=== PATIENT | female | born 1980 | race Caucasian/White ===

== ENCOUNTER 2020-06-14 09:21 | Emergency (ER) | payer MEDICAID, SELFPAY ==
[2020-06-14 09:56] VITALS: BP 120/83; PULSE 69; RESP 17; TEMP 36.3; O2SAT 120; BMI 40.2
--- NOTE | 2020-06-14 10:19 | ED_ITS ---
HPI - Ear Problem General Chief complaint: Ear Problems Stated complaint: ear pain Time Seen by Provider: 06/14/20 09:52 Source: patient Mode of arrival: ambulatory History of Present Illness HPI Narrative: 49-year-old female presenting to the ED complaining of right ear pain since last night. Admits pain radiates to head. Denies fever, chills, sore throat, hearing loss, drainage from ear, recent swimming/trauma MD Complaint: ear pain Location: right ear Related Data Previous Rx's Medication Instructions Recorded acetaminophen [Tylenol Extra 500 mg PO Q6H PRN #20 tab 06/14/20 Strength] amoxicillin-pot clavulanate 1 tab PO Q12H 7 Days #14 tab 06/14/20 [Augmentin] ibuprofen 400 mg PO Q6H 7 Days #28 tab 06/14/20 Allergies Allergy/AdvReac Type Severity Reaction Status Date / Time No Known Allergies Allergy Verified 06/14/20 09:58 [No Known Allergies*] Review of Systems Review of Systems: Constitutional: No Weight loss, No Fever, No Chills ENT/Mouth: + Ear Pain, No Nasal Congestion, No Sinus Pain, No Hoarseness, No sore throat, No Rhinorrhea, No Swallowing Difficulty Cardiovascular: No Chest Pain, No SOB Respiratory: No Cough Skin: No Skin Lesions, No rash Neuro: No Weakness, No Numbness, No Paresthesias Yes all other systems are reviewed and are negative FOR[facility]LY [facility], [facility] Past Medical History Attestation statement: The following information was validated with the patient. Social History Social History Advance Directives: No Advance Directives Information Provided: No Physical Exam Vital Signs: Vital Signs: Last Vital Signs Temp 97.4 F 06/14/20 09:56 Pulse 69 06/14/20 09:56 Resp 17 06/14/20 09:56 BP 120/83 06/14/20 09:56 Pulse Ox 120 H 06/14/20 09:56 Body Mass Index 40.2 Const: General: cooperative and healthy appearing Orientation/consciousness: patient oriented x3 Limitations: no limitations HENMT: Other: No mastoid tenderness Head: Yes normal to inspection Ears: hearing grossly normal bilaterally, TM normal on the left, mastoids normal and TM abnormal with fluid behind the TM on the right General nose exam: Normal external nose present Face and sinus: Yes normal facial exam Mouth: Normal oral and palatal mucosa present Throat: Yes posterior oropharynx normal and Yes uvula midline Eyes: General: appearance normal, both eyes and all related structures EOM: EOMs intact bilaterally Neck: Neck: Yes normal visual inspection, Yes no lymphadenopathy and Yes no meningeal signs Resp: Effort & Inspection: normal respiratory effort Skin: Rashes: no rashes Wounds: no wounds Neuro: General: patient oriented x3 and no meningeal signs Gait exam (Neuro): Normal gait present Extrem: General: Yes normal to inspection MDM - Ear MDM Narrative Medical decision making narrative: Fluid noted behind right TM. Discharge Plan Discharge Clinical Impression: Otitis media Patient Disposition: Home, Self-Care Additional Instructions: You have an inner ear infection, Augmentin as an antibiotic, take as prescribed Tylenol & ibuprofen will help with the pain Make sure your staying hydrated at home Follow-up with her doctor If symptoms persist or worsen, he developed drainage from ear, or hearing loss return to the ED immediately Prescriptions: New acetaminophen [Tylenol Extra Strength] 500 mg tablet 500 mg PO Q6H PRN (Reason: pain or fever) Qty: 20 RF: 0 ibuprofen 400 mg tablet 400 mg PO Q6H 7 Days Qty: 28 RF: 0 amoxicillin-pot clavulanate [Augmentin] 875-125 mg tablet 1 tab PO Q12H 7 Days Qty: 14 RF: 0 Referrals: [facility] [Primary Care Provider] - 2 days Print Language: Chadian
[2020-06-14] MEDS: Ibuprofen 600 MG TABLET PO (10:35)
[2020-06-14] MEDS: Amoxicillin/Potassium Clav 875 MG TABLET PO (10:35)
== END 2020-06-14 10:39 | disposition home or self-care (01) ==
PROVIDERS: Emergency Provider Emergency Medicine
DX: H66.91 Otitis media, unspecified, right ear (principal); H92.01 Otalgia, right ear; Z79.899 Other long term (current) drug therapy
CPT/HCPCS: 99283

== ENCOUNTER 2020-06-28 06:28 | Emergency (ER) | payer MEDICAID, SELFPAY ==
[2020-06-28 06:44] VITALS: BP 134/87; PULSE 78; RESP 16; TEMP 36.8; O2SAT 98; BMI 42.0
--- NOTE | 2020-06-28 07:06 | ED_ITS ---
HPI - URI/Sore Throat General Chief Complaint: Upper Respiratory Symptoms Stated Complaint: SOB Time Seen by Provider: 06/28/20 06:53 Source: patient History of Present Illness HPI Narrative: 39-year-old female who presents to the emergency department for evaluation of cough and chest pain. The patient states that she developed a strong cough last night. She states that she is coughing frequently. She describes the cough is nonproductive. She states that when she coughs forcefully she does have some mild , intermittent, midsternal chest tightness. She states that this is intermittent and only associated with coughing. She denied shortness of breath or dyspnea on exertion. The patient does have a history of asthma and states that she often gets asthma flare ups with change in weather. The patient does have an albuterol inhaler that she has when she is coughing and short of breath but she ran out of her inhaler and had used her 's inhaler last night. She denied fever, chills, nausea, vomiting, myalgias, arthralgias, fatigue, loss of sense of taste or smell. 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 Patient states approximately 2 weeks prior she was seen in the emergency department for an ear infection and was treated with Augmentin which improved her symptoms. Related Data Previous Rx's Medication Instructions Recorded acetaminophen [Tylenol Extra 500 mg PO Q6H PRN #20 tab 06/14/20 Strength] amoxicillin-pot clavulanate 1 tab PO Q12H 7 Days #14 tab 06/14/20 [Augmentin] ibuprofen 400 mg PO Q6H 7 Days #28 tab 06/14/20 albuterol sulfate 2 puff INHALATION Q4H PRN #18 g 06/28/20 prednisone 60 mg PO DAILY 5 Days #15 tab 06/28/20 Allergies Allergy/AdvReac Type Severity Reaction Status Date / Time No Known Allergies Allergy Verified 06/14/20 09:58 [No Known Allergies*] Review of Systems Review of Systems: Yes all other systems are reviewed and are negative Constitutional: Constitutional: Reports as per HPI Cardiovascular: Cardiovascular: Reports as per HPI Respiratory: Respiratory: Reports as per HPI Gastrointestinal: Gastrointestinal: Reports as per HPI Genitourinary: Genitourinary: Reports as per HPI Musculoskeletal: Musculoskeletal: Reports as per HPI Integumentary/Breasts: Skin/Breast: Reports as per HPI Neurologic: Reports as per HPI and Reports Abnormal speech present Psychiatric: Psychiatric: Reports as per HPI FORMERLY [facility], [facility] Past Medical History Medical History Asthma Social History Social History (Updated 06/28/20 @ 07:10 by Srini Phillips MD) Alcohol intake: never Smoking Status: Never smoker Use of substances other than those prescribed or required for medical reasons: No Advance Directives: Yes Advance Directives Information Provided: Yes Advance Directives on File: No Current occupational status: employed Current occupation: The patient works in a school cafeteria Physical Exam Vital Signs: Vital Signs: Last Vital Signs Temp 98.3 F 06/28/20 06:44 Pulse 78 06/28/20 06:44 Resp 16 06/28/20 06:44 BP 134/87 06/28/20 06:44 Pulse Ox 97 06/28/20 07:11 Body Mass Index 42.0 Const: General: cooperative, no acute distress, well developed, alert and awake Orientation/consciousness: oriented to person HENMT: Head: Yes normal to inspection, Yes normocephalic and Yes atraumatic Ears: hearing grossly normal bilaterally General nose exam: Normal external nose present Face and sinus: Yes normal facial exam Mouth: Normal oral and palatal mucosa present, lip normal, tongue normal, oropharynx normal and moist mucous membranes Throat: Yes posterior oropharynx normal, Yes tonsils normal and Yes uvula midline Eyes: General: appearance normal, both eyes and all related structures Eyelids: Yes eyelids normal Conjunctivae: conjunctivae normal Sclerae: sclerae normal Corneas: corneas normal Pupils: Equal, round and reactive pupils present Neck: Neck: Yes normal visual inspection, Yes no lymphadenopathy, Yes trachea midline and Yes supple Thyroid: Thyroid normal Lymphatic: no lymphadenopathy noted Chest: Chest palpation & inspection: normal inspection of the chest and normal palpation of entire chest wall Resp: Effort & Inspection: normal respiratory effort and able to speak in complete sentences Auscultation: clear to auscultation bilaterally Cardio: Rate: regular rate Rhythm: regular rhythm Heart sounds: S1 normal heart sound present, S2 normal heart sound present and no murmurs GI: Inspection: Yes normal to inspection Palpation (GI): Soft to palpation, nontender and No hepatosplenomegaly present Auscultation: normal bowel sounds : General: Yes no CVA tenderness Back/Spine/Pelvis: Back: no CVA tenderness Thoracic/Lumbar Spine: thoracic and lumbar spine normal to inspection Skin: General skin exam: no rashes or lesions noted, no erythema and no jaundice Lesions: no lesions Rashes: no rashes Trauma: no lacerations or abrasions Wounds: no wounds Neuro: General: oriented to person, moves all extremities and no focal motor deficits Cranial nerves: Yes Equal, round and reactive pupils present Cognition (Neuro): normal cognition Speech: Abnormal speech present Motor exam (neuro): Motor abnormalities not present Extrem: General: Yes normal to inspection, Yes no pedal edema and Yes no calf tenderness Right upper extremity: normal to inspection Left upper extremity: normal to inspection Right lower extremity: normal to inspection Left lower extremity: normal to inspection Psych: Appearance: grossly normal Mental Status: mental status grossly normal Speech and movement: Normal speech and movement present Affect: normal affect Attitude: cooperative Thought process: Normal thought process present Insight: Good insight present (Psych) Course Course Course Narrative: 39-year-old female with a history of asthma who presents to the emergency department for evaluation of nonproductive x1 day with associated chest tightness with coughing, no shortness of breath or dyspnea on exertion. The patient does have asthma and uses her inhaler only when she is ill, she ran out of her albuterol inhaler and had to use her 's inhaler last night. Physical examination was unremarkable with normal vital signs and a normal O2 saturation of 98%. Patient's presentation is consistent with an asthma flare up possibly due to a viral infection verses weather change. The patient will be started on prednisone 60 mg once a day for 5 days and given a prescription for an albuterol inhaler. Patient also given a note to not return to work for 2 days. She was given printed instructions and these were reviewed with her prior to her discharge. She was advised to return to emergency department if her symptoms get worse or she develops any symptoms that were concerning to her. Please note the patient's 1st language is Indian and I did use the psychiatry teacher to obtain a history from her in the emergency department. MDM - URI/Sore Throat Differential Diagnosis Differential diagnosis: Likely upper respiratory infection, viral infection and bronchitis Medical Records Attestation: I reviewed the patient's medical records. Discharge Plan Discharge Clinical Impression: Asthma exacerbation Qualifiers: Asthma severity: mild Asthma persistence: intermittent Qualified Code(s): J45.21 - Mild intermittent asthma with (acute) exacerbation Upper respiratory infection Qualifiers: URI type: unspecified URI Qualified Code(s): J06.9 - Acute upper respiratory infection, unspecified Patient Disposition: Home, Self-Care Instructions: Asthma (ED) Prescriptions: New albuterol sulfate 90 mcg/actuation HFA aerosol inhaler 2 puff inhalation Q4H PRN (Reason: shortness of breath or wheezing) Qty: 18 RF: 0 prednisone 20 mg tablet 60 mg PO DAILY 5 Days Qty: 15 RF: 0 No Action acetaminophen [Tylenol Extra Strength] 500 mg tablet 500 mg PO Q6H PRN (Reason: pain or fever) Qty: 20 RF: 0 ibuprofen 400 mg tablet 400 mg PO Q6H 7 Days Qty: 28 RF: 0 amoxicillin-pot clavulanate [Augmentin] 875-125 mg tablet 1 tab PO Q12H 7 Days Qty: 14 RF: 0 Referrals: Aurelia Martínez MD [Primary Care Provider] - 2 days Stand Alone Forms: Work/School Release
[2020-06-28 07:11] VITALS: O2SAT 97
[2020-06-28 08:17] VITALS: BP 146/92; PULSE 69; RESP 16; TEMP 36.8
== END 2020-06-28 08:24 | disposition home or self-care (01) ==
PROVIDERS: Emergency Provider Emergency Medicine Emergency Medical Services; PCP Internal Medicine
DX: J45.21 Mild intermittent asthma with (acute) exacerbation (principal); J06.9 Acute upper respiratory infection, unspecified; R05 Cough; Z79.899 Other long term (current) drug therapy
CPT/HCPCS: 99284

== ENCOUNTER 2020-08-01 08:36 | Emergency (ER) | payer MEDICAID, SELFPAY ==
[2020-08-01 08:43] VITALS: BP 119/85; PULSE 82; RESP 18; TEMP 36.5; O2SAT 98; BMI 36.1
--- NOTE | 2020-08-01 09:36 | ED_ITS ---
HPI - Female Genitourinary General Chief complaint: Urogenital-Female Stated complaint: URINE BURNING Time Seen by Provider: 08/01/20 09:15 Source: patient Mode of arrival: ambulatory History of Present Illness HPI Narrative: 39-year-old female with a past medical history of asthma presenting to the ED complaining of dysuria and sensation of incomplete bladder emptying since yesterday. Denies fever, chills, nausea/vomiting, abdominal pa in, flank pain, vaginal bleeding or discharge MD elicited complaint: dysuria Related Data Previous Rx's Medication Instructions Recorded acetaminophen [Tylenol Extra 500 mg PO Q6H PRN #20 tab 06/14/20 Strength] amoxicillin-pot clavulanate 1 tab PO Q12H 7 Days #14 tab 06/14/20 [Augmentin] ibuprofen 400 mg PO Q6H 7 Days #28 tab 06/14/20 albuterol sulfate 2 puff INHALATION Q4H PRN #18 g 06/28/20 prednisone 60 mg PO DAILY 5 Days #15 tab 06/28/20 Allergies Allergy/AdvReac Type Severity Reaction Status Date / Time No Known Allergies Allergy Verified 06/14/20 09:58 [No Known Allergies*] Review of Systems Review of Systems: Constitutional: No Weight loss, No Fever, No Chills Gastrointestinal: No Nausea, No Vomiting, No Diarrhea, No Constipation, No Abdominal pain Genitourinary:+ Dysuria, No Urinary Frequency, No Hematuria, No Urinary Incontinence, No Urgency, No Flank Pain, +incomplete emptying Skin: No Skin Lesions, No rash Yes all other systems are reviewed and are negative PMFSH Past Medical History Attestation statement: The following information was validated with the patient. Medical History Asthma Social History Social History (Updated 06/28/20 @ 07:10 by Srini Phillips MD) Alcohol intake: unknown Smoking Status: Unknown if ever smoked Use of substances other than those prescribed or required for medical reasons: No Advance Directives: No Advance Directives Information Provided: No Current occupational status: employed Current occupation: The patient works in a school cafeteria Physical Exam Vital Signs: Vital Signs: Last Vital Signs Temp 97.7 F 08/01/20 08:43 Pulse 82 08/01/20 08:43 Resp 18 08/01/20 08:43 BP 119/85 08/01/20 08:43 Pulse Ox 98 08/01/20 08:43 Body Mass Index 36.1 Const: General: cooperative and healthy appearing Orientation/consciousness: patient oriented x3 Limitations: no limitations HENMT: Head: Yes normal to inspection Ears: hearing grossly normal bilaterally General nose exam: Normal external nose present Face and sinus: Yes normal facial exam Eyes: General: appearance normal, both eyes and all related structures EOM: EOMs intact bilaterally Neck: Neck: Yes normal visual inspection Resp: Effort & Inspection: normal respiratory effort Cardio: Rate: regular rate GI: Inspection: Yes normal to inspection Palpation (GI): Soft to palpation, nontender, no guarding and not rigid : General: Yes no CVA tenderness Back/Spine/Pelvis: Back: no CVA tenderness Skin: Rashes: no rashes Wounds: no wounds Neuro: General: patient oriented x3 Gait exam (Neuro): Normal gait present Extrem: General: Yes normal to inspection Course Course Course Narrative: * UA negative * Pre and postvoid bladder scan showing bladder appropriately emptying Results discussed with patient in historic interpreter. Discussed follow-up with PCP/Urology as needed. No need for blood work at this time as no CVAT or abdominal tenderness, vital signs stable, nontoxic MDM - Female Genitourinary MDM Narrative Medical decision making narrative: 39-year-old female with a past medical history of asthma presenting to the ED complaining of dysuria and sensation of incomplete bladder emptying since yesterday. On exam VS, NAD/well appearing, abdomen soft/nontender, no CVAT. Likely UTI. Lower concern for renal stone or intra-abdominal pathology. Rule out urinary retention. Lower concern for STI Plan: Pre and post void bladder scan, UA Lab Data Labs: Lab Results 08/01/20 Range/Units 09:45 Urine Color YELLOW Urine Appearance CLEAR Urine pH 6.5 (5.0-8.0) Ur Specific [place] 1.020 (1.005-1.025) Urine Protein NEG (NEG-TRACE) MG/DL Urine Glucose (UA) NEG (NEG) MG/DL Urine Ketones NEG (NEG) MG/DL Urine Blood NEG (NEG) Urine Nitrite NEG (NEG) Ur Leukocyte Esterase NEG (NEG) Discharge Plan Discharge Clinical Impression: Dysuria Patient Disposition: Home, Self-Care Instructions: Dysuria (ED) Additional Instructions: Your urine was unremarkable today in the ED. your bladder scan showed that her bladder is emptying appropriately. Make sure your staying hydrated at home. Follow up with her doctor, you may also follow-up with Urology. If her symptoms persist or worsen, he develops fever, blood in her urine, abdominal pain, or back pain return to the ED Tu orina no fue notable hoy en el servicio de urgencias. braxton exploraci?n de la vejiga mostr? que braxton vejiga se est? vaciando adecuadamente. Aseg?rate de mantenerte hidratado en casa. Mj un seguimiento con braxton m?dico, tambi?n puede hacer un seguimiento con Urolog?a. Si julio c s?ntomas persisten o empeoran, ?l presenta fiebre, pardeep en la orina, dolor abdominal o dolor de espalda y regresa al servicio de urgencias. Prescriptions: No Action acetaminophen [Tylenol Extra Strength] 500 mg tablet 500 mg PO Q6H PRN (Reason: pain or fever) Qty: 20 RF: 0 ibuprofen 400 mg tablet 400 mg PO Q6H 7 Days Qty: 28 RF: 0 amoxicillin-pot clavulanate [Augmentin] 875-125 mg tablet 1 tab PO Q12H 7 Days Qty: 14 RF: 0 albuterol sulfate 90 mcg/actuation HFA aerosol inhaler 2 puff inhalation Q4H PRN (Reason: shortness of breath or wheezing) Qty: 18 RF: 0 prednisone 20 mg tablet 60 mg PO DAILY 5 Days Qty: 15 RF: 0 Referrals: Helen Holden MD [Primary Care Provider] - 2 days Frankie Gonzalez MD [Physician] - 1 week Print Language: Upper Sorbian
[2020-08-01 09:52] LABS: Appearance Urine CLEAR; Color Urine YELLOW; Glucose Urine UA NEG (NEG); Leukocyte Esterase Urine NEG (NEG); Nitrite Urine NEG (NEG); PH 6.5 (5.0-8.0); Urine Blood NEG (NEG); Urine Ketones NEG (NEG); Urine Protein NEG (NEG-TRACE)
== END 2020-08-01 11:15 | disposition home or self-care (01) ==
PROVIDERS: Physician Assistant; Emergency Provider Emergency Medicine Emergency Medical Services; PCP Internal Medicine
DX: R30.0 Dysuria (principal); Z79.899 Other long term (current) drug therapy
CPT/HCPCS: 51798; 81003; 99283; 99284

== ENCOUNTER 2020-08-16 10:24 | Outpatient (REF) | payer MEDICAID, SELFPAY | END 2020-08-16 10:25 | disposition home or self-care (01) | LOC: HO.LAB 10:24 | PROVIDERS: Visit Provider Internal Medicine | DX: Z20.822 Contact with and (suspected) exposure to COVID-19 (principal) | CPT/HCPCS: 36415; C9803; U0003 ==

== ENCOUNTER 2020-09-23 04:40 | Emergency (ER) | payer MEDICAID, SELFPAY ==
--- NOTE | ~2020-09-23 | CT_ITS ---
EXAMINATION: CT ABDOMEN AND PELVIS WITH CONTRAST CLINICAL INFORMATION: Right lower quadrant pain COMPARISON: Ultrasound of September 13, 2018 TECHNIQUE: Multidetector volumetric images were obtained from the superior aspect of the liver through the pubic symphysis following administration 85 mL of Omnipaque 350 intravenous contrast. Sagittal and coronal reformatted images were obtained on the technologist's workstation. Oral contrast: No This CT examination was performed using dose optimization techniques as appropriate, variously including the following: *Automated exposure control *Adjustment of mA and/or kV according to patient size (this includes techniques or standardized protocols for targeted exams where dose is matched to indication/reason for exam; i.e. extremities or head) *Use of iterative reconstruction technique DLP: 1091 mGy-cm FINDINGS: LUNG BASES: The visualized lung bases are unremarkable. LIVER, GALLBLADDER, AND BILIARY TREE: The liver is normal in size, shape, and attenuation. No focal hepatic lesion or biliary ductal dilatation is present. The gallbladder is unremarkable with no evidence of radiopaque gallstones, gallbladder wall thickening, or obvious pericholecystic inflammatory changes. PANCREAS: Unremarkable. SPLEEN: Unremarkable. ADRENAL GLANDS: Unremarkable. KIDNEYS AND URETERS: The kidneys are normal in size, shape, and attenuation. No hydronephrosis, hydroureter, or calculi seen. No perinephric stranding. BLADDER: Unremarkable. GASTROINTESTINAL TRACT: No dilated loops of large or small bowel are evident. No free air or free fluid. No evidence of acute diverticulitis. The appendix is visualized and appears unremarkable. ABDOMINAL WALL: No significant hernia is appreciated. LYMPH NODES: No lymphadenopathy appreciated. VASCULAR: Unremarkable. PELVIC VISCERA: Unremarkable. OSSEOUS STRUCTURES: No acute destructive bony lesion appreciated. There is some degenerative change with marginal sclerosis seen involving the L5-S1 vertebral bodies. CT/CT abdomen pelvis w con IMPRESSION: No significant abnormality of the abdomen or pelvis identified. No evidence of acute appendicitis.
[2020-09-23 05:51] VITALS: BP 121/63; PULSE 69; RESP 18; TEMP 36.4; O2SAT 100
[2020-09-23 06:11] LABS: Glucose Urine UA NEG (NEG); Leukocyte Esterase Urine NEG (NEG); Nitrite Urine NEG (NEG); Specific Gravity - Urine >= 1.030 (1.005-1.025); Urine Blood TRACE (NEG); Urine Ketones NEG (NEG); Urine Protein NEG (NEG-TRACE)
[2020-09-23 06:13] LABS: Appearance Urine CLEAR; Color Urine YELLOW; UPreg QC Valid YES; Urine Pregnancy NEGATIVE (NEGATIVE)
[2020-09-23 06:30] LABS: Bacteria Urine 3+ /LPF; Mucus Urine 1+ /LPF; RBC Urine 0 /HPF (0); Squamous Epithelial Cell Urine 2+ /LPF; WBC Urine 0-2 /HPF (0-4)
--- NOTE | 2020-09-23 07:23 | ED.ABDPAIN ---
HPI - Abdominal Pain General Chief Complaint: Abdominal Pain Stated Complaint: flank Pain Time Seen by Provider: 09/23/20 07:19 Source: patient Mode of arrival: ambulatory Limitations: no limitations History of Present Illness HPI narrative: healthy 39 yo female just developed RLQ pain in the last few hours with nausea, states she had a normal day yesterday MD elicited complaint: abdominal pain Pertinent past history: none Onset (ago): hour(s) (3) Pain Consistency: constant Location: RUQ Severity: moderate Quality: cramping and stabbing Radiation: RLQ Migration to: no migration Exacerbating factors: movement Relieving factors: nothing Associated symptoms: nausea Related Data Previous Rx's Medication Instructions Recorded acetaminophen [Tylenol Extra 500 mg PO Q6H PRN #20 tab 06/14/20 Strength] amoxicillin-pot clavulanate 1 tab PO Q12H 7 Days #14 tab 06/14/20 [Augmentin] ibuprofen 400 mg PO Q6H 7 Days #28 tab 06/14/20 albuterol sulfate 2 puff INHALATION Q4H PRN #18 g 06/28/20 prednisone 60 mg PO DAILY 5 Days #15 tab 06/28/20 dicyclomine 20 mg PO TID PRN #30 tab 09/23/20 famotidine [Pepcid] 20 mg PO DAILY PRN #30 tab 09/23/20 ondansetron 4 mg PO Q8H PRN #20 tab 09/23/20 Allergies Allergy/AdvReac Type Severity Reaction Status Date / Time No Known Allergies Allergy Verified 06/14/20 09:58 [No Known Allergies*] Review of Systems Review of Systems Constitutional : No Weight loss, No Fever, No Chills ENT/Mouth : No sore throat, No Rhinorrhea Eyes: No Swelling, No Redness Cardiovascular : No Chest Pain, No SOB, NoEdema Respiratory : No Cough, No Sputum, No Wheezing Gastrointestinal : Positive Nausea, no Vomiting, no Diarrhea, positive abdominal Pain, No Hematochezia, No Melena Genitourinary : No Dysuria, No Urinary Frequency, No Hematuria, No Urgency Musculoskeletal : No joint pain, No Myalgias, No Joint Swelling Skin : No Skin Lesions, No rash Neuro : No Weakness, No Numbness, No Dizziness, No Headache Psych : No Anxiety/Panic, No Depression Heme/Lymph: No Bruising, No Lymphadenopathy Endocrine : No Polyuria, No Polydipsia All other systems reviewed and are negative. Physical Exam Vital Signs: Vital Signs: Last Vital Signs Temp 98.2 F 09/23/20 10:00 Pulse 58 09/23/20 10:00 Resp 18 09/23/20 10:00 BP 129/87 09/23/20 10:00 Pulse Ox 100 09/23/20 10:00 Body Mass Index 40.3 Appearance: Alert. Oriented X3. No acute distress. Eyes: Pupils equal, round and reactive to light. ENT: Pharynx normal. Neck: Normal inspection. Neck supple. CVS: Normal heart rate and rhythm. Pulses normal. Respiratory: No respiratory distress. Breath sounds normal. Abdomen: Soft and moderate RLQ ttp no rebound or guarding Skin: Skin warm and dry. Normal skin color. Normal skin turgor. Extremities: No lower extremity edema. No calf ttp Neuro: Oriented X 3. No motor deficit. No sensory deficit. Course Course Course Narrative: no acute findings, stable for DC MDM - Abdominal Pain MDM Narrative Medical decision making narrative: 39 yo female otherwise healthy with RLQ pain this AM and associated nausea will obtain labs, CT scan for appendicitis/cyst - IV Toradol for pain dispo per results and findings. Lab Data Result diagrams: 09/23/20 08:06 09/23/20 08:06 Labs: Lab Results 09/23/20 09/23/20 09/23/20 Range/Units 06:05 06:05 08:06 WBC 4.7 L (4.8-10.8) X10*3/uL RBC 4.24 (4.20-5.50) X10*6/uL Hgb 12.8 (12.0-16.0) g/dl Hct 37.8 (37-47) % MCV 89.2 (80-98) fL MCH 30.2 (27.0-33.0) pg MCHC 33.9 (31.0-35.0) g/dl RDW 11.9 (11.0-16.0) % Plt Count 217 (160-400) X10*3/uL MPV 9.1 L (9.4-12.3) fL Immature Gran % (Auto) 0.2 (0.0-0.4) % Neut % (Auto) 68.9 (45-73) % Lymph % (Auto) 21.9 (20-40) % [place] % (Auto) 6.7 (2-11) % Eos % (Auto) 1.9 (0-4) % Baso % (Auto) 0.4 (0-2) % Lymph # (Auto) 1.0 L (1.2-4.9) X10*3/uL [place] # (Auto) 0.3 (0.1-1.2) X10*3/uL Eos # (Auto) 0.1 (0.0-0.4) X10*3/uL Baso # (Auto) 0.0 (0.0-0.2) X10*3/uL Abs Immat Gran (auto) 0.01 (0.00-0.03) X10*3/uL Absolute Neuts (auto) 3.2 (2.0-8.3) X10*3/uL Absolute Nucleated RBC 0.000 (0.0-0.012) X10*3/uL Nucleated RBC % (auto) 0.0 (0.0-0.2) /100WBC Hold Blue Top Sodium (135-145) mmol/L Potassium (3.3-5.1) mmol/L Chloride (96-108) mmol/L Carbon Dioxide (22-29) mmol/L Anion Gap (12-20) BUN (9-16) mg/dL Creatinine (0.5-1.4) mg/dL Estim Creat Clear Calc Estimated GFR Random Glucose (60-115) mg/dL Calcium (8.4-10.2) mg/dL Magnesium (1.6-2.6) mg/dL Total Bilirubin (0.0-1.0) mg/dL Direct Bilirubin (0.0-0.5) mg/dL AST (5-31) U/L ALT (0-31) U/L Alkaline Phosphatase (39-117) U/L Total Protein (6.5-8.0) g/dL Albumin (3.5-5.0) g/dL Lipase (8-78) U/L Urine Color YELLOW Urine Appearance CLEAR Urine pH 6.0 (5.0-8.0) Ur Specific [place] >= 1.030 H (1.005-1.025) Urine Protein NEG (NEG-TRACE) MG/DL Urine Glucose (UA) NEG (NEG) MG/DL Urine Ketones NEG (NEG) MG/DL Urine Blood TRACE (NEG) Urine Nitrite NEG (NEG) Ur Leukocyte Esterase NEG (NEG) Urine RBC 0 (0) /HPF Urine WBC 0-2 (0-4) /HPF Ur Squamous Epith Cells 2+ /LPF Urine Bacteria 3+ /LPF Urine Mucus 1+ /LPF Urine Test NEGATIVE (NEGATIVE) COVID-19 ([facility]) (Negative) COVID-19 Clin Com 09/23/20 09/23/20 09/23/20 Range/Units 08:06 08:06 09:09 WBC (4.8-10.8) X10*3/uL RBC (4.20-5.50) X10*6/uL Hgb (12.0-16.0) g/dl Hct (37-47) % MCV (80-98) fL MCH (27.0-33.0) pg MCHC (31.0-35.0) g/dl RDW (11.0-16.0) % Plt Count (160-400) X10*3/uL MPV (9.4-12.3) fL Immature Gran % (Auto) (0.0-0.4) % Neut % (Auto) (45-73) % Lymph % (Auto) (20-40) % [place] % (Auto) (2-11) % Eos % (Auto) (0-4) % Baso % (Auto) (0-2) % Lymph # (Auto) (1.2-4.9) X10*3/uL [place] # (Auto) (0.1-1.2) X10*3/uL Eos # (Auto) (0.0-0.4) X10*3/uL Baso # (Auto) (0.0-0.2) X10*3/uL Abs Immat Gran (auto) (0.00-0.03) X10*3/uL Absolute Neuts (auto) (2.0-8.3) X10*3/uL Absolute Nucleated RBC (0.0-0.012) X10*3/uL Nucleated RBC % (auto) (0.0-0.2) /100WBC Hold Blue Top SEE NOTE Sodium 137 (135-145) mmol/L Potassium 4.0 (3.3-5.1) mmol/L Chloride 102 (96-108) mmol/L Carbon Dioxide 30 H (22-29) mmol/L Anion Gap 9 L (12-20) BUN 13 (9-16) mg/dL Creatinine 0.75 (0.5-1.4) mg/dL Estim Creat Clear Calc 111.4 Estimated GFR > 60 Random Glucose 107 (60-115) mg/dL Calcium 8.6 (8.4-10.2) mg/dL Magnesium 2.0 (1.6-2.6) mg/dL Total Bilirubin 0.5 (0.0-1.0) mg/dL Direct Bilirubin 0.2 (0.0-0.5) mg/dL AST 15 (5-31) U/L ALT 18 (0-31) U/L Alkaline Phosphatase 48 (39-117) U/L Total Protein 7.2 (6.5-8.0) g/dL Albumin 4.1 (3.5-5.0) g/dL Lipase 26 (8-78) U/L Urine Color Urine Appearance Urine pH (5.0-8.0) Ur Specific [place] (1.005-1.025) Urine Protein (NEG-TRACE) MG/DL Urine Glucose (UA) (NEG) MG/DL Urine Ketones (NEG) MG/DL Urine Blood (NEG) Urine Nitrite (NEG) Ur Leukocyte Esterase (NEG) Urine RBC (0) /HPF Urine WBC (0-4) /HPF Ur Squamous Epith Cells /LPF Urine Bacteria /LPF Urine Mucus /LPF Urine Test (NEGATIVE) COVID-19 ([facility]) Negative (Negative) COVID-19 Clin Com See Note Discharge Plan Discharge Clinical Impression: Abdominal pain Qualifiers: Abdominal location: right lower quadrant Qualified Code(s): R10.31 - Right lower quadrant pain Patient Disposition: Home, Self-Care Instructions: Abdominal Pain (ED) Additional Instructions: return to ED for any worsening symptoms or concerns Prescriptions: New famotidine [Pepcid] 20 mg tablet 20 mg PO DAILY PRN (Reason: abdominal discomfort) Qty: 30 RF: 0 ondansetron 4 mg tablet,disintegrating 4 mg PO Q8H PRN (Reason: nausea and vomiting) Qty: 20 RF: 0 dicyclomine 20 mg tablet 20 mg PO TID PRN (Reason: abdominal discomfort) Qty: 30 RF: 0 No Action acetaminophen [Tylenol Extra Strength] 500 mg tablet 500 mg PO Q6H PRN (Reason: pain or fever) Qty: 20 RF: 0 ibuprofen 400 mg tablet 400 mg PO Q6H 7 Days Qty: 28 RF: 0 amoxicillin-pot clavulanate [Augmentin] 875-125 mg tablet 1 tab PO Q12H 7 Days Qty: 14 RF: 0 albuterol sulfate 90 mcg/actuation HFA aerosol inhaler 2 puff inhalation Q4H PRN (Reason: shortness of breath or wheezing) Qty: 18 RF: 0 prednisone 20 mg tablet 60 mg PO DAILY 5 Days Qty: 15 RF: 0 Referrals: Physician,Unknown [Primary Care Provider] - 2 days (if not better) Stand Alone Forms: Work/School Release [facility] Past Medical History Attestation statement: The following information was validated with the patient. Medical History Asthma Social History Social History Alcohol intake: current Alcohol intake frequency: holidays/special occasions only Smoking Status: Former smoker Use of substances other than those prescribed or required for medical reasons: No Advance Directives: No Advance Directives Information Provided: Yes Current occupational status: employed Current occupation: The patient works in a school cafeteria
[2020-09-23 07:54] VITALS: BP 121/81; PULSE 56; RESP 18; TEMP 36.6; O2SAT 99; BMI 40.3
[2020-09-23 08:00] VITALS: BP 122/82; PULSE 62; RESP 18; TEMP 36.6; O2SAT 99
[2020-09-23 08:13] LABS: MANUAL DIFF FLAG NO
[2020-09-23 08:15] LABS: Basophils Percent Auto 0.4 % (0-2); Eosinophils Absolute Auto 0.1 X10*3/uL (0.0-0.4); Eosinophils Percent Auto 1.9 % (0-4); Hematocrit 37.8 % (37-47); Hemoglobin 12.8 g/dl (12.0-16.0); Imm Gran Abs Auto 0.01 X10*3/uL (0.00-0.03); Imm Gran Pct Auto 0.2 % (0.0-0.4); Lymphocytes Percent Auto 21.9 % (20-40); Mean Corpuscular HGB Conc 33.9 g/dl (31.0-35.0); Mean Corpuscular Hemoglobin 30.2 pg (27.0-33.0); Mean Corpuscular Volume 89.2 fL (80-98); Mean Platelet Volume 9.1 fL (9.4-12.3); Monocytes Absolute Auto 0.3 X10*3/uL (0.1-1.2); Monocytes Percent Auto 6.7 % (2-11); Neutrophils Absolute Auto 3.2 X10*3/uL (2.0-8.3); Neutrophils Percent Auto 68.9 % (45-73); Platelet Count 217 X10*3/uL (160-400); Red Blood Count 4.24 X10*6/uL (4.20-5.50); Red Cell Distribution Width 11.9 % (11.0-16.0); White Blood Count 4.7 X10*3/uL (4.8-10.8)
[2020-09-23] MEDS: 0.9 % Sodium Chloride 1,000 ML 999 ML IVCONT (08:28)
[2020-09-23] MEDS: ondansetron HCL 4 MG/2 ML VIAL IVPUSH (08:28)
[2020-09-23] MEDS: Ketorolac Tromethamine 30 MG/ML VIAL IVPUSH (08:28)
[2020-09-23 08:59] LABS: Alanine Aminotransferase 18 U/L (0-31); Albumin Level 4.1 g/dL (3.5-5.0); Alkaline Phosphatase 48 U/L (39-117); Anion Gap 9 (12-20); Aspartate Amino Transferase 15 U/L (5-31); Bilirubin Direct 0.2 mg/dL (0.0-0.5); Bilirubin Total 0.5 mg/dL (0.0-1.0); Blood Urea Nitrogen 13 mg/dL (9-16); Calcium 8.6 mg/dL (8.4-10.2); Carbon Dioxide 30 mmol/L (22-29); Chloride 102 mmol/L (96-108); Creatinine Clr Calc Pharmacy 111.4; Estimated Glomerular Filt Rate > 60; Glucose Random 107 mg/dL (60-115); Lipase 26 U/L (8-78); Sodium 137 mmol/L (135-145); Total Protein 7.2 g/dL (6.5-8.0)
[2020-09-23] MEDS: iohexoL 350 MG/ML 100 ML INFUS..BTL IV (09:35)
[2020-09-23 09:50] LABS: COVID-19 Test Negative (Negative); IDNOW Serial# 9DD0AD1C
[2020-09-23 10:00] VITALS: BP 129/87; PULSE 58; RESP 18; TEMP 36.8; O2SAT 100
--- NOTE | 2020-09-23 10:35 | PC.NURSE ---
CT RESULTS PENDING PT UDATED ON PLAN EDUCATED THAT SHE NEEDED TO WAIT ON CT RESULT BEFORE TAKING PO.
== END 2020-09-23 11:00 | disposition home or self-care (01) ==
PROVIDERS: Emergency Provider Emergency Medicine
DX: R10.31 Right lower quadrant pain (principal); Z20.822 Contact with and (suspected) exposure to COVID-19
CPT/HCPCS: 36415; 74177; 80048; 80076; 81001; 81025; 83690; 83735; 85025; 87635; 96361; 96374; 96375; 99284; J1885; J2405; Q9967

== ENCOUNTER 2020-12-31 15:37 | Emergency (ER) | payer MEDICAID, SELFPAY ==
[2020-12-31 16:01] VITALS: BP 130/87; PULSE 61; RESP 18; TEMP 37.1; O2SAT 98; BMI 39.4
== END 2020-12-31 20:45 | disposition left against medical advice (07) ==
PROVIDERS: Emergency Provider Emergency Medicine
DX: R51.9 Headache, unspecified (principal)
CPT/HCPCS: 99281; 99282

== ENCOUNTER 2021-12-27 13:48 | Outpatient (REF) | payer MEDICAID, SELFPAY ==
--- NOTE | ~2021-12-27 | XR_ITS ---
EXAMINATION: XR HIP, RIGHT CLINICAL INFORMATION: Right hip pain. COMPARISON: Most recent pelvic radiograph dated 06/11/2017. TECHNIQUE: Two views of the right hip. FINDINGS: Mild right hip joint space narrowing with lateral acetabular marginal osteophytes, unchanged. No acute fracture or dislocation. No osseous erosion. No abnormal soft tissue calcification. XR/XR hip RT min 2V IMPRESSION: Mild right hip osteoarthritis, unchanged.
== END 2021-12-27 13:49 | disposition home or self-care (01) ==
LOC: HO.XRAY 13:48
PROVIDERS: Absent Provider Internal Medicine; PCP Internal Medicine; Visit Provider Emergency Medicine
DX: M25.551 Pain in right hip (principal)
CPT/HCPCS: 73502

== ENCOUNTER 2022-01-08 07:44 | Emergency (ER) | payer MEDICAID, SELFPAY ==
--- NOTE | ~2022-01-08 | XR_ITS ---
EXAMINATION: XR CHEST CLINICAL INFORMATION: Cough, shortness of breath. COMPARISON: None. TECHNIQUE: AP portable upright view of the chest FINDINGS: Lungs are clear. No consolidation, pneumothorax, or pleural effusion. Cardiac and mediastinal contours are normal. Pulmonary vasculature is unremarkable. Osseous structures are unremarkable. XR/XR chest 1V IMPRESSION: No acute cardiopulmonary findings
[2022-01-08 07:47] VITALS: BP 142/84; PULSE 70; RESP 18; TEMP 36.2; O2SAT 97; BMI 38.9
--- NOTE | 2022-01-08 07:48 | ECG_ITS ---
Test Reason : FERNAD Blood Pressure : / mmHG Vent. Rate : 108 BPM Atrial Rate : 108 BPM P-R Int : 136 ms QRS Dur : 086 ms QT Int : 336 ms P-R-T Axes : 035 004 014 degrees QTc Int : 450 ms Sinus tachycardia Nonspecific ST and T wave abnormality Abnormal ECG No previous ECGs available Referred By: Bina Coreas Electronically Signed By:CLINTON LEE
--- NOTE | 2022-01-08 08:46 | ED.ASTHMA ---
HPI - Asthma General Chief Complaint: Asthma Stated Complaint: Asthma Time Seen by Provider: 01/08/22 08:34 Source: patient Mode of arrival: ambulatory History of Present Illness HPI Narrative: 41-year-old female with history asthma but denies cigarette smoking presents with increasing shortness of breath since Sunday with cough, increase wheeze but denies any fever, chills, sore throat, chest pain/palpitations. Related Data Previous Rx's Medication Instructions Recorded acetaminophen 500 mg tablet 500 mg PO Q6H PRN #20 tab 06/14/20 (Tylenol Extra Strength) amoxicillin 875 mg-potassium 1 tab PO Q12H 7 Days #14 tab 06/14/20 clavulanate 125 mg tablet (Augmentin) ibuprofen 400 mg tablet 400 mg PO Q6H 7 Days #28 tab 06/14/20 albuterol sulfate 90 mcg/actuation 2 puff INHALATION Q4H PRN #18 g 06/28/20 aerosol inhaler prednisone 20 mg tablet 60 mg PO DAILY 5 Days #15 tab 06/28/20 dicyclomine 20 mg tablet 20 mg PO TID PRN #30 tab 09/23/20 famotidine 20 mg tablet (Pepcid) 20 mg PO DAILY PRN #30 tab 09/23/20 ondansetron 4 mg disintegrating 4 mg PO Q8H PRN #20 tab 09/23/20 tablet prednisone 50 mg tablet 50 mg PO DAILY 4 Days #4 tab 01/08/22 Allergies Allergy/AdvReac Type Severity Reaction Status Date / Time No Known Allergies Allergy Verified 12/31/20 16:01 [No Known Allergies*] Review of Systems Review of Systems: Pertinent positives and negatives as stated in HPI 10 point review of systems otherwise negative. PENDING SALE TO [facility] Past Medical History Source: nursing notes reviewed Medical History Asthma Social History Social History Alcohol intake: current Alcohol intake frequency: holidays/special occasions only Advance Directives: No Advance Directives Information Provided: No Current occupational status: employed Current occupation: The patient works in a school cafeteria Physical Exam Vital Signs: Vital Signs: Last Vital Signs Temp 97.2 F 01/08/22 07:47 Pulse 123 H 01/08/22 12:00 Resp 26 H 01/08/22 12:00 BP 122/69 01/08/22 12:00 Pulse Ox 96 01/08/22 12:00 BMI result Body Mass Index 38.9 VITAL SIGNS: Reviewed. GENERAL: Well developed, well nourished, in no acute distress. HEAD: Normocephalic/atraumatic EYES: PERRLA, EOMI EARS: Ext canals without abnormality OROPHARYNX: no oral lesions noted, posterior pharynx clear LUNGS: Good inspiratory effort, decreased breath sounds bilaterally with expiratory wheeze noted but no rhonchi/rales. SpO2<97> CARDIOVASCULAR: Regular rate and rhythm without noted murmurs ABDOMEN: Soft, non-tender, non-distended with bowel sounds. MUSCULOSKELETAL: No tenderness, deformities, or effusions noted on gross inspection. EXTREMITIES: No cyanosis, clubbing or edema. SKIN: Inspection of the skin reveals no rashes NEUROLOGIC: Alert and oriented x 4. Strength and sensation to light touch were grossly intact x 4. Course Course Course Narrative: 41-year-old female with history and clinical presentation consistent with acute asthma exacerbation. Review of all investigations negative for acute findings and on re-evaluation patient reports that she is feeling much better. MDM - Asthma Lab Data Result diagrams: 01/08/22 09:15 01/08/22 09:15 Labs: Lab Results 01/08/22 01/08/22 Range/Units 09:15 09:15 WBC 3.9 L (4.8-10.8) X10*3/uL RBC 4.57 (4.20-5.50) X10*6/uL Hgb 13.5 (12.0-16.0) g/dl Hct 40.4 (37.0-47.0) % MCV 88.4 (80.0-98.0) fL MCH 29.5 (27.0-33.0) pg MCHC 33.4 (31.0-35.0) g/dl RDW 12.4 (11.0-16.0) % Plt Count 177 (160-400) X10*3/uL MPV 9.1 L (9.4-12.3) fL Immature Gran % (Auto) 0.3 (0.0-0.4) % Neut % (Auto) 48.3 (45-73) % Lymph % (Auto) 31.6 (20-40) % [place] % (Auto) 14.9 H (2-11) % Eos % (Auto) 4.4 H (0-4) % Baso % (Auto) 0.5 (0-2) % Lymph # (Auto) 1.2 (1.2-4.9) X10*3/uL [place] # (Auto) 0.6 (0.1-1.2) X10*3/uL Eos # (Auto) 0.2 (0.0-0.4) X10*3/uL Baso # (Auto) 0.0 (0.0-0.2) X10*3/uL Abs Immat Gran (auto) 0.01 (0.00-0.03) X10*3/uL Absolute Neuts (auto) 1.9 L (2.0-8.3) x10*3/uL Absolute Nucleated RBC 0.000 (0.0-0.012) X10*3/uL Nucleated RBC % (auto) 0.0 (0.0-0.2) /100WBC Sodium 141 (135-145) mmol/L Potassium 3.6 (3.3-5.1) mmol/L Chloride 104 (96-108) mmol/L Carbon Dioxide 26 (22-29) mmol/L Anion Gap 15 (12-20) BUN 14 (9-16) mg/dL Creatinine 0.84 (0.5-1.4) mg/dL Estim Creat Clear Calc 99.3 Estimated GFR > 60 Random Glucose 110 (60-115) mg/dL Calcium 9.1 (8.4-10.2) mg/dL Total Bilirubin 0.4 (0.0-1.0) mg/dL AST 15 (5-31) U/L ALT 16 (0-31) U/L Alkaline Phosphatase 46 (39-117) U/L Total Protein 7.6 (6.5-8.0) g/dL Albumin 4.3 (3.5-5.0) g/dL ECG Data Attestation: I personally reviewed and interpreted this ECG as follows: Prior ECG tracings: not available for review Interpretation: Sinus tachycardia, HR-1 awake, no STEMI, ME/QRS/QTC are within normal limits. Discharge Plan Discharge Clinical Impression: Asthma with acute exacerbation Patient Disposition: Home, Self-Care Instructions: Asthma (ED) Additional Instructions: 1. Reanudar todos los medicamentos caseros seg?n lo prescrito. 2. Complete el curso de esteroides que le crouch proporcionado. 3. Mj un seguimiento con braxton proveedor de atenci?n primaria en los pr?ximos 1 a 2 d?as para fan reevaluaci?n. Regrese a la rohan de emergencias si los s?ntomas empeoran. Prescriptions: New prednisone 50 mg tablet 50 mg PO DAILY 4 Days Qty: 4 0RF No Action acetaminophen [Tylenol Extra Strength] 500 mg tablet 500 mg PO Q6H PRN (Reason: pain or fever) Qty: 20 0RF ibuprofen 400 mg tablet 400 mg PO Q6H 7 Days Qty: 28 0RF amoxicillin-pot clavulanate [Augmentin] 875-125 mg tablet 1 tab PO Q12H 7 Days Qty: 14 0RF albuterol sulfate 90 mcg/actuation HFA aerosol inhaler 2 puff inhalation Q4H PRN (Reason: shortness of breath or wheezing) Qty: 18 0RF prednisone 20 mg tablet 60 mg PO DAILY 5 Days Qty: 15 0RF famotidine [Pepcid] 20 mg tablet 20 mg PO DAILY PRN (Reason: abdominal discomfort) Qty: 30 0RF ondansetron 4 mg tablet,disintegrating 4 mg PO Q8H PRN (Reason: nausea and vomiting) Qty: 20 0RF dicyclomine 20 mg tablet 20 mg PO TID PRN (Reason: abdominal discomfort) Qty: 30 0RF Referrals: Helen Holden MD [Primary Care Provider] - Print Language: Indian
[2022-01-08] MEDS: Albuterol Sulfate (0.083%) 2.5 MG/3 ML VIAL.NEB 10 MG INHALE ×2 (08:47→10:41)
[2022-01-08 08:48] VITALS: PULSE 70; RESP 20; O2SAT 97
[2022-01-08] MEDS: methylPREDNISolone Sod Succ 125 MG/2 ML VIAL IVPUSH (09:15)
[2022-01-08 09:21] LABS: MANUAL DIFF FLAG NO
[2022-01-08 09:22] LABS: Basophils Percent Auto 0.5 % (0-2); Eosinophils Absolute Auto 0.2 X10*3/uL (0.0-0.4); Eosinophils Percent Auto 4.4 % (0-4); Hematocrit 40.4 % (37.0-47.0); Hemoglobin 13.5 g/dl (12.0-16.0); Imm Gran Abs Auto 0.01 X10*3/uL (0.00-0.03); Imm Gran Pct Auto 0.3 % (0.0-0.4); Lymphocytes Absolute Auto 1.2 X10*3/uL (1.2-4.9); Lymphocytes Percent Auto 31.6 % (20-40); Mean Corpuscular HGB Conc 33.4 g/dl (31.0-35.0); Mean Corpuscular Hemoglobin 29.5 pg (27.0-33.0); Mean Corpuscular Volume 88.4 fL (80.0-98.0); Mean Platelet Volume 9.1 fL (9.4-12.3); Monocytes Absolute Auto 0.6 X10*3/uL (0.1-1.2); Monocytes Percent Auto 14.9 % (2-11); Neutrophils Absolute Auto 1.9 x10*3/uL (2.0-8.3); Neutrophils Percent Auto 48.3 % (45-73); Platelet Count 177 X10*3/uL (160-400); Red Blood Count 4.57 X10*6/uL (4.20-5.50); Red Cell Distribution Width 12.4 % (11.0-16.0); White Blood Count 3.9 X10*3/uL (4.8-10.8)
[2022-01-08 09:40] LABS: Alanine Aminotransferase 16 U/L (0-31); Albumin Level 4.3 g/dL (3.5-5.0); Alkaline Phosphatase 46 U/L (39-117); Anion Gap 15 (12-20); Aspartate Amino Transferase 15 U/L (5-31); Bilirubin Total 0.4 mg/dL (0.0-1.0); Blood Urea Nitrogen 14 mg/dL (9-16); Calcium 9.1 mg/dL (8.4-10.2); Carbon Dioxide 26 mmol/L (22-29); Chloride 104 mmol/L (96-108); Creatinine Clr Calc Pharmacy 99.3; Estimated Glomerular Filt Rate > 60; Glucose Random 110 mg/dL (60-115); Potassium 3.6 mmol/L (3.3-5.1); Sodium 141 mmol/L (135-145); Total Protein 7.6 g/dL (6.5-8.0)
[2022-01-08 10:41] VITALS: PULSE 90; RESP 17; O2SAT 97
[2022-01-08 12:00] VITALS: BP 122/69; PULSE 123; RESP 26; O2SAT 96
--- NOTE | 2022-01-08 12:23 | PC.NURSE ---
Pt resting on stretcher, 2ns neb treatment completed. Awaiting MD reeval at this time, exp wheezes remain, ST on the monitor. Call merritt within reach, will continue to monitor.
[2022-01-08] MEDS: Albuterol Sulfate 90 MCG 8 GM INHALER 2 PUFF INHALE (13:04)
== END 2022-01-08 13:12 | disposition home or self-care (01) ==
PROVIDERS: Emergency Provider Student in an Organized Health Care Education/Training Program; PCP Internal Medicine
DX: J45.901 Unspecified asthma with (acute) exacerbation (principal)
CPT/HCPCS: 36415; 71045; 80053; 85025; 93005; 94644; 94645; 96374; 99284; J2930

== ENCOUNTER → 2022-01-25 08:43 | Outpatient (BNVA) | payer MEDICAID, SELFPAY | PROVIDERS: PCP Internal Medicine; Visit Provider Physician Assistant | DX: M70.61 Trochanteric bursitis, right hip (principal) | CPT/HCPCS: 99202 ==

== ENCOUNTER 2022-05-16 13:45 | Outpatient (REF) | payer MEDICAID, SELFPAY ==
--- NOTE | ~2022-05-16 | CT_ITS ---
EXAMINATION: CT ABDOMEN AND PELVIS WITH CONTRAST CLINICAL INFORMATION: Left lower quadrant pain COMPARISON: Previous CT of the abdomen and pelvis September 2020 TECHNIQUE: Multidetector volumetric images were obtained from the superior aspect of the liver through the pubic symphysis following administration 85 mL of Omnipaque 350 intravenous contrast. Sagittal and coronal reformatted images were obtained on the technologist's workstation. Oral contrast: Yes This CT examination was performed using dose optimization techniques as appropriate, variously including the following: *Automated exposure control *Adjustment of mA and/or kV according to patient size (this includes techniques or standardized protocols for targeted exams where dose is matched to indication/reason for exam; i.e. extremities or head) *Use of iterative reconstruction technique DLP: 642 mGy-cm FINDINGS: LUNG BASES: The visualized lung bases are unremarkable. LIVER, GALLBLADDER, AND BILIARY TREE: The liver is normal in size and shape. The liver is low in attenuation suggestive of fatty infiltration. No focal hepatic lesion or biliary ductal dilatation is present. The gallbladder is unremarkable with no evidence of radiopaque gallstones, gallbladder wall thickening, or obvious pericholecystic inflammatory changes. PANCREAS: Unremarkable. SPLEEN: Unremarkable. ADRENAL GLANDS: Unremarkable. KIDNEYS AND URETERS: The kidneys are normal in size, shape, and attenuation. No hydronephrosis, hydroureter, or calculi seen. No perinephric stranding. BLADDER: Unremarkable. GASTROINTESTINAL TRACT: There is diverticulosis of the colon. No evidence of diverticulitis. The small and large bowel are otherwise unremarkable. The appendix is unremarkable. ABDOMINAL WALL: No significant hernia is appreciated. LYMPH NODES: Normal. VASCULAR: Unremarkable. PELVIC VISCERA: Unremarkable. OSSEOUS STRUCTURES: Degenerative changes of the spine. CT/CT abdomen pelvis w IV con IMPRESSION: No acute findings. Fatty infiltration of the liver. Diverticulosis of the colon. No evidence of diverticulitis. Fleischner guidelines were followed.
[2022-05-16] MEDS: Barium Sulfate Oral (Vanilla) 450 ML ORAL.SUSP 900 ML PO (16:21)
[2022-05-16] MEDS: iohexoL 350 MG/ML 100 ML INFUS..BTL IV (16:25)
== END 2022-05-16 13:46 | disposition home or self-care (01) ==
LOC: HO.CT 13:45
PROVIDERS: Visit Provider Internal Medicine
DX: R10.32 Left lower quadrant pain (principal)
CPT/HCPCS: 74177; Q9967

== ENCOUNTER 2022-09-05 15:24 | Emergency (ER) | payer MEDICAID, SELFPAY ==
--- NOTE | ~2022-09-05 | US_ITS ---
EXAMINATION: US PELVIS CLINICAL INFORMATION: Vaginal bleeding. Pelvic pain. COMPARISON: Multiple prior studies including CT scan abdomen pelvis 05/16/2022, 09/23/2020. Pelvic ultrasound 10/14/2019 TECHNIQUE: Ultrasound of the pelvis is performed using both transabdominal and transvaginal transducers along with Doppler. Transvaginal imaging is performed due to inadequate visualization transabdominally. FINDINGS: Uterus: The uterus is retroverted and measures 11.3 x 4.4 x 6.3 cm. There is a right-sided fundal fibroid measuring 2.4 x 2.9 x 2 cm. The double wall endometrial thickness is 0.5 mm. Nabothian cysts at cervix measuring 1.3 cm. The uterus is smooth in contour and has normal myometrial echogenicity. Adnexa: Both ovaries are visualized. There is normal color flow to the adnexa. Both arterial and venous flow is demonstrated in the ovaries. There is no evidence of ovarian torsion. There is no pelvic ascites or fluid collection. Right ovary measures 3.7 x 2.4 x 2 cm. Volume 9.3 mL. There are 2 small mildly echogenic foci without posterior acoustic shadowing the ovary. These measure approximately 0.8 and 0.7 cm. These are unchanged since prior pelvic ultrasound exams.. Left ovary measures 2.3 x 1.6 x 1.6 cm. Volume 3.1 mL US/US pelvic ovarian doppler IMPRESSION: 1. No acute abnormality. 2. There is a right-sided fundal fibroid measuring 2.4 x 2.9 x 2 cm. 3. There are 2 small mildly echogenic foci in the right ovary measuring approximately 0.8 and 0.7 cm. These are stable since prior ultrasound exams.
--- NOTE | ~2022-09-05 | CT_ITS ---
EXAMINATION: CT ABDOMEN AND PELVIS WITHOUT CONTRAST CLINICAL INFORMATION: Right lower quadrant COMPARISON: Pelvic ultrasound earlier today, CT abdomen pelvis 05/16/2022 TECHNIQUE: Multidetector volumetric imaging was performed from the superior aspect of the liver through the pubic symphysis. Sagittal and coronal reformatted images were obtained on the technologist's workstation. This CT examination was performed using dose optimization techniques as appropriate, variously including the following: *Automated exposure control *Adjustment of mA and/or kV according to patient size (this includes techniques or standardized protocols for targeted exams where dose is matched to indication/reason for exam; i.e. extremities or head) *Use of iterative reconstruction technique DLP: 975 mGy-cm FINDINGS: LUNG BASES: The visualized lung bases are unremarkable. LIVER, GALLBLADDER, AND BILIARY TREE: The liver is enlarged at 20.6 cm in cephalocaudad dimension and demonstrates decreased attenuation consistent with hepatic steatosis. Some focal fatty sparing is present. No focal hepatic lesion or biliary ductal dilatation is present. The gallbladder is unremarkable with no evidence of radiopaque gallstones, gallbladder wall thickening, or obvious pericholecystic inflammatory changes. PANCREAS: Unremarkable. SPLEEN: Unremarkable. ADRENAL GLANDS: Unremarkable. KIDNEYS AND URETERS: The kidneys are normal in size, shape, and attenuation. No hydronephrosis, hydroureter, or calculi seen. No perinephric stranding. BLADDER: Empty but unremarkable. GASTROINTESTINAL TRACT: The small and large bowel are unremarkable. The appendix is unremarkable. ABDOMINAL WALL: No significant hernia is appreciated. LYMPH NODES: No retroperitoneal lymphadenopathy. VASCULAR: Unremarkable. PELVIC VISCERA: Lobular contour of the uterus consistent with uterine fibroid seen on prior imaging studies. An abnormal adnexal mass is not seen. No free intraperitoneal fluid is present. OSSEOUS STRUCTURES: Minimal spondylitic degenerative changes present spine most marked at L5-S1. CT/CT abdomen pelvis wo IV con IMPRESSION: 1. A cause for the patient's right lower quadrant pain has not been found. The appendix is normal. 2. Incidental note made of enlarged fatty liver and uterine fibroids. Fleischner guidelines were followed.
--- NOTE | ~2022-09-05 | US_ITS ---
EXAMINATION: US PELVIS CLINICAL INFORMATION: Vaginal bleeding. Pelvic pain. COMPARISON: Multiple prior studies including CT scan abdomen pelvis 05/16/2022, 09/23/2020. Pelvic ultrasound 10/14/2019 TECHNIQUE: Ultrasound of the pelvis is performed using both transabdominal and transvaginal transducers along with Doppler. Transvaginal imaging is performed due to inadequate visualization transabdominally. FINDINGS: Uterus: The uterus is retroverted and measures 11.3 x 4.4 x 6.3 cm. There is a right-sided fundal fibroid measuring 2.4 x 2.9 x 2 cm. The double wall endometrial thickness is 0.5 mm. Nabothian cysts at cervix measuring 1.3 cm. The uterus is smooth in contour and has normal myometrial echogenicity. Adnexa: Both ovaries are visualized. There is normal color flow to the adnexa. Both arterial and venous flow is demonstrated in the ovaries. There is no evidence of ovarian torsion. There is no pelvic ascites or fluid collection. Right ovary measures 3.7 x 2.4 x 2 cm. Volume 9.3 mL. There are 2 small mildly echogenic foci without posterior acoustic shadowing the ovary. These measure approximately 0.8 and 0.7 cm. These are unchanged since prior pelvic ultrasound exams.. Left ovary measures 2.3 x 1.6 x 1.6 cm. Volume 3.1 mL US/US pelvic and transvaginal IMPRESSION: 1. No acute abnormality. 2. There is a right-sided fundal fibroid measuring 2.4 x 2.9 x 2 cm. 3. There are 2 small mildly echogenic foci in the right ovary measuring approximately 0.8 and 0.7 cm. These are stable since prior ultrasound exams.
[2022-09-05 16:02] VITALS: BP 137/86; PULSE 88; RESP 16; TEMP 36.1; O2SAT 99; BMI 42.0
--- NOTE | 2022-09-05 16:07 | ED.GENADULT ---
HPI - General Adult General Chief complaint: Abdominal Pain Stated complaint: Right ovary pain/ vaginal bleeding Time Seen by Provider: 09/05/22 19:52 Related Data Home Medications Medication Instructions Recorded Confirmed ibuprofen 800 mg tablet 800 mg PO TID PRN pain 01/25/22 multivitamin 1 tab PO DAILY 01/25/22 Previous Rx's Medication Instructions Recorded acetaminophen 500 mg tablet 500 mg PO Q6H PRN pain or fever 06/14/20 (Tylenol Extra Strength) #20 tabs amoxicillin 875 mg-potassium 1 tab PO Q12H 7 days #14 tabs 06/14/20 clavulanate 125 mg tablet (Augmentin) ibuprofen 400 mg tablet 400 mg PO Q6H 7 days #28 tabs 06/14/20 albuterol sulfate 90 mcg/actuation 2 puff inhalation Q4H PRN 06/28/20 aerosol inhaler shortness of breath or wheezing #18 grams prednisone 20 mg tablet 60 mg PO DAILY 5 days #15 tabs 06/28/20 dicyclomine 20 mg tablet 20 mg PO TID PRN abdominal 09/23/20 discomfort #30 tabs famotidine 20 mg tablet (Pepcid) 20 mg PO DAILY PRN abdominal 09/23/20 discomfort #30 tabs ondansetron 4 mg disintegrating 4 mg PO Q8H PRN nausea and 09/23/20 tablet vomiting #20 tabs prednisone 50 mg tablet 50 mg PO DAILY 4 days #4 tabs 01/08/22 ibuprofen 400 mg tablet 400 mg PO Q6H PRN pain #20 tabs 09/05/22 Allergies Allergy/AdvReac Type Severity Reaction Status Date / Time No Known Allergies Allergy Verified 01/25/22 08:53 [No Known Allergies*] FOR[facility]LY [facility] Past Medical History Medical History Asthma Social History Social History Alcohol intake: current Alcohol intake frequency: does not drink Patient Tobacco Use Status: Never used Tobacco Current occupational status: employed Current occupation: The patient works in a school cafeteria, rt hand Physical Exam ED Vital Signs: Vital Signs - 24 hr 09/05/22 16:02 Temperature 97 F Pulse Rate 88 Respiratory Rate 16 Blood Pressure 137/86 Pulse Oximetry 99 Oxygen Delivery Method Room Air BMI result Body Mass Index 42.0 Course Course Course Narrative: RME: 41 yold female presents to the ED for vaginal bleeding and Right suprapubic pain. no rebound tenderness on palpatino. positive for right suprapubic pain. labs ordered. HCG pending Medications Administered Discontinued Medications Generic Name Dose Route Start Last Admin Trade Name Freq PRN Reason Stop Dose Admin Sodium Chloride 1,000 mls @ 999 mls/hr 09/05/22 21:45 09/05/22 23:42 Ns IV 09/05/22 22:45 Infused .Q1H1M TEMITOPE Infusion Ketorolac Tromethamine 30 mg 09/05/22 21:44 09/05/22 22:21 Ketorolac Tromethamine 30 Mg/Ml Vial IVPUSH 09/05/22 21:45 30 mg ONCE ONE Administration Medical Decision Making Lab Data 09/05/22 16:17 09/05/22 16:17 Labs: Lab Results 09/05/22 09/05/22 09/05/22 Range/Units 16:17 16:17 16:17 WBC 5.4 (4.8-10.8) X10*3/uL RBC 4.56 (4.20-5.50) X10*6/uL Hgb 13.3 (12.0-16.0) g/dl Hct 39.5 (37.0-47.0) % MCV 86.6 (80.0-98.0) fL MCH 29.2 (27.0-33.0) pg MCHC 33.7 (31.0-35.0) g/dl RDW 12.3 (11.0-16.0) % Plt Count 220 (160-400) X10*3/uL MPV 8.9 L (9.4-12.3) fL Immature Gran % (Auto) 0.2 (0.0-0.4) % Neut % (Auto) 65.0 (45-73) % Lymph % (Auto) 23.2 (20-40) % [place] % (Auto) 8.8 (2-11) % Eos % (Auto) 2.4 (0-4) % Baso % (Auto) 0.4 (0-2) % Lymph # (Auto) 1.3 (1.2-4.9) X10*3/uL [place] # (Auto) 0.5 (0.1-1.2) X10*3/uL Eos # (Auto) 0.1 (0.0-0.4) X10*3/uL Baso # (Auto) 0.0 (0.0-0.2) X10*3/uL Abs Immat Gran (auto) 0.01 (0.00-0.03) X10*3/uL Absolute Neuts (auto) 3.5 (2.0-8.3) x10*3/uL Absolute Nucleated RBC 0.000 (0.0-0.012) X10*3/uL Nucleated RBC % (auto) 0.0 (0.0-0.2) /100WBC Sodium 141 (135-145) mmol/L Potassium 3.9 (3.3-5.1) mmol/L Chloride 105 (96-108) mmol/L Carbon Dioxide 28 (22-29) mmol/L Anion Gap 12 (12-20) BUN 13 (9-16) mg/dL Creatinine 0.94 (0.5-1.4) mg/dL Estim Creat Clear Calc 89.3 Estimated GFR > 60 Random Glucose 98 (60-115) mg/dL Calcium 9.7 D (8.4-10.2) mg/dL Total Bilirubin 0.3 (0.0-1.0) mg/dL AST 19 (5-31) U/L ALT 18 (0-31) U/L Alkaline Phosphatase 47 (39-117) U/L Total Protein 7.5 (6.5-8.0) g/dL Albumin 4.3 (3.5-5.0) g/dL Beta HCG, Quant < 2 mIU/mL Urine Color PINK Urine Appearance Clear Urine pH 7.5 (5.0-9.0) Ur Specific [place] 1.020 (1.005-1.025) Urine Protein 30 (1+) H (Neg-Trace) mg/dL Urine Glucose (UA) Negative (Negative) mg/dL Urine Ketones Negative (Negative) mg/dL Urine Blood Large (3+) H (Negative) Urine Nitrite Negative (Negative) Ur Leukocyte Esterase Trace H (Negative) Urine RBC >20 H (0-2) /HPF Urine WBC 0-5 (0-5) /HPF Ur Squamous Epith Cells 3-5 (0-2) /HPF Urine Bacteria None Seen (None Seen) Hyaline Casts 0-2 (0-2) /LPF Urine Test (NEGATIVE) 09/05/22 Range/Units 16:17 WBC (4.8-10.8) X10*3/uL RBC (4.20-5.50) X10*6/uL Hgb (12.0-16.0) g/dl Hct (37.0-47.0) % MCV (80.0-98.0) fL MCH (27.0-33.0) pg MCHC (31.0-35.0) g/dl RDW (11.0-16.0) % Plt Count (160-400) X10*3/uL MPV (9.4-12.3) fL Immature Gran % (Auto) (0.0-0.4) % Neut % (Auto) (45-73) % Lymph % (Auto) (20-40) % [place] % (Auto) (2-11) % Eos % (Auto) (0-4) % Baso % (Auto) (0-2) % Lymph # (Auto) (1.2-4.9) X10*3/uL [place] # (Auto) (0.1-1.2) X10*3/uL Eos # (Auto) (0.0-0.4) X10*3/uL Baso # (Auto) (0.0-0.2) X10*3/uL Abs Immat Gran (auto) (0.00-0.03) X10*3/uL Absolute Neuts (auto) (2.0-8.3) x10*3/uL Absolute Nucleated RBC (0.0-0.012) X10*3/uL Nucleated RBC % (auto) (0.0-0.2) /100WBC Sodium (135-145) mmol/L Potassium (3.3-5.1) mmol/L Chloride (96-108) mmol/L Carbon Dioxide (22-29) mmol/L Anion Gap (12-20) BUN (9-16) mg/dL Creatinine (0.5-1.4) mg/dL Estim Creat Clear Calc Estimated GFR Random Glucose (60-115) mg/dL Calcium (8.4-10.2) mg/dL Total Bilirubin (0.0-1.0) mg/dL AST (5-31) U/L ALT (0-31) U/L Alkaline Phosphatase (39-117) U/L Total Protein (6.5-8.0) g/dL Albumin (3.5-5.0) g/dL Beta HCG, Quant mIU/mL Urine Color Urine Appearance Urine pH (5.0-9.0) Ur Specific [place] (1.005-1.025) Urine Protein (Neg-Trace) mg/dL Urine Glucose (UA) (Negative) mg/dL Urine Ketones (Negative) mg/dL Urine Blood (Negative) Urine Nitrite (Negative) Ur Leukocyte Esterase (Negative) Urine RBC (0-2) /HPF Urine WBC (0-5) /HPF Ur Squamous Epith Cells (0-2) /HPF Urine Bacteria (None Seen) Hyaline Casts (0-2) /LPF Urine Test NEGATIVE (NEGATIVE) Discharge Plan Discharge Clinical Impression: Heavy menstrual period Patient Disposition: Home, Self-Care Instructions: Ovarian Cyst (ED), Menorrhagia (ED) Prescriptions: New ibuprofen 400 mg tablet 400 mg PO Q6H PRN (Reason: pain) Qty: 20 0RF No Action acetaminophen [Tylenol Extra Strength] 500 mg tablet 500 mg PO Q6H PRN (Reason: pain or fever) Qty: 20 0RF ibuprofen 400 mg tablet 400 mg PO Q6H 7 Days Qty: 28 0RF amoxicillin-pot clavulanate [Augmentin] 875-125 mg tablet 1 tab PO Q12H 7 Days Qty: 14 0RF albuterol sulfate 90 mcg/actuation HFA aerosol inhaler 2 puff inhalation Q4H PRN (Reason: shortness of breath or wheezing) Qty: 18 0RF prednisone 20 mg tablet 60 mg PO DAILY 5 Days Qty: 15 0RF famotidine [Pepcid] 20 mg tablet 20 mg PO DAILY PRN (Reason: abdominal discomfort) Qty: 30 0RF ondansetron 4 mg tablet,disintegrating 4 mg PO Q8H PRN (Reason: nausea and vomiting) Qty: 20 0RF dicyclomine 20 mg tablet 20 mg PO TID PRN (Reason: abdominal discomfort) Qty: 30 0RF prednisone 50 mg tablet 50 mg PO DAILY 4 Days Qty: 4 0RF ibuprofen 800 mg tablet 800 mg PO TID PRN (Reason: pain) multivitamin Tablet 1 tab PO DAILY Referrals: Bryan Bello MD [Physician] - 09/07/22 Stand Alone Forms: Work/School Release Interventions: ED Discharge Assessment Last Done: 09/05/22 23:42 Discharge Date/Time: 09/05/22 23:43
[2022-09-05 16:23] LABS: MANUAL DIFF FLAG NO
[2022-09-05 16:24] LABS: Basophils Percent Auto 0.4 % (0-2); Eosinophils Absolute Auto 0.1 X10*3/uL (0.0-0.4); Eosinophils Percent Auto 2.4 % (0-4); Hematocrit 39.5 % (37.0-47.0); Hemoglobin 13.3 g/dl (12.0-16.0); Imm Gran Abs Auto 0.01 X10*3/uL (0.00-0.03); Imm Gran Pct Auto 0.2 % (0.0-0.4); Lymphocytes Absolute Auto 1.3 X10*3/uL (1.2-4.9); Lymphocytes Percent Auto 23.2 % (20-40); Mean Corpuscular HGB Conc 33.7 g/dl (31.0-35.0); Mean Corpuscular Hemoglobin 29.2 pg (27.0-33.0); Mean Corpuscular Volume 86.6 fL (80.0-98.0); Mean Platelet Volume 8.9 fL (9.4-12.3); Monocytes Absolute Auto 0.5 X10*3/uL (0.1-1.2); Monocytes Percent Auto 8.8 % (2-11); Neutrophils Absolute Auto 3.5 x10*3/uL (2.0-8.3); Platelet Count 220 X10*3/uL (160-400); Red Blood Count 4.56 X10*6/uL (4.20-5.50); Red Cell Distribution Width 12.3 % (11.0-16.0); White Blood Count 5.4 X10*3/uL (4.8-10.8)
[2022-09-05 16:27] LABS: UPreg QC Valid YES; Urine Pregnancy NEGATIVE (NEGATIVE)
[2022-09-05 16:36] LABS: Appearance Urine Clear; Color Urine PINK; Glucose Urine UA Negative (Negative); Leukocyte Esterase Urine Trace (Negative); Nitrite Urine Negative (Negative); PH 7.5 (5.0-9.0); UMIC TRIGGER UACC YES; Urine Blood Large (3+) (Negative); Urine Ketones Negative (Negative); Urine Protein 30 (1+) mg/dL (Neg-Trace)
[2022-09-05 16:50] LABS: Alanine Aminotransferase 18 U/L (0-31); Albumin Level 4.3 g/dL (3.5-5.0); Alkaline Phosphatase 47 U/L (39-117); Anion Gap 12 (12-20); Aspartate Amino Transferase 19 U/L (5-31); Bilirubin Total 0.3 mg/dL (0.0-1.0); Blood Urea Nitrogen 13 mg/dL (9-16); Calcium 9.7 mg/dL (8.4-10.2); Carbon Dioxide 28 mmol/L (22-29); Chloride 105 mmol/L (96-108); Creatinine Clr Calc Pharmacy 89.3; Estimated Glomerular Filt Rate > 60; Glucose Random 98 mg/dL (60-115); HCG Quantitative < 2 mIU/mL; Potassium 3.9 mmol/L (3.3-5.1); Sodium 141 mmol/L (135-145); Total Protein 7.5 g/dL (6.5-8.0)
[2022-09-05 17:04] LABS: Bacteria Urine None Seen (None Seen); Hyaline Casts Urine 0-2 /LPF (0-2); RBC Urine >20 /HPF (0-2); WBC Urine 0-5 /HPF (0-5)
[2022-09-05 20:00] VITALS: BP 134/89; PULSE 75; RESP 14; TEMP 36.6; O2SAT 99
--- NOTE | 2022-09-05 20:03 | PC.NURSE ---
pt resting comfortably on stretcher at this time. VSS. pt expresses no needs at this time. pt awaiting to be seen by ed provider
--- NOTE | 2022-09-05 21:47 | ED_ITS ---
HPI - Abdominal Pain General Chief Complaint: Abdominal Pain Stated Complaint: Right ovary pain/ vaginal bleeding Time Seen by Provider: 09/05/22 19:52 History of Present Illness HPI narrative: Patient is a 41-year-old female with a history of ovarian cyst. Presented today with having menstrual period and having right-sided abdominal pain. Patient claims her menstruation started on Sunday. It was quite heavy at that time. Subsequently patient noted pain in the right lower quadrant. Never had any abdominal surgery in the past. Mild nausea lot of pain. No coughing or congestion or upper respiratory symptoms. No diaphoresis. Patient is from home. Related Data Home Medications Medication Instructions Recorded Confirmed ibuprofen 800 mg tablet 800 mg PO TID PRN pain 01/25/22 multivitamin 1 tab PO DAILY 01/25/22 Previous Rx's Medication Instructions Recorded acetaminophen 500 mg tablet 500 mg PO Q6H PRN pain or fever 06/14/20 (Tylenol Extra Strength) #20 tabs amoxicillin 875 mg-potassium 1 tab PO Q12H 7 days #14 tabs 06/14/20 clavulanate 125 mg tablet (Augmentin) ibuprofen 400 mg tablet 400 mg PO Q6H 7 days #28 tabs 06/14/20 albuterol sulfate 90 mcg/actuation 2 puff inhalation Q4H PRN 06/28/20 aerosol inhaler shortness of breath or wheezing #18 grams prednisone 20 mg tablet 60 mg PO DAILY 5 days #15 tabs 06/28/20 dicyclomine 20 mg tablet 20 mg PO TID PRN abdominal 09/23/20 discomfort #30 tabs famotidine 20 mg tablet (Pepcid) 20 mg PO DAILY PRN abdominal 09/23/20 discomfort #30 tabs ondansetron 4 mg disintegrating 4 mg PO Q8H PRN nausea and 09/23/20 tablet vomiting #20 tabs prednisone 50 mg tablet 50 mg PO DAILY 4 days #4 tabs 01/08/22 ibuprofen 400 mg tablet 400 mg PO Q6H PRN pain #20 tabs 09/05/22 Allergies Allergy/AdvReac Type Severity Reaction Status Date / Time No Known Allergies Allergy Verified 01/25/22 08:53 [No Known Allergies*] Review of Systems Review of Systems Positive right lower quadrant pain Yes all other systems are reviewed and are negative PMFSH Past Medical History Attestation statement: The following information was validated with the patient. Medical History Asthma Social History Social History Alcohol intake: current Alcohol intake frequency: holidays/special occasions only Patient Tobacco Use Status: Never used Tobacco Advance Directives: No Advance Directives Information Provided: No Current occupational status: employed Current occupation: The patient works in a school cafeteria, rt hand Physical Exam ED Vital Signs: Vital Signs - 24 hr 09/05/22 16:02 09/05/22 20:00 Temperature 97 F 97.8 F Pulse Rate 88 75 Respiratory Rate 16 14 Blood Pressure 137/86 134/89 Pulse Oximetry 99 99 Oxygen Delivery Method Room Air Room Air BMI result Body Mass Index 42.0 Appearance: Alert. Oriented X3. No acute distress. Eyes: Pupils equal, round and reactive to light. ENT: Pharynx normal. Neck: Normal inspection. Neck supple. No lymph nodes noted. No crepitus CVS: Normal heart rate and rhythm. Pulses normal. Normal S1 and S2 Respiratory: No respiratory distress. Breath sounds normal. No Wheezing. No rales Abdomen: Soft and nontender. No rigidity. No distention. good BS x4 Skin: Skin warm and dry. Normal skin color. Normal skin turgor. Extremities: No lower extremity edema. Neurovascular intact to all extremities. No Lacerations. No Rash Neuro: Oriented X 3. No motor deficit. No sensory deficit. Moving all extermities. No slurred speech Medical Decision Making Medical Decision Making MDM Narrative: Patient complaining of vaginal bleeding along with right lower quadrant pain. H er urine showed no signs of infection. Patient's test was negative. No evidence for ectopic . Ultrasound was done. There is no evidence for torsion. CT scan of the abdomen pelvis was done. There is no evidence for kidney stone no evidence for appendicitis. Pelvic exam done. With nurse Jaclyn present. No extraordinary bleeding noted. Patient's hemoglobin is 13. Will discharge patient home follow up on an outpatient basis. Differential Diagnosis Differential Diagnoses: The differential diagnosis associated with the presentation includes Ovarian torsion, appendicitis, ectopic , heavy menstrual periods bleeding, kidney stone, urinary tract infection, pyelonephritis Admission/Observation Consideration of admission/observation: Escalation of care including admission/observation considered Given patient's normal hemoglobin well-appearing no need for admission Lab Data MDM Lab Attestation statement: I reviewed the patient's lab results. 09/05/22 16:17 09/05/22 16:17 Labs: Lab Results 09/05/22 09/05/22 09/05/22 Range/Units 16:17 16:17 16:17 WBC 5.4 (4.8-10.8) X10*3/uL RBC 4.56 (4.20-5.50) X10*6/uL Hgb 13.3 (12.0-16.0) g/dl Hct 39.5 (37.0-47.0) % MCV 86.6 (80.0-98.0) fL MCH 29.2 (27.0-33.0) pg MCHC 33.7 (31.0-35.0) g/dl RDW 12.3 (11.0-16.0) % Plt Count 220 (160-400) X10*3/uL MPV 8.9 L (9.4-12.3) fL Immature Gran % (Auto) 0.2 (0.0-0.4) % Neut % (Auto) 65.0 (45-73) % Lymph % (Auto) 23.2 (20-40) % [place] % (Auto) 8.8 (2-11) % Eos % (Auto) 2.4 (0-4) % Baso % (Auto) 0.4 (0-2) % Lymph # (Auto) 1.3 (1.2-4.9) X10*3/uL [place] # (Auto) 0.5 (0.1-1.2) X10*3/uL Eos # (Auto) 0.1 (0.0-0.4) X10*3/uL Baso # (Auto) 0.0 (0.0-0.2) X10*3/uL Abs Immat Gran (auto) 0.01 (0.00-0.03) X10*3/uL Absolute Neuts (auto) 3.5 (2.0-8.3) x10*3/uL Absolute Nucleated RBC 0.000 (0.0-0.012) X10*3/uL Nucleated RBC % (auto) 0.0 (0.0-0.2) /100WBC Sodium 141 (135-145) mmol/L Potassium 3.9 (3.3-5.1) mmol/L Chloride 105 (96-108) mmol/L Carbon Dioxide 28 (22-29) mmol/L Anion Gap 12 (12-20) BUN 13 (9-16) mg/dL Creatinine 0.94 (0.5-1.4) mg/dL Estim Creat Clear Calc 89.3 Estimated GFR > 60 Random Glucose 98 (60-115) mg/dL Calcium 9.7 D (8.4-10.2) mg/dL Total Bilirubin 0.3 (0.0-1.0) mg/dL AST 19 (5-31) U/L ALT 18 (0-31) U/L Alkaline Phosphatase 47 (39-117) U/L Total Protein 7.5 (6.5-8.0) g/dL Albumin 4.3 (3.5-5.0) g/dL Beta HCG, Quant < 2 mIU/mL Urine Color PINK Urine Appearance Clear Urine pH 7.5 (5.0-9.0) Ur Specific [place] 1.020 (1.005-1.025) Urine Protein 30 (1+) H (Neg-Trace) mg/dL Urine Glucose (UA) Negative (Negative) mg/dL Urine Ketones Negative (Negative) mg/dL Urine Blood Large (3+) H (Negative) Urine Nitrite Negative (Negative) Ur Leukocyte Esterase Trace H (Negative) Urine RBC >20 H (0-2) /HPF Urine WBC 0-5 (0-5) /HPF Ur Squamous Epith Cells 3-5 (0-2) /HPF Urine Bacteria None Seen (None Seen) Hyaline Casts 0-2 (0-2) /LPF Urine Test (NEGATIVE) 09/05/22 Range/Units 16:17 WBC (4.8-10.8) X10*3/uL RBC (4.20-5.50) X10*6/uL Hgb (12.0-16.0) g/dl Hct (37.0-47.0) % MCV (80.0-98.0) fL MCH (27.0-33.0) pg MCHC (31.0-35.0) g/dl RDW (11.0-16.0) % Plt Count (160-400) X10*3/uL MPV (9.4-12.3) fL Immature Gran % (Auto) (0.0-0.4) % Neut % (Auto) (45-73) % Lymph % (Auto) (20-40) % [place] % (Auto) (2-11) % Eos % (Auto) (0-4) % Baso % (Auto) (0-2) % Lymph # (Auto) (1.2-4.9) X10*3/uL [place] # (Auto) (0.1-1.2) X10*3/uL Eos # (Auto) (0.0-0.4) X10*3/uL Baso # (Auto) (0.0-0.2) X10*3/uL Abs Immat Gran (auto) (0.00-0.03) X10*3/uL Absolute Neuts (auto) (2.0-8.3) x10*3/uL Absolute Nucleated RBC (0.0-0.012) X10*3/uL Nucleated RBC % (auto) (0.0-0.2) /100WBC Sodium (135-145) mmol/L Potassium (3.3-5.1) mmol/L Chloride (96-108) mmol/L Carbon Dioxide (22-29) mmol/L Anion Gap (12-20) BUN (9-16) mg/dL Creatinine (0.5-1.4) mg/dL Estim Creat Clear Calc Estimated GFR Random Glucose (60-115) mg/dL Calcium (8.4-10.2) mg/dL Total Bilirubin (0.0-1.0) mg/dL AST (5-31) U/L ALT (0-31) U/L Alkaline Phosphatase (39-117) U/L Total Protein (6.5-8.0) g/dL Albumin (3.5-5.0) g/dL Beta HCG, Quant mIU/mL Urine Color Urine Appearance Urine pH (5.0-9.0) Ur Specific [place] (1.005-1.025) Urine Protein (Neg-Trace) mg/dL Urine Glucose (UA) (Negative) mg/dL Urine Ketones (Negative) mg/dL Urine Blood (Negative) Urine Nitrite (Negative) Ur Leukocyte Esterase (Negative) Urine RBC (0-2) /HPF Urine WBC (0-5) /HPF Ur Squamous Epith Cells (0-2) /HPF Urine Bacteria (None Seen) Hyaline Casts (0-2) /LPF Urine Test NEGATIVE (NEGATIVE) External Record Review External record reviewed: Inpatient record Medications Administered Discontinued Medications Generic Name Dose Route Start Last Admin Trade Name Freq PRN Reason Stop Dose Admin Sodium Chloride 1,000 mls @ 999 mls/hr 09/05/22 21:45 09/05/22 22:21 Ns IV 09/05/22 22:45 999 mls/hr .Q1H1M TEMITOPE Administration Ketorolac Tromethamine 30 mg 09/05/22 21:44 09/05/22 22:21 Ketorolac Tromethamine 30 Mg/Ml Vial IVPUSH 09/05/22 21:45 30 mg ONCE ONE Administration Discharge Plan Discharge Clinical Impression: Heavy menstrual period Patient Disposition: Home, Self-Care Instructions: Ovarian Cyst (ED), Menorrhagia (ED) Prescriptions: New ibuprofen 400 mg tablet 400 mg PO Q6H PRN (Reason: pain) Qty: 20 0RF No Action acetaminophen [Tylenol Extra Strength] 500 mg tablet 500 mg PO Q6H PRN (Reason: pain or fever) Qty: 20 0RF ibuprofen 400 mg tablet 400 mg PO Q6H 7 Days Qty: 28 0RF amoxicillin-pot clavulanate [Augmentin] 875-125 mg tablet 1 tab PO Q12H 7 Days Qty: 14 0RF albuterol sulfate 90 mcg/actuation HFA aerosol inhaler 2 puff inhalation Q4H PRN (Reason: shortness of breath or wheezing) Qty: 18 0RF prednisone 20 mg tablet 60 mg PO DAILY 5 Days Qty: 15 0RF famotidine [Pepcid] 20 mg tablet 20 mg PO DAILY PRN (Reason: abdominal discomfort) Qty: 30 0RF ondansetron 4 mg tablet,disintegrating 4 mg PO Q8H PRN (Reason: nausea and vomiting) Qty: 20 0RF dicyclomine 20 mg tablet 20 mg PO TID PRN (Reason: abdominal discomfort) Qty: 30 0RF prednisone 50 mg tablet 50 mg PO DAILY 4 Days Qty: 4 0RF ibuprofen 800 mg tablet 800 mg PO TID PRN (Reason: pain) multivitamin Tablet 1 tab PO DAILY Referrals: Bryan Bello MD [Physician] - 09/07/22
[2022-09-05] MEDS: 0.9 % Sodium Chloride 1,000 ML 999 ML IV (22:21)
[2022-09-05] MEDS: Ketorolac Tromethamine 30 MG/ML VIAL IVPUSH (22:21)
[2022-09-05 23:38] VITALS: BP 136/83; PULSE 68; RESP 18; O2SAT 98
--- NOTE | 2022-09-05 23:40 | PC.NURSE ---
late entry- this rn placed iv flushed well. pt medicated according to oct.
--- NOTE | 2022-09-05 23:40 | PC.NURSE ---
late entry- this rn present at bedside during pelic exam with dr lilly. pt compliant at this time. tolerated well
--- NOTE | 2022-09-05 23:41 | PC.NURSE ---
iv removed at this time. pt reports0/10 pain skin pwd. pt ambulatory at discharge. pt provided with work note and discharge packet. pt verbalized understanding of discharge plan
== END 2022-09-05 23:43 | disposition home or self-care (01) ==
PROVIDERS: Physician Assistant; Emergency Provider Emergency Medicine Emergency Medical Services
DX: N92.0 Excessive and frequent menstruation with regular cycle (principal); R10.31 Right lower quadrant pain; Z79.899 Other long term (current) drug therapy
CPT/HCPCS: 36415; 74176; 76830; 76856; 80053; 81001; 81025; 84702; 85025; 93975; 96361; 96374; 99284; J1885

== ENCOUNTER 2022-10-16 13:40 | Outpatient (REF) | payer MEDICAID, SELFPAY ==
[2022-10-20 02:04] LABS: HPV mRNA E6/E7 rflx Not Detected (Not Detected)
== END 2022-10-16 13:41 | disposition home or self-care (01) ==
LOC: HO.LNP 13:40
PROVIDERS: PCP Internal Medicine; Visit Provider Obstetrics & Gynecology
DX: N93.9 Abnormal uterine and vaginal bleeding, unspecified (principal); Z12.4 Encounter for screening for malignant neoplasm of cervix
CPT/HCPCS: 0353U; 84443; 84702; 85027; 87624; 88142; 99202

== ENCOUNTER 2022-10-16 14:34 | Outpatient (REF) | payer MEDICAID, SELFPAY ==
[2022-10-16 14:51] LABS: Hematocrit 37.4 % (37.0-47.0); Hemoglobin 12.6 g/dl (12.0-16.0); Mean Corpuscular HGB Conc 33.7 g/dl (31.0-35.0); Mean Corpuscular Hemoglobin 29.6 pg (27.0-33.0); Mean Corpuscular Volume 87.8 fL (80.0-98.0); Mean Platelet Volume 8.9 fL (9.4-12.3); Platelet Count 224 X10*3/uL (160-400); Red Blood Count 4.26 X10*6/uL (4.20-5.50); Red Cell Distribution Width 12.4 % (11.0-16.0); White Blood Count 5.1 X10*3/uL (4.8-10.8)
[2022-10-16 15:55] LABS: HCG Quantitative < 2 mIU/mL; TSH reflex Free T4 1.38 uIU/mL (0.32-4.0)
[2022-10-16 18:00] LABS: CT PCR NOT DETECTED (Not Detect.); NG PCR NOT DETECTED (Not Detect.)
== END 2022-10-16 14:35 | disposition home or self-care (01) ==
LOC: HO.LAB 14:34
PROVIDERS: PCP Internal Medicine; Visit Provider Obstetrics & Gynecology
DX: N93.9 Abnormal uterine and vaginal bleeding, unspecified (principal); Z20.2 Contact with and (suspected) exposure to infections with a predominantly sexual mode of transmission
CPT/HCPCS: 0353U; 84443; 84702; 85027

== ENCOUNTER 2022-10-30 14:53 | Outpatient (REF) | payer MEDICAID, SELFPAY ==
--- NOTE | ~2022-10-30 | US_ITS ---
EXAMINATION: US PELVIS CLINICAL INFORMATION: Abnormal uterine bleeding. COMPARISON: CT abdomen and pelvis 09/05/2022, ultrasound pelvis 09/05/2022. TECHNIQUE: Ultrasound of the pelvis is performed using both transabdominal and transvaginal transducers along with Doppler. Transvaginal imaging is performed due to inadequate visualization transabdominally. FINDINGS: Uterus: The uterus is anteverted and measures 10.8 x 5.2 x 5.7 cm. The previously seen fundal fibroid is not imaged on the current study. This is probably secondary to the fact that the bladder was not full on the transabdominal images. Nabothian cysts are present in the cervix. The double wall endometrial thickness is 0.5 mm. Adnexa: Both ovaries are visualized. There is normal color flow to the adnexa. There is no ovarian torsion. There is no pelvic ascites or fluid collection. Right ovary measures 3.3 x 2.1 x 2.2 cm for a volume of 8 mL and has a 7 x 4 x 4 mm echogenic focus similar to prior. Left ovary measures 2.5 x 1.5 x 1.6 cm for a volume of 3.1 mL and appears unremarkable. US/US pelvic and transvaginal IMPRESSION: No significant abnormality is seen. The previously seen uterine fibroid is not identified on the current exam due to technical reasons.
== END 2022-10-30 14:54 | disposition home or self-care (01) ==
LOC: HO.US 14:53
PROVIDERS: PCP Internal Medicine; Visit Provider Obstetrics & Gynecology
DX: N93.9 Abnormal uterine and vaginal bleeding, unspecified (principal)
CPT/HCPCS: 76830; 76856

== ENCOUNTER 2022-11-29 15:17 | Outpatient (REF) | payer MEDICAID, SELFPAY ==
--- NOTE | ~2022-11-29 | MM_ITS ---
EXAMINATION: MM SCREENING DIGITAL BREAST TOMOSYNTHESIS, BILATERAL CLINICAL INFORMATION: Screening. Asymptomatic. The lifetime risk of breast cancer based on the Tyrer-Cuzick Model is 8%. COMPARISON: Mammography: None TECHNIQUE: Digital breast tomosynthesis is performed in both the craniocaudal and mediolateral oblique views along with computer-aided detection (CAD). Synthesized 2D images are generated from the tomosynthesis. FINDINGS: There are scattered areas of fibroglandular density (ACR BI-RADS breast composition Category b). There are no significant masses, abnormal calcifications, or other abnormalities. MM/MM tomosynthesis screening BI IMPRESSION: No mammographic evidence of malignancy. ASSESSMENT: BI-RADS 1: Negative RECOMMENDATION: Routine annual mammography screening. This patient's information was entered into a reminder system with a target due date for their next mammogram.
== END 2022-11-29 15:18 | disposition home or self-care (01) ==
LOC: HO.MAMMO 15:17
PROVIDERS: Visit Provider Obstetrics & Gynecology
DX: Z12.31 Encounter for screening mammogram for malignant neoplasm of breast (principal)
CPT/HCPCS: 77063; 77067

== ENCOUNTER 2022-12-05 14:02 | Outpatient (REF) | payer MEDICAID, SELFPAY | END 2022-12-05 14:03 | disposition home or self-care (01) | LOC: HO.XRAY 14:02 | PROVIDERS: Absent Provider Registered Nurse; PCP Registered Nurse; Visit Provider Obstetrics & Gynecology | DX: N93.9 Abnormal uterine and vaginal bleeding, unspecified (principal); B37.31 Acute candidiasis of vulva and vagina; M54.50 Low back pain, unspecified; Z32.02 Encounter for pregnancy test, result negative | CPT/HCPCS: 58100; 81025; 99212 ==

== ENCOUNTER 2022-12-05 14:53 | Outpatient (REF) | payer MEDICAID, SELFPAY ==
[2022-12-05 17:34] LABS: CT PCR NOT DETECTED (Not Detect.); NG PCR NOT DETECTED (Not Detect.)
[2022-12-06 08:54] LABS: BV Int Neg Control Negative (Negative); BV Int Pos Control Positive (Positive)
== END 2022-12-05 14:54 | disposition home or self-care (01) ==
LOC: HO.LNP 14:53
PROVIDERS: Visit Provider Obstetrics & Gynecology
DX: N93.9 Abnormal uterine and vaginal bleeding, unspecified (principal); B37.31 Acute candidiasis of vulva and vagina
CPT/HCPCS: 0353U; 87480; 87510; 87660; 88305

== ENCOUNTER 2022-12-14 14:32 | Outpatient (REF) | payer MEDICAID, SELFPAY ==
--- NOTE | ~2022-12-14 | XR_ITS ---
EXAMINATION: XR LUMBOSACRAL SPINE CLINICAL INFORMATION: Low back pain. COMPARISON: CT abdomen/pelvis 09/05/2022. TECHNIQUE: Three views of the lumbosacral spine. FINDINGS: No evidence of acute compression deformity or traumatic subluxation. Mild intervertebral disc height loss and facet arthropathy at L5-S1. SI joints are symmetric. No significant paraspinal soft tissue abnormality. XR/XR lumbar spine 2-3V IMPRESSION: 1. No acute compression deformity or traumatic subluxation. 2. Mild lumbar spondylosis at L5-S1.
== END 2022-12-14 14:33 | disposition home or self-care (01) ==
LOC: HO.HHCX 14:32
PROVIDERS: Visit Provider Registered Nurse
DX: M54.50 Low back pain, unspecified (principal)
CPT/HCPCS: 72100

== ENCOUNTER 2022-12-18 13:58 | Outpatient (REF) | payer MEDICAID, SELFPAY ==
[2022-12-20 04:50] LABS: Syphilis Screen Nonreactive (Nonreactive)
[2022-12-20 07:23] LABS: HBsAGNum1 0.33 S/CO (0.00-0.99); HIV AB/AG Nonreactive (Nonreactive); HIV Num 1 0.05 S/CO (0.00-0.99); Hepatitis B Surface Antigen Negative (Negative); ~HepC Num1 0.18 S/CO (0.00-0.79); ~Hepatitis C Antibody Nonreactive (Nonreactive)
== END 2022-12-18 13:59 | disposition home or self-care (01) ==
LOC: HO.LAB 13:58
PROVIDERS: Visit Provider Obstetrics & Gynecology
DX: N76.0 Acute vaginitis (principal); B96.89 Other specified bacterial agents as the cause of diseases classified elsewhere
CPT/HCPCS: 36415; 86780; 86803; 87340; 87389

== ENCOUNTER → 2022-12-26 13:02 | Outpatient (BNVA) | payer MEDICAID, SELFPAY | PROVIDERS: PCP Registered Nurse; Visit Provider Obstetrics & Gynecology | DX: N93.9 Abnormal uterine and vaginal bleeding, unspecified (principal) | CPT/HCPCS: 99212 ==

== ENCOUNTER 2023-05-09 10:06 | Outpatient (REF) | payer MEDICAID, SELFPAY ==
--- NOTE | ~2023-05-09 | XR_ITS ---
Indication: Pain EXAMINATION: Lumbar spine and left hip. 3 views of the lumbar sacral spine are compared to sagittal imaging from CT of 09/05/2022. No acute finding. The vertebral heights are fairly well maintained. Some degeneration is noted L5-S1 similar to previous. No listhesis or compression injury is seen. Mild scoliosis convex right apex at L4. Some degeneration in the posterior elements in the lower lumbar region. 2 views of the left hip demonstrate the femoral head contour to be smooth. There is degenerative change along the greater trochanter. The joint spaces fairly well-preserved. Some likely degeneration in the inferior left SI joint. XR/XR lumbar spine 2-3V IMPRESSION: No acute finding. Lumbar sacral spine left hip. Some degenerative changes are noted here
--- NOTE | ~2023-05-09 | XR_ITS ---
Indication: Pain EXAMINATION: Lumbar spine and left hip. 3 views of the lumbar sacral spine are compared to sagittal imaging from CT of 09/05/2022. No acute finding. The vertebral heights are fairly well maintained. Some degeneration is noted L5-S1 similar to previous. No listhesis or compression injury is seen. Mild scoliosis convex right apex at L4. Some degeneration in the posterior elements in the lower lumbar region. 2 views of the left hip demonstrate the femoral head contour to be smooth. There is degenerative change along the greater trochanter. The joint spaces fairly well-preserved. Some likely degeneration in the inferior left SI joint. XR/XR hip LT min 2V IMPRESSION: No acute finding. Lumbar sacral spine left hip. Some degenerative changes are noted here
== END 2023-05-09 10:07 | disposition home or self-care (01) ==
LOC: HO.HHCX 10:06
PROVIDERS: Visit Provider Registered Nurse
DX: M54.50 Low back pain, unspecified (principal); Z13.89 Encounter for screening for other disorder
CPT/HCPCS: 72100; 73502

== ENCOUNTER 2023-06-04 15:27 | Outpatient (AMB) | payer MEDICAID, SELFPAY ==
--- NOTE | 2023-06-04 15:30 | A.OFFVIS_ITS ---
Intake Vital Signs 06/04/23 15:32 Height 5 ft 2 in Weight 227 lb BMI 41.5 BP 130/90 H Pulse 83 Pulse Source Pulse Oximeter Pulse Oximetry (%) 100 Oxygen Delivery Method Room Air Intake Visit Reasons: ENP-SAGE Intake Note: Pt presents today ? SAGE . Allergies No Known Allergies [No Known Allergies*] Allergy (Verified 06/04/23 15:34) HPI HPI Comments History of Present Illness Details 42 y/o female patient presents for new i n-person visit to manage sleep apnea. She was diagnosed with SAGE three years ago, and tried CPAP. She was suffering anxiety, and could not use CPAP enough and she returned it. Pt gained about 12 lb since the last sleep study. She experiences more symptoms, gasping arousals, non refreshing sleep and daytime sleepiness. She wants to try CPAP again. Sleep questionnaire: Have you ever been diagnosed with a sleep disorder? Yes, SAGE. Have you ever had a sleep study in the past? Yes, three years ago. Have you ever been treated for a sleep disorder? Yes, CPAP but only used short term. Do you take medications for a sleep disorder? No. Do you snore? Yes. Do you wake up gasping at night? Yes. Do you have episodes of apneas? Yes. If yes, are they witnessed? Yes. Do you have episodes of nocturnal chest pain or dyspnea? Yes. Do you have difficulty initiating sleep? No. Do you have difficulty maintaining sleep? No. Do you wake up tired? Yes. Do you have headaches upon awakening? Yes. Do you wake up with dry mouth or throat? Yes. Do you have GERD? No. Do you have nocturia? No. Do you have nocturnal leg cramps? No. Do you have symptoms of restless legs? Yes, sometimes. Do you act out your dreams? No. Sleep hygiene questionnaire: What is your usual sleep routine? Usual bedtime is at 9-10 pm; Usual wake up time is at 5 am. Do you take naps? No. Is your sleep environment cool, dark, and quiet? Yes. Do you exercise? No. Do you take caffeine or other stimulants? Coffee in the morning. Do you use electronics in bed? Yes. What is your work schedule? 6 am to 2 pm. Hypersomnolence questionnaire: Do you have daytime tiredness or fatigue? Yes. Do you easily fall asleep when inactive? Yes, sometimes. Have you ever had episodes of sudden weakness? No. Have you ever had episodes of sudden weakness associated with strong emotions? No. PFSH Medical History Carpal tunnel syndrome on both sides Asthma Surgical History H/O: H/O tubal ligation Social History Alcohol intake: current Alcohol intake frequency: does not drink Patient Tobacco Use Status: Never used Tobacco Current occupational status: employed Current occupation: The patient works in a [employer] rt hand Female Reproductive History Menstrual Age of Menarche: 12 Review of Systems Const All systems reviewed & are unremarkable except as noted in HPI and below ENT Reports Normal hearing present Neuro Reports Normal hearing present Physical Exam Vital Signs: Last Vital Signs Pulse 83 06/04/23 15:32 BP 130/90 H 06/04/23 15:32 Pulse Ox 100 06/04/23 15:32 Oxygen Delivery Method Room Air 06/04/23 15:32 BMI result Body Mass Index 41.5 Const General: cooperative and tired appearing Nutritional Appearance: obese Orientation/consciousness: patient oriented x3 Limitations: language barrier (Ugandan speaking only) Neck Neck: Yes full ROM and Yes supple Resp Effort & Inspection: normal respiratory effort and able to speak in complete sentences Neuro General: patient oriented x3, gait normal, moves all extremities and no focal motor deficits Cranial nerves: Yes Bilaterally intact EOM present, Yes Normal facial strength present, Yes Midline tongue present, Yes Symmetric palate elevation present, Yes Normal hearing present, Yes Ability to bilaterally rotate head present and Yes Ability to bilaterally elevate shoulders present Cognition (Neuro): normal cognition Gait exam (Neuro): Normal gait present Motor exam (neuro): 5/5 motor strength present throughout, Pronator motor function not present and no tremor noted Psych Appearance: grossly normal Mental Status: mental status grossly normal Speech and movement: Normal speech and movement present Affect: normal affect Attitude: cooperative Assessment & Plan Assessment & Plan (1) Restless leg syndrome: Code(s): G25.81 - Restless legs syndrome (2) Obesity, Class III, BMI 40-49.9 (morbid obesity): Code(s): E66.01 - Morbid (severe) obesity due to excess calories (3) Excessive daytime sleepiness: Code(s): G47.19 - Other hypersomnia (4) Sleep apnea: Comment: Has hx of sleep apnea, not tolerated to CPAP. Code(s): G47.30 - Sleep apnea, unspecified Plan Pt is advised to undergo in lab sleep study to assess for sleep apnea. Will f/u with pt after study to discuss results and appropriate treatment opt ions. Sleep hygiene education provided. Pt to call with any worsening concerns or questions. Orders: Orders RT PSG in-lab sleep study Today E66.01 - Morbid (severe) obesity due to excess calories, G25.81 - Restless legs syndrome, G47.19 - Other hypersomnia, G47.30 - Sleep apnea, unspecified Coding Level of Care Code New Pt Level 3 (71315) Diagnoses Restless leg syndrome G25.81 Obesity, Class III, BMI 40-49.9 (morbid obesity) E66.01 Excessive daytime sleepiness G47.19 Sleep apnea G47.30
[2023-06-04 15:32] VITALS: BP 130/90; PULSE 83; O2SAT 100; BMI 41.5
== END 2023-06-04 15:53 | disposition home or self-care (01) ==
PROVIDERS: PCP Registered Nurse; Visit Provider Nurse Practitioner Family
DX: G25.81 Restless legs syndrome (principal); E66.01 Morbid (severe) obesity due to excess calories; G47.19 Other hypersomnia; G47.30 Sleep apnea, unspecified
CPT/HCPCS: 99203

== ENCOUNTER → 2023-06-04 15:27 | Outpatient (BNVA) | payer MEDICAID, SELFPAY | PROVIDERS: PCP Registered Nurse; Visit Provider Nurse Practitioner Family | DX: G47.30 Sleep apnea, unspecified (principal); G25.81 Restless legs syndrome; E66.01 Morbid (severe) obesity due to excess calories; Z68.41 Body mass index [BMI] 40.0-44.9, adult | CPT/HCPCS: 99212 ==

== ENCOUNTER 2023-06-06 18:54 | Outpatient (REF) | payer MEDICAID, SELFPAY ==
[2023-06-07 11:42] LABS: CT PCR NOT DETECTED (Not Detect.); NG PCR NOT DETECTED (Not Detect.)
[2023-06-07 13:55] LABS: BV Int Neg Control Negative (Negative); BV Int Pos Control Positive (Positive)
== END 2023-06-06 18:55 | disposition home or self-care (01) ==
LOC: HO.HHCLNP 18:54
PROVIDERS: Visit Provider Emergency Medicine
DX: R30.0 Dysuria (principal)
CPT/HCPCS: 0353U; 87480; 87510; 87660

== ENCOUNTER 2023-06-21 06:37 | Outpatient (REF) | payer MEDICAID, SELFPAY ==
[2023-06-21 07:03] LABS: MANUAL DIFF FLAG NO
[2023-06-21 07:41] LABS: Basophils Percent Auto 0.5 % (0-2); Eosinophils Absolute Auto 0.1 X10*3/uL (0.0-0.4); Eosinophils Percent Auto 2.7 % (0-4); Hematocrit 37.1 % (37.0-47.0); Hemoglobin 12.4 g/dl (12.0-16.0); Lymphocytes Absolute Auto 0.9 X10*3/uL (1.2-4.9); Lymphocytes Percent Auto 20.3 % (20-40); Mean Corpuscular HGB Conc 33.4 g/dl (31.0-35.0); Mean Corpuscular Hemoglobin 29.7 pg (27.0-33.0); Mean Platelet Volume 9.3 fL (9.4-12.3); Monocytes Absolute Auto 0.4 X10*3/uL (0.1-1.2); Monocytes Percent Auto 9.1 % (2-11); Neutrophils Percent Auto 67.4 % (45-73); Platelet Count 218 X10*3/uL (160-400); Red Blood Count 4.17 X10*6/uL (4.20-5.50); Red Cell Distribution Width 12.5 % (11.0-16.0); White Blood Count 4.4 X10*3/uL (4.8-10.8)
[2023-06-21 08:04] LABS: Cholesterol 162 mg/dL (<200); HDL Cholesterol 47 mg/dL (>40); Iron 97 mcg/dL (30-160); LDL Cholesterol Calculated 86 mg/dL (<100); Percent Iron Saturation 29 % (15-50); Total Iron Binding Capacity 330 mcg/dL (228-428); Triglycerides 149 mg/dL (<150); Unsaturated Iron Binding 233 ug/dL
[2023-06-21 08:24] LABS: HBc Num1 0.09 S/CO (0.00-0.79); HBsAGNum1 0.27 S/CO (0.00-0.99); Hepatitis B Core Antibody Nonreactive (Nonreactive); Hepatitis B Surface Antigen Negative (Negative); ~Hepatitis B Surface Antibody NONREACTIVE (Nonreactive)
[2023-06-21 08:30] LABS: Vitamin D 25-OH Total 26.4 ng/mL (>30)
[2023-06-21 08:39] LABS: Estimated Average Glucose 114 mg/dL; Hemoglobin A1c % 5.6 % (<6.0)
[2023-06-21 08:56] LABS: Ferritin 37 ng/mL (10-250)
== END 2023-06-21 06:38 | disposition home or self-care (01) ==
LOC: HO.LAB 06:37
PROVIDERS: PCP Student in an Organized Health Care Education/Training Program; Visit Provider Student in an Organized Health Care Education/Training Program
DX: Z00.00 Encounter for general adult medical examination without abnormal findings (principal)
CPT/HCPCS: 36415; 80061; 82306; 82728; 83036; 83540; 85025; 86704; 86706; 87340

== ENCOUNTER → 2023-07-13 20:30 | Outpatient (REF) | payer MEDICAID, SELFPAY | LOC: HO.SL 20:30 | PROVIDERS: PCP Student in an Organized Health Care Education/Training Program; Visit Provider Nurse Practitioner Family | DX: G47.33 Obstructive sleep apnea (adult) (pediatric) (principal); G47.19 Other hypersomnia; E66.01 Morbid (severe) obesity due to excess calories; G25.81 Restless legs syndrome | CPT/HCPCS: 95810 ==

== ENCOUNTER → 2023-07-14 02:19 | Outpatient (BNV) | payer MEDICAID, SELFPAY | PROVIDERS: PCP Student in an Organized Health Care Education/Training Program; Visit Provider Psychiatry & Neurology Neurology | DX: G47.33 Obstructive sleep apnea (adult) (pediatric) (principal) | CPT/HCPCS: 95810 ==

== ENCOUNTER 2023-07-26 17:00 | Outpatient (RCR) | payer MEDICAID, SELFPAY | END 2023-09-11 14:44 | disposition home or self-care (01) | LOC: HO.PT 17:00 | PROVIDERS: PCP Registered Nurse; Visit Provider Emergency Medicine | DX: S39.012D Strain of muscle, fascia and tendon of lower back, subsequent encounter (principal) | CPT/HCPCS: 97012; 97110; 97140; 97161 ==

== ENCOUNTER 2023-09-19 10:08 | Outpatient (REF) | payer MEDICAID, SELFPAY | END 2023-09-19 10:09 | disposition home or self-care (01) | LOC: HO.HOSX 10:08 | PROVIDERS: Visit Provider Physician Assistant | DX: Z13.89 Encounter for screening for other disorder (principal) ==

== ENCOUNTER 2023-10-05 14:19 | Outpatient (AMB) | payer MEDICAID, SELFPAY ==
--- NOTE | 2023-10-05 14:31 | MHC.OFFVIS ---
Intake Vital Signs 10/05/23 14:35 Height 5 ft 2 in Weight 231 lb 8 oz BMI 42.3 BP 132/80 Blood Pressure Location Lt brachial Position Sitting Pulse 68 Pulse Source Pulse Oximeter Pulse Oximetry (%) 98 Oxygen Delivery Method Room Air Intake Visit Reasons: 4month follow up SAGE-CONF Intake Note: Patient presents for 4 month f/u for SAGE. Allergies No Known Allergies [No Known Allergies*] Allergy (Verified 10/05/23 14:34) HPI HPI Comments History of Present Illness Details 42 y/o female patient presents for follow up of sleep study. The PSG sleep study result was significant for a moderate degree of sleep apnea. The AHI was 19/hr and oxygen radha was 85%. The REM sleep was not recorded which may underestimate the severity of sleep apnea. The APAP [id number] ordered. However, her insurance changed and she was told that [facility] will resubmit the CPAP order with new insurance information. It was beginning of August, but she still did not have the CPAP. She continues to have gasping arousals, non refreshing sleep and daytime sleepiness. [facility] Medical History Carpal tunnel syndrome on both sides Asthma Surgical History H/O: H/O tubal ligation Social History Alcohol intake: current Alcohol intake frequency: does not drink Patient Tobacco Use Status: Never used Tobacco Current occupational status: employed Current occupation: The patient works in a school cafeteria, rt hand Female Reproductive History Menstrual Age of Menarche: 12 Review of Systems Const All systems reviewed & are unremarkable except as noted in HPI and below ENT Reports Normal hearing present Neuro Reports Normal hearing present Physical Exam Vital Signs: Last Vital Signs Pulse 68 10/05/23 14:35 BP 132/80 10/05/23 14:35 Pulse Ox 98 10/05/23 14:35 Oxygen Delivery Method Room Air 10/05/23 14:35 BMI result Body Mass Index 42.3 Const General: cooperative and tired appearing Nutritional Appearance: obese Orientation/consciousness: patient oriented x3 Limitations: language barrier (Belarusian speaking only) Neck Neck: Yes full ROM and Yes supple Resp Effort & Inspection: normal respiratory effort and able to speak in complete sentences Neuro General: patient oriented x3, gait normal, moves all extremities and no focal motor deficits Cranial nerves: Yes Bilaterally intact EOM present, Yes Normal facial strength present, Yes Midline tongue present, Yes Symmetric palate elevation present, Yes Normal hearing present, Yes Ability to bilaterally rotate head present and Yes Ability to bilaterally elevate shoulders present Cognition (Neuro): normal cognition Gait exam (Neuro): Normal gait present Motor exam (neuro): 5/5 motor strength present throughout, Pronator motor function not present and no tremor noted Psych Appearance: grossly normal Mental Status: mental status grossly normal Speech and movement: Normal speech and movement present Affect: normal affect Attitude: cooperative Assessment & Plan Assessment & Plan (1) Sleep apnea: Comment: Moderate degree of sleep apnea. The AHI was 19/hr and oxygen radha was 85%. Code(s): G47.30 - Sleep apnea, unspecified Plan Resent new CPAP prescription with new insurance information. Stressed compliance, use CPAP nightly and more than 4 hrs. Continues to practice good sleep hygiene and wt reduction advised. Coding Level of Care Code Est Pt Level 3 (42568) Diagnoses Sleep apnea G47.30
[2023-10-05 14:35] VITALS: BP 132/80; PULSE 68; O2SAT 98; BMI 42.3
== END 2023-10-05 14:57 | disposition home or self-care (01) ==
PROVIDERS: PCP Registered Nurse; Visit Provider Nurse Practitioner Family
DX: G47.30 Sleep apnea, unspecified (principal)
CPT/HCPCS: 99213

== ENCOUNTER → 2023-10-05 14:19 | Outpatient (BNVA) | payer OTHER, SELFPAY | PROVIDERS: PCP Registered Nurse; Visit Provider Nurse Practitioner Family | DX: G47.30 Sleep apnea, unspecified (principal) | CPT/HCPCS: 99212 ==

== ENCOUNTER 2023-10-10 14:12 | Outpatient (REF) | payer OTHER, SELFPAY ==
--- NOTE | ~2023-10-10 | US_ITS ---
EXAMINATION: US SOFT TISSUE HEAD/NECK CLINICAL INFORMATION: Patient with difficulty swallowing in oropharynx, rule out any neck masses. COMPARISON: Thyroid ultrasound 06/16/2019. TECHNIQUE: Linear transducer sánchez-scale and color Doppler examination of the neck. FINDINGS: The technologist reports thyroid appears within normal limits without nodules, however no measurements of the thyroid are submitted. Cervical lymph nodes are identified as follows: Right: Level not labeled: Node #1: 1.5 x 0.6 x 0.4 cm. Normal fatty hilum. Level not labeled: Node #2: 1.1 x 0.6 x 0.9 cm. Normal fatty hilum. Left: None demonstrated. No airam calcification, cystic change, focus of increased echogenicity or focal vascularity in the airam cortex is identified. US/US soft tiss head and/or neck IMPRESSION: No suspicious mass identified. Normal-appearing right cervical lymph nodes.
== END 2023-10-10 14:13 | disposition home or self-care (01) ==
LOC: HO.US 14:12
PROVIDERS: PCP Student in an Organized Health Care Education/Training Program; Visit Provider Student in an Organized Health Care Education/Training Program
DX: R13.12 Dysphagia, oropharyngeal phase (principal)
CPT/HCPCS: 76536

== ENCOUNTER 2023-11-27 16:57 | Outpatient (REF) | payer OTHER, SELFPAY | END 2023-11-27 16:58 | disposition home or self-care (01) | LOC: HO.MRI 16:57 | PROVIDERS: PCP Registered Nurse; Visit Provider Emergency Medicine | DX: Z13.89 Encounter for screening for other disorder (principal) ==

== ENCOUNTER 2024-04-08 12:26 | Outpatient (REF) | payer OTHER, SELFPAY ==
[2024-04-09 13:40] LABS: Bacterial Vaginosis PCR NEGATIVE (Negative); Candida Group PCR DETECTED (Not Detect); Candida glab krusei PCR DETECTED (Not Detect); Trichomonas vaginalis PCR NOT DETECTED (Not Detect)
[2024-04-09 14:10] LABS: CT PCR NOT DETECTED (Not Detect.); NG PCR NOT DETECTED (Not Detect.)
== END 2024-04-08 12:27 | disposition home or self-care (01) ==
LOC: HO.HHCLNP 12:26
PROVIDERS: Visit Provider Emergency Medicine
DX: R30.0 Dysuria (principal)
CPT/HCPCS: 0352U; 87086; 87491; 87591

== ENCOUNTER 2024-04-17 09:56 | Outpatient (REF) | payer OTHER, SELFPAY ==
[2024-04-17 11:40] LABS: Estimated Average Glucose 117 mg/dL; Hemoglobin A1c % 5.7 % (<6.0)
[2024-04-17 11:41] LABS: Glucose Fasting 106 mg/dL (60-99)
== END 2024-04-17 09:57 | disposition home or self-care (01) ==
LOC: HO.HHCL 09:56
PROVIDERS: Visit Provider Emergency Medicine
DX: N89.8 Other specified noninflammatory disorders of vagina (principal); Z13.1 Encounter for screening for diabetes mellitus
CPT/HCPCS: 36415; 82947; 83036

== ENCOUNTER 2024-08-09 09:59 | Outpatient (REF) | payer MEDICAID, SELFPAY ==
--- NOTE | ~2024-08-09 | MM_ITS ---
EXAMINATION: MM SCREENING DIGITAL BREAST TOMOSYNTHESIS, BILATERAL CLINICAL INFORMATION: Screening. Asymptomatic. COMPARISON: Mammography: Comparison is made with available priors TECHNIQUE: Digital breast mammography with tomosynthesis is performed in both the craniocaudal and mediolateral oblique views along with computer-aided detection (CAD). FINDINGS: There are scattered areas of fibroglandular density (ACR BI-RADS breast composition Category b). There are no significant masses, abnormal calcifications, or other abnormalities. MM/MM tomosynthesis screening BI IMPRESSION: No mammographic evidence of malignancy. ASSESSMENT: BI-RADS BI-RADS 1 - Negative RECOMMENDATION: Routine annual mammography screening. 1 year F/U This examination should not preclude the clinical evaluation of a suspicious palpable abnormality. This patient's information was entered into a reminder system with a target due date for their next mammogram. Electronically signed by: Dominique Gallardo DO 08/17/2024 05:48 PM ANTONIA
== END 2024-08-09 10:00 | disposition home or self-care (01) ==
LOC: HO.MAMMO 09:59
PROVIDERS: PCP Student in an Organized Health Care Education/Training Program; Visit Provider Student in an Organized Health Care Education/Training Program
DX: Z12.31 Encounter for screening mammogram for malignant neoplasm of breast (principal)
CPT/HCPCS: 77063; 77067

== ENCOUNTER → 2024-08-09 10:15 | Outpatient (BNV) | payer MEDICAID, SELFPAY | PROVIDERS: PCP Student in an Organized Health Care Education/Training Program; Visit Provider Internal Medicine | DX: Z12.31 Encounter for screening mammogram for malignant neoplasm of breast (principal) | CPT/HCPCS: 77063; 77067 ==

== ENCOUNTER 2024-08-11 10:24 | Outpatient (REF) | payer MEDICAID, SELFPAY ==
[2024-08-11 11:08] LABS: MANUAL DIFF FLAG NO
[2024-08-11 11:41] LABS: Basophils Percent Auto 0.5 % (0-2); Eosinophils Absolute Auto 0.1 X10*3/uL (0.0-0.4); Hematocrit 37.7 % (37.0-47.0); Hemoglobin 12.9 g/dl (12.0-16.0); Imm Gran Abs Auto 0.01 X10*3/uL (0.00-0.03); Imm Gran Pct Auto 0.3 % (0.0-0.4); Lymphocytes Absolute Auto 0.9 X10*3/uL (1.2-4.9); Mean Corpuscular HGB Conc 34.2 g/dl (31.0-35.0); Mean Corpuscular Hemoglobin 29.9 pg (27.0-33.0); Mean Corpuscular Volume 87.5 fL (80.0-98.0); Mean Platelet Volume 9.1 fL (9.4-12.3); Monocytes Absolute Auto 0.4 X10*3/uL (0.1-1.2); Monocytes Percent Auto 10.6 % (2-11); Neutrophils Absolute Auto 2.5 x10*3/uL (2.0-8.3); Neutrophils Percent Auto 62.6 % (45-73); Platelet Count 233 X10*3/uL (160-400); Red Blood Count 4.31 X10*6/uL (4.20-5.50)
[2024-08-11 14:20] LABS: Iron 78 mcg/dL (30-160); Percent Iron Saturation 25 % (15-50); Total Iron Binding Capacity 309 mcg/dL (228-428); Unsaturated Iron Binding 231 ug/dL
[2024-08-11 14:29] LABS: Ferritin 50 ng/mL (10-250)
== END 2024-08-11 10:25 | disposition home or self-care (01) ==
LOC: HO.HHCL 10:24
PROVIDERS: Visit Provider Student in an Organized Health Care Education/Training Program
DX: D50.9 Iron deficiency anemia, unspecified (principal); D64.9 Anemia, unspecified
CPT/HCPCS: 36415; 82728; 83540; 85025; 85027

== ENCOUNTER 2024-08-16 10:09 | Emergency (ER) | payer MEDICAID, SELFPAY ==
--- NOTE | ~2024-08-16 | CT_ITS ---
CLINICAL HISTORY: R flank pain CT abdomen and pelvis without contrast Comparison: CT/REG/AZ/SR - CT ABDOMEN PELVIS WO IV CON - 09/05/22 22:01 EST Findings: No consolidation or effusion. The liver is hypodense and mildly heterogeneous. Remaining abdominal organs are unremarkable. There are no calcified gallstones. Mild colonic diverticulosis without diverticulitis. No bowel edema or dilatation. Pelvic contents unremarkable. Normal appendix. The bones are intact. IMPRESSION: 1. No urolithiasis or hydronephrosis. 2. Fatty infiltration of the liver. This document has been electronically signed by: Vangie Cordova MD on 08/16/2024 14:47:59
[2024-08-16 10:16] VITALS: BP 156/87; PULSE 73; RESP 19; TEMP 36.6; O2SAT 98; BMI 42.1
--- NOTE | 2024-08-16 10:57 | PC.NURSE ---
patient was able to void, provided urine sample. patient is taking AZO pills. patient bladder scanned after void showed 16ml
[2024-08-16 11:25] VITALS: BP 119/87; PULSE 73; RESP 17; TEMP 36.8; O2SAT 96
--- NOTE | 2024-08-16 11:59 | ED_ITS ---
HPI - Female Genitourinary General Chief complaint: Urogenital-Female Stated complaint: urine retention? Time Seen by Provider: 08/16/24 11:06 Source: patient, RN notes reviewed and science interpreter Mode of arrival: ambulatory Limitations: language barrier History of Present Illness ED Provider: Toña Hargrove PA-C HPI Narrative: This is a 43-year-old English-speaking female, with a past medical history of asthma, carpal tunnel, who presents emergency department complaints of dysuria since yesterday. She also reports urinary frequency and urgency. States that she is only urinating in small amounts. MD elicited complaint: UTI Onset (ago): day(s) Urinary symptoms: Dysuria, Urgency, Frequency, Hematuria, Difficulty Urinating and Flank Pain Associated symptoms: denies other symptoms Related Data Previous Rx's ?Medication ?Instructions ?Recorded terconazole 0.8 % vaginal cream 1 appful vaginal BEDTIME 3 days 12/05/22 #20 grams cefuroxime axetil 500 mg tablet 500 mg PO BID 7 days #14 tabs 08/16/24 Allergies Allergy/AdvReac Type Severity Reaction Status Date / Time No Known Allergies Allergy Verified 08/16/24 10:19 [No Known Allergies*] Review of Systems 2 Review of Systems: Yes all other systems are reviewed and are negative Constitutional: Constitutional: Reports as per HPI [facility] Past Medical History Medical History Carpal tunnel syndrome on both sides Asthma Surgical History H/O: H/O tubal ligation Social History Social History Alcohol intake: current Alcohol intake frequency: does not drink Patient Tobacco Use Status: Never used Tobacco Current occupational status: employed Current occupation: The patient works in a school cafeteria, rt hand Physical Exam 2 Vital Signs: Vital Signs: Last Vital Signs Temp 98.2 F 08/16/24 15:41 Pulse 73 08/16/24 15:41 Resp 17 08/16/24 15:41 BP 119/87 08/16/24 15:41 Pulse Ox 96 08/16/24 15:41 O2 Del Method Room Air 08/16/24 15:41 BMI result Body Mass Index 42.1 Const: General: cooperative, comfortable and no acute distress O rientation/consciousness: patient oriented x3 Limitations: no limitations HEENT: Head: Yes normal to inspection, Yes normocephalic and Yes atraumatic Ears: hearing grossly normal bilaterally General nose exam: Normal external nose present Face and sinus: Yes normal facial exam Mouth: Normal oral and palatal mucosa present, oropharynx normal and moist mucous membranes Throat: Yes posterior oropharynx normal Eyes: General: appearance normal, both eyes and all related structures E yelids: Yes eyelids normal Conjunctivae: conjunctivae normal Sclerae: s clerae normal Pupils: Equal, round and reactive pupils present EOM: EOMs intact bilaterally Neck: Neck: Yes normal visual inspection, Yes full ROM and Yes no lymphadenopathy Lymphatic: no lymphadenopathy noted Chest: Chest palpation & inspection: normal inspection of the chest Resp: Effort & Inspection: normal respiratory effort and able to speak in complete sentences Auscultation: clear to auscultation bilaterally, no crackles, no rales, no rhonchi and no wheezes Cardio: Rate: regular rate Rhythm: regular rhythm Heart sounds: S1 normal heart sound present and S2 normal heart sound present GI: Other: abdomen is soft, nontender, nondistended. Inspection: Yes normal to inspection Back/Spine/Pelvis: Other: very mild cva ttp Skin: General skin exam: no rashes or lesions noted Trauma: no lacerations or abrasions Wounds: no wounds Neuro: General: patient oriented x3 and moves all extremities Cranial nerves: Yes Equal, round and reactive pupils present Extrem: General: Yes normal to inspection Right upper extremity: normal to inspection Left upper extremity: normal to inspection Right lower extremity: normal to inspection Left lower extremity: normal to inspection Course Reevaluation(s) Reevaluation #1: CT scan returns, no evidence of obstructive pathology. Will treat as a urinary tract infection with cefuroxime. Also discussed glucosuria in urine, she is prediabetic. She has no abnormal vaginal discharge or bleeding. Discussed workup with patient. Given strict return precautions. She understands agrees with plan. Patient stable for discharge. Time: 15:05 Medical Decision Making Medical Decision Making MDM Narrative: This is a 43-year-old female who presents emergency department with complaints of dysuria, urinary frequency, urgency since yesterday. She has been taking azo [id number] which has provided her with some relief. On arrival, patient well-appearing, under no acute distress. She is afebrile. Abdomen is soft and nontender, she does report very mild right-sided CVA tenderness. Urine was obtained, positive for hematuria, nitrites, leuk esterases, rbc's, and wbc's. 2+ urine bacteria seen. She also has urine yeast present. Given findings, abdominal CT was ordered to rule out obstructive pathology. Plan: UA, labs, CT abdomen and pelvis Differential Diagnosis Differential Diagnoses: The differential diagnosis associated with the presentation includes Acute cystitis, pyelonephritis, nephrolithiasis, STI-unlikely Lab Data MDM Lab Attestation statement: I reviewed the patient's lab results. No leukocytosis, stable H&H, chemistry with no significant electrolyte derangement. No evidence of GUILLERMO. Urine with proteinuria, 08/16/24 12:21 08/16/24 12:21 Labs: Lab Results 08/16/24 08/16/24 Range/Units 11:50 12:21 WBC 5.5 (4.8-10.8) X10*3/uL RBC 4.57 (4.20-5.50) X10*6/uL Hgb 13.5 (12.0-16.0) g/dl Hct 39.8 (37.0-47.0) % MCV 87.1 (80.0-98.0) fL MCH 29.5 (27.0-33.0) pg MCHC 33.9 (31.0-35.0) g/dl RDW 12.3 (11.0-16.0) % Plt Count 223 (160-400) X10*3/uL MPV 8.7 L (9.4-12.3) fL Immature Gran % (Auto) 0.4 (0.0-0.4) % Neut % (Auto) 68.6 (45-73) % Lymph % (Auto) 20.7 (20-40) % [place] % (Auto) 7.5 (2-11) % Eos % (Auto) 2.4 (0-4) % Baso % (Auto) 0.4 (0-2) % Lymph # (Auto) 1.1 L (1.2-4.9) X10*3/uL [place] # (Auto) 0.4 (0.1-1.2) X10*3/uL Eos # (Auto) 0.1 (0.0-0.4) X10*3/uL Baso # (Auto) 0.0 (0.0-0.2) X10*3/uL Abs Immat Gran (auto) 0.02 (0.00-0.03) X10*3/uL Absolute Neuts (auto) 3.8 (2.0-8.3) x10*3/uL Absolute Nucleated RBC 0.000 (0.0-0.012) X10*3/uL Nucleated RBC % (auto) 0.0 (0.0-0.2) /100WBC Sodium 139 (135-145) mmol/L Potassium 4.4 (3.3-5.1) mmol/L Chloride 108 (96-108) mmol/L Carbon Dioxide 27 (22-29) mmol/L Anion Gap 8 L (12-20) BUN 15 (9-16) mg/dL Creatinine 0.84 (0.5-1.4) mg/dL Estim Creat Clear Calc 97.8 Estimated GFR > 60 Random Glucose 96 (60-115) mg/dL Calcium 9.4 (8.4-10.2) mg/dL Total Bilirubin 0.3 (0.0-1.0) mg/dL Direct Bilirubin 0.1 (0.0-0.5) mg/dL AST 18 (5-31) U/L ALT 17 (0-31) U/L Alkaline Phosphatase 45 (39-117) U/L Total Protein 7.7 (6.5-8.0) g/dL Albumin 4.1 (3.5-5.0) g/dL Urine Color [place] Urine Appearance Hazy Urine pH 5.0 (5.0-9.0) Ur Specific [place] 1.025 (1.005-1.025) Urine Protein 100 (2+) H (Neg-Trace) mg/dL Urine Glucose (UA) 250 H (Negative) mg/dL Urine Ketones Trace (Negative) mg/dL Urine Blood Moderate (2+) H (Negative) Urine Nitrite Positive H (Negative) Ur Leukocyte Esterase Moderate (2+) H (Negative) Urine RBC >20 H (0-2) /HPF Urine WBC >50 H (0-5) /HPF Ur Squamous Epith Cells 6-10 (0-2) /HPF Urine Bacteria 2+ (None Seen) Hyaline Casts 0-2 (0-2) /LPF Urine Yeast Present Urine Test NEGATIVE (NEGATIVE) Radiology Impression Discussion of test interpretation with radiology: I have reviewed the radiologist's reading. External Record Review External record reviewed: Inpatient record, Office record, Outpatient record, Prior outpatient labs, Prior outpatient radiology, Primary care record and Outside ED record Discharge Plan Discharge Clinical Impression: UTI (urinary tract infection) Patient Disposition: Home, Self-Care Instructions: Urinary Tract Infection in Women (ED) Additional Instructions: You were seen in the emergency department due to a urinary tract infection. Please take prescribed antibiotic as directed. Finish the entire course even if your symptoms improve. Drink plenty of fluids get plenty of rest. Your CT does not show any kidney stones. If any new or worsening symptoms occur including but not limited to worsening symptoms, inability to urinate, fevers not responding to Tylenol and or Motrin, please seek emergent care. Prescriptions: New cefuroxime axetil 500 mg tablet 500 mg PO BID 7 Days Qty: 14 0RF No Action terconazole 0.8 % cream 1 appful vaginal BEDTIME 3 Days Qty: 20 0RF Interventions: ED Discharge Assessment Last Done: 08/16/24 15:41 Discharge Date/Time: 08/16/24 15:42 Print Language: English
[2024-08-16 12:00] LABS: Appearance Urine Hazy; Glucose Urine UA 250 mg/dL (Negative); Leukocyte Esterase Urine Moderate (2+) (Negative); Nitrite Urine Positive (Negative); Specific Gravity - Urine 1.025 (1.005-1.025); UMIC TRIGGER UACC YES; Urine Blood Moderate (2+) (Negative); Urine Ketones Trace mg/dL (Negative); Urine Protein 100 (2+) mg/dL (Neg-Trace)
[2024-08-16 12:05] LABS: Color Urine Orange
[2024-08-16 12:10] LABS: UPreg QC Valid YES; Urine Pregnancy NEGATIVE (NEGATIVE)
[2024-08-16 12:26] LABS: MANUAL DIFF FLAG NO
[2024-08-16 12:29] LABS: Basophils Percent Auto 0.4 % (0-2); Eosinophils Absolute Auto 0.1 X10*3/uL (0.0-0.4); Eosinophils Percent Auto 2.4 % (0-4); Hematocrit 39.8 % (37.0-47.0); Hemoglobin 13.5 g/dl (12.0-16.0); Imm Gran Abs Auto 0.02 X10*3/uL (0.00-0.03); Imm Gran Pct Auto 0.4 % (0.0-0.4); Lymphocytes Absolute Auto 1.1 X10*3/uL (1.2-4.9); Lymphocytes Percent Auto 20.7 % (20-40); Mean Corpuscular HGB Conc 33.9 g/dl (31.0-35.0); Mean Corpuscular Hemoglobin 29.5 pg (27.0-33.0); Mean Corpuscular Volume 87.1 fL (80.0-98.0); Mean Platelet Volume 8.7 fL (9.4-12.3); Monocytes Absolute Auto 0.4 X10*3/uL (0.1-1.2); Monocytes Percent Auto 7.5 % (2-11); Neutrophils Absolute Auto 3.8 x10*3/uL (2.0-8.3); Neutrophils Percent Auto 68.6 % (45-73); Platelet Count 223 X10*3/uL (160-400); Red Blood Count 4.57 X10*6/uL (4.20-5.50); Red Cell Distribution Width 12.3 % (11.0-16.0); White Blood Count 5.5 X10*3/uL (4.8-10.8)
[2024-08-16 12:30] LABS: Bacteria Urine 2+ (None Seen); Hyaline Casts Urine 0-2 /LPF (0-2); RBC Urine >20 /HPF (0-2); UACC Culture Trigger YES; WBC Urine >50 /HPF (0-5)
[2024-08-16 12:53] LABS: Alanine Aminotransferase 17 U/L (0-31); Albumin Level 4.1 g/dL (3.5-5.0); Alkaline Phosphatase 45 U/L (39-117); Anion Gap 8 (12-20); Aspartate Amino Transferase 18 U/L (5-31); Bilirubin Direct 0.1 mg/dL (0.0-0.5); Bilirubin Total 0.3 mg/dL (0.0-1.0); Blood Urea Nitrogen 15 mg/dL (9-16); Calcium 9.4 mg/dL (8.4-10.2); Carbon Dioxide 27 mmol/L (22-29); Chloride 108 mmol/L (96-108); Creatinine Clr Calc Pharmacy 97.8; Estimated Glomerular Filt Rate > 60; Glucose Random 96 mg/dL (60-115); Potassium 4.4 mmol/L (3.3-5.1); Sodium 139 mmol/L (135-145); Total Protein 7.7 g/dL (6.5-8.0)
[2024-08-16 15:41] VITALS: BP 119/87; PULSE 73; RESP 17; TEMP 36.8; O2SAT 96
== END 2024-08-16 15:42 | disposition home or self-care (01) ==
PROVIDERS: Physician Assistant Medical; Emergency Provider Emergency Medicine; PCP Student in an Organized Health Care Education/Training Program
DX: N39.0 Urinary tract infection, site not specified (principal); R10.9 Unspecified abdominal pain
CPT/HCPCS: 36415; 51798; 74176; 80048; 80076; 81001; 81003; 81025; 85025; 87086; 99284

== ENCOUNTER → 2024-08-16 12:09 | Outpatient (BNV) | payer MEDICAID, SELFPAY | PROVIDERS: Emergency Provider Emergency Medicine; PCP Student in an Organized Health Care Education/Training Program; Visit Provider Radiology Diagnostic Radiology | DX: R10.11 Right upper quadrant pain (principal) | CPT/HCPCS: 74176 ==

== ENCOUNTER 2024-09-01 09:52 | Outpatient (AMB) | payer MEDICAID, SELFPAY ==
--- NOTE | 2024-09-01 10:02 | A.SPINEOV_ITS ---
Vital Signs 09/01/24 10:06 Height 5 ft 2 in Weight 222 lb 8 oz BMI 40.7 Intake Visit Reasons: LBP Intake Note: Ms. Zuniga is here today c/o low back pain. Correctional Officer Lieutenant Required: Yes Correctional Officer Lieutenant Name: Tablet Allergies No Known Allergies [No Known Allergies*] Allergy (Verified 09/01/24 10:07) Physical Exam Vital Signs: BMI result Body Mass Index 40.7 Assessment & Plan Assessment & Plan (1) Lumbago: Code(s): M54.50 - Low back pain, unspecified Category: Medical Plan Dear Dr. De Souza, Thank you for referring Elisa to our office today. She is a pleasant 53 year old female who comes in today for evaluation of 1 year of low back pain. She denies any known initial inciting incident. She reports associated bilateral leg numbness which only occurs when she is lying down and rolling over to her side. When she does this movement she feels numbness from her low back down to her bilateral feet. Throughout the day she has no numbness, just low back pain. She denies any shooting pains into her lower extremities, and states that her axial low back pain is her main concern. When asked to point to where pain as she starts her hands in the small of her back in moves them out laterally towards the sides. She denies any burning or tingling associated with her pain. She has attempted physical therapy in an effort to mitigate this pain, she also has been taking ibuprofen and occasional Flexeril. She denies any trouble with balance, dexterity, walking, or strength. She denies any issues with bowel/bladder incontinence. She has not yet been evaluated by pain management/physiatry, has not attempted cortisone injections, has not in acupuncture, and has not attempted respiratory care instructor. PMH: Bilateral carpal tunnel syndrome, restless legs syndrome, trochanteric bursitis of right hip, obesity. Social hx: The patient does not smoke, reports no substance use. Medications: See [email or web address] list. Allergies: NKDA. Physical exam: The patient has 5/5 strength in her upper and lower extremities. She ambulates well and rises from a seated position without difficulty. She is able to climb onto the exam table without significant issue. Her gait is nonantalgic and non spastic. She has no significant sensational deficits on exam. Her reflexes are 2+ intact. (-) Cox's, (-) clonus, (-) bilateral straight leg raise, (-) Babinski's bilaterally. Imaging review: MRI of the thoracic spine completed at [facility] in 2023 show evidence of syrinx at T8 measuring approximately 10 mm in length. There is also syrinx shown at T1-2 which is smaller in overall length and diameter. On localizer view there is no evidence of significant chiari malformation based on limited views. No evidence of significant spinal cord impingement or T2 signal change. MRI of the Lumbar spine completed in 2023 shows disc herniation at L5-S1 causing some central canal effacement and moderate-severe compression of the left sided S1 nerve. Impression: Elisa is a pleasant 43-year-old female who comes in today with a chief complaint of low back pain and intermittent numbness only with lying down and turning in a specific direction. She denies any myelopathic symptoms; she has no issues with dexterity, no issues with persistent sensational changes, no issues with bowel/bladder, no issues with balance or walking. Because her primary complaint is axial low back pain, and her MRI of the lumbar spine really only shows the paracentral disc herniation described above, I would like to send her for a set of flexion/extension x-rays to ensure there is no instability. I will review these, her lumbar MRI, and her thoracic MRI showing the syrinx development with the attending neurosurgeon Dr. Vásquez later this week. I will call the patient to update her on our surgical recommendations. Tentatively I do not believe she needs surgery for this issue right away, I think she is asymptomatic from the syrinx seen in her imaging, and may benefit simply from cortisone injections with a L5-S1 level to help mitigate some of her pain. I will update this note if Dr. Vásquez has any further recommendations after we review this case. Thank you for allowing us to care for your patient. The total time spent with this visit with this patient was 45 minutes reviewing history, physical exam, MRI lumbar and thoracic imaging review, and implementation of treatment plan or further diagnostic testing Dirk Vásquez MD,PhD [facility] Orders: Orders XR lumbar spine 4V min Today M54.50 - Low back pain, unspecified Coding Level of Care Code New Pt Level 5 (34456) Diagnoses Lumbago M54.50
[2024-09-01 10:06] VITALS: BMI 40.7
--- OUTSIDE RECORDS SUMMARY | 2024-09-01 14:22 | XMS_ITS | Encounter Summary ---
Author Organization [employer] Address [address] [facility] 7 [place] [address] Care Team Providers Care Electric Screw Driver Operator Name Role Phone Sheree Nixon MD Primary Care Pro vider Reason for Visit * Reason Onset Date Comments Request For Order(s) 12/20/2023 Encounter Details Date Type Department Care Team ([facility] st Contact Info) Description 12/20/2023 Telephone [facility] MEDICINE [address] [place] [address] Sheree Nixon MD [address] [place] [address] Request For Order(s) Social History Tobacco Use Types Packs/Day Years Used Date Smoking Tobacco: Never Passive Smoke Exposure: Never Smokeless Tobacco: Never Alcohol Use Standard Drinks/Week Comments Never 0 (1 standard drink = 0.6 oz pur e alcohol) Depression Answer Date Recorded Patient Health Questionnaire-9 Score 2 10/25/2022 Housing Stability Answer Date Recorded What is your housing situation today? I have isabella grossman 05/21/[address] you li ve. Do you have problems with any of the following? None of the above 05/21/2023 Food Insecurity Answer Date Recorded Within the past 12 months, y ou worried that your food would run out before you got money to buy more: Never True 05/21/2023 Within the past 12 months,th e food you bought just didn't last and you didn't have enough money to get more: Never True Transportation Answer Date Recorded In the past 12 months, has l ack of transportation kept you from medical appts, meetings, work or from getting things needed for daily living? No 05/21/2023 Utilities Answer Date Recorded In the past 12 months, has t he electric, gas, oil or water company threatened to shut off services in your home? No 05/21/2023 Depression Answer Date Recorded Patient Health Questionnaire-2 Score 0 10/25/2022 Comments Unknown Sex and Gender Information Value Date Recorded Sex Assigned at Female 06/05/2022 10:31 AM EDT Legal Sex Female 10:31 AM EDT Gender Identity Female 06/05/2022 10:31 AM EDT Sexual Orientation Straight 05/28/2023 6: 29 PM EDT documented as of this encounter Miscellaneous Notes * Telephone Encounter - Terri Vegas - 12/20/2023 11:32 AM EDT Tc from shahana with [facility] states will need a new MRI order. States due to DX, order has to be MRI Thoracic Spine without contrast to be faxed to [phone]. Needs new order as soon as possible, pt is scheduled for 12/21 at 11 AM. Any questions, contact shahana at [phone] documented in this encounter Plan of Treatment Not on file documented as of this encounter Visit Diagnoses Not on filedocumented in this encounter Additional Health Concerns Assessment Noted Time PHQ-9 Depression Total Score: 2 10/26/19 23 1:54 PM EDT documented as of this encounter Care Teams Electric Screw Driver Operator Relationship Specialty Start Date End Date Sheree Nixon MD [address] [place] [phone] PCP - General Internal Medicine 04/26/23 documented as of this encounter
--- OUTSIDE RECORDS SUMMARY | 2024-09-01 14:22 | XMS_ITS | Encounter Summary ---
Author Organization [employer] Address [address] [facility] [address] [address] 7[address] [place] [address] Care Team Providers Care Rn Concurrent Review Name Role Phone Sheree Nixon MD Primary Care Pro vider Encounter Details Date Type Department Care Team (Late st Contact Info) Description 08/16/2024 Orders Only GENERIC EXTERNAL DATA DEPARTMENT Provider, Generic External Data Social History Tobacco Use Types Packs/Day Years Used Date Smoking Tobacco: Never Passive Smoke Exposure: Never Smokeless Tobacco: Never Alcohol Use Standard Drinks/Week Comments Never 0 (1 standard drink = 0.6 oz pur e alcohol) Depression Answer Date Recorded Patient Health Questionnaire-9 Score 0 07/02/2024 Patient Health Questionnaire-9 Score 0 07/02/2024 Last PHQ-9: Questionnaire Data Not on file 1 09/01/2023 Housing Stability Answer Date Recorded What is [...] Date Recorded Patient Health Questionnaire-2 Score 0 07/02/2024 Comments Unknown Sex and Gender Information Value Date Recorded Sex Assigned at Female 06/05/2022 10:31 AM EDT Legal Sex Female 10:31 AM EDT Gender Identity Female 06/05/2022 10:31 AM EDT Sexual Orientation Straight 05/28/2023 6: 29 PM EDT documented as of this encounter Plan of Treatment Not on file documented as of this encounter Procedures Procedure Name Priority Date/Time Associated Diagnosis Comments CT ABDOMEN PELVIS WO CONTRAST Routine 08/16/2024 2:47 PM EST CBC WITH AUTO DIFFERENTIAL Routine 08/16/2024 12:21 PM EST HEPATIC FUNCTION PANEL Routine 08/16/2024 12:21 PM EST BASIC METABOLIC PANEL Routine 08/16/2024 12:21 PM EST URINALYSIS, COMPLETE, WITH REFLEX TO CULTURE Routine 08/16/2024 11:50 AM EST HCG, QL, URINE Routine 08/16/2024 11:50 AM EST CULTURE, URINE, ROUTINE Routine 08/16/2024 12:00 AM EST documented in this encounter Results * CT Abdomen Pelvis w/o Contrast (08/16/2024 2:47 PM EST) Anatomical Region Laterality Modality Body, Pelvis, Abdomen Computed T omography 08/16/2024 2:47 PM EST Narrative 08/16/2024 2:49 PM EST ? [facility] ?[address] ?[place] [address] ? CT Scan Report ? Signed ? Patient: Efrain,Lesley ?MR#: [id number] ?? 96 ? : 1980 ?Acct:[id number] ? Age/Sex: 43 / F ?ADM Date: 01/11/25 ? Loc: HO.ED ? Attending Dr: ? Ordering Physician: Toña Hargrove ?? Date of Service: 08/16/24 ?? Procedure(s): CT abdomen pelvis wo IV con ?? Accession Number(s): [id number] ? cc: Toña Hargrove; Sheree Nixon MD ? Report Number: ?? [id number]: Total DLP = ??797.00 mGy-cm ? CLINICAL HISTORY: R flank pain ? CT abdomen and pelvis without contrast ? Comparison: CT/REG/NM/SR - CT ABDOMEN PELVIS WO IV CON - 09/05/22 22:01 EST ? Findings: ?? No consolidation or effusion. ? The liver is hypodense and mildly heterogeneous. Remaining abdominal ?? organs are unremarkable. There are no calcified gallstones. ?? Mild colonic diverticulosis without diverticulitis. No bowel edema or ?? dilatation. ? Pelvic contents unremarkable. Normal appendix. ?? The bones are intact. ? IMPRESSION: ?? 1. No urolithiasis or hydronephrosis. ?? 2. Fatty infiltration of the liver. ? This document has been electronically signed by: Vangie Cordova MD on ?? 08/16/2024 14:47:59 ? Dictated By: ?Vangie Cordova MD ? Signed By: ?<Electronically signed by Vangie Cordova MD in OV> ? 08/16/24 1448 ? DD/ 46 ? TD/TT: 08/16/241446 ? Supervisor Sample Preparation: ? Procedure Note David, Image - 08/16/[address] [place] [address] [address] Scan Report Signed Patient: Elisa Zuniga MMR#: [id number] 96 : 1980Acct:[id number] Age/Sex: 43 / FADM Date: 08/16/24 Loc: HO.ED Attending Dr: Ordering Physician: Toña Hargrove Date of Service: 08/16/24 Procedure(s): CT abdomen pelvis wo IV con Accession Number(s): [id number] cc: Toña Hargrove; Sheree Nixon MD Report Number: [id number]: Total DLP = 797.00 mGy-cm CLINICAL HISTORY: R flank pain CT abdomen and pelvis without contrast Comparison: CT/REG/NM/SR - CT ABDOMEN PELVIS WO IV CON - 09/05/22 22:01 EST Findings: No consolidation or effusion. The liver is hypodense and mildly heterogeneous. Remaining abdominal organs are unremarkable. There are no calcified gallstones. Mild colonic diverticulosis without diverticulitis. No bowel edema or dilatation. Pelvic contents unremarkable. Normal appendix. The bones are intact. IMPRESSION: 1. No urolithiasis or hydronephrosis. 2. Fatty infiltration of the liver. This document has been electronically signed by: Vangie Cordova MD on 08/16/2024 14:47:59 Dictated By: Vangie Cordova MD Signed By: <Electronically signed by Vangie Cordova MD in OV> 08/16/24 1448 DD/ 1447 TD/TT: 08/16/24 144 Supervisor Sample Preparation: [facility] External Provider IMG CT PROCEDURES Edited Result - Final * (ABNORMAL) Basic Metabolic Panel (08/16/2024 12:21 PM EST) Sodium 139 135 - 145 mmol/L [facility] Potassium 4.4 3.3 - 5.1 mmol/L [facility] Chloride 108 96 - 108 mmol/L [facility] Carbon Dioxide 27 22 - 29 mmol/L [facility] Anion Gap 8(L) 12 - 20 [facility] Urea Nitrogen (BUN) 15 9 - 16 mg/dL [facility] Creatinine, Serum 0.84 0.5 - 1.4 mg/dL [facility] Creatinine Clr Calc Pharmacy 97.8 [facility] Comment:Provided height and weight: 157.48 cm,104.326 kg.eGFR (calculated from the MDRD study equation) and eCrCl(calculated from the Cockcroft-Gault equation) are based ondifferent parameters and may not yield comparable results.If eCrCl result is absurd, please check patient'sheight/weight. Estimated Glomerular Filt Rate >60 [facility] Comment:Chronic Kidney Disea se: Estimated GFR < 60 mL/min/1.13n1Zddiqy Kidney Disease: Estimated GFR < 15 mL/min/1.73m2 Glucose 96 60 - 115 mg/dL [facility] Calcium 9.4 8.4 - 10.2 mg/dL [facility] 08/16/2024 12:2 1 PM EST 08/16/2024 12:24 PM EST us Generic External Data Provider LAB BLOOD ORDERAB LES Final Result Performing Organization Address [facility] Co de Phone Number [facility] [address] [place] [phone] * Hepatic Function Panel (08/16/2024 12:21 PM EST) Bilirubin, Total 0.3 0.0 - 1.0 mg/dL [facility] Bilirubin, Direct 0.1 0.0 - 0.5 mg/dL [facility] Aspartate Amino Transferase 18 5 - 31 U/L [facility] Alanine Aminotransferase 17 0 - 31 U/L [facility] Total Protein 7.7 6.5 - 8.0 g/dL [facility] Albumin Level 4.1 3.5 - 5.0 g/dL [facility] Alkaline Phosphatase 45 39 - 117 U/L [facility] 08/16/2024 12:2 1 PM EST 08/16/2024 12:24 PM EST us Generic External Data Provider LAB BLOOD ORDERAB LES Final Result Performing Organization Address [facility] Co de Phone Number [facility] [address] [place] [phone] * (ABNORMAL) CBC auto differential (08/16/2024 12:21 PM EST) White Blood Count 5.5 4.8 - 10.8 X10*3/uL [facility] Red Blood Count 4.57 4.20 - 5.50 X10*6/uL [facility] Hemoglobin 13.5 12.0 - 16.0 g/dl [facility] Hematocrit 39.8 37.0 - 47.0 % [facility] Mean Corpuscular Volume 87.1 80.0 - 98.0 fL [facility] Mean Corpuscular Hemoglobin 29.5 27.0 - 33.0 pg [facility] Mean Corpuscular HGB Conc 33.9 31.0 - 35.0 g/dl [facility] Red Cell Distribution Width 12.3 11.0 - 16.0 % [facility] Platelet Count 223 160 - 400 X10*3/uL [facility] Mean Platelet Volume 8.7(L) 9.4 - 12.3 fL [facility] Neutrophils Percent Auto 68.6 45 - 73 % [facility] Imm Gran Pct Auto 0.4 0.0 - 0.4 % [facility] Lymphocytes Percent Auto 20.7 20 - 40 % [facility] Monocytes Percent Auto 7.5 2 - 11 % [facility] Eosinophils Percent Auto 2.4 0 - 4 % [facility] Basophils Percent Auto 0.4 0 - 2 % [facility] NRBC Pct Auto 0.0 0.0 - 0.2 /100WBC [facility] Neutrophils Absolute Auto 3.8 2.0 - 8.3 x10*3/uL [facility] Imm Gran Abs Auto 0.02 0.00 - 0.03 X10*3/uL [facility] Lymphocytes Absolute Auto 1.1(L) 1.2 - 4.9 X10*3/uL [facility] Monocytes Absolute Auto 0.4 0.1 - 1.2 X10*3/uL [facility] Eosinophils Absolute Auto 0.1 0.0 - 0.4 X10*3/uL [facility] Basophils Absolute Auto 0.0 0.0 - 0.2 X10*3/uL [facility] NRBC Abs Auto 0.000 0.0 - 0.012 X10*3/uL [facility] 08/16/2024 12:2 1 PM EST 08/16/2024 12:24 PM EST us Generic External Data Provider LAB BLOOD ORDERAB LES Final Result Performing Organization Address [facility] Co de Phone Number [facility] [address] [place] [address] [phone] * HCG, Qualitative, Urine (08/16/2024 11:50 AM EST) Urine NEGATIVE NEGATIVE [facility] Comment:This test was develo ped to detect early . Falsenegative results may occur after the 5th - 7th week ofpregnancy when using this test method. If clinicallyindicated, consider a serum hCG. 08/16/2024 11:5 0 AM EST 08/16/2024 11:53 AM EST us Generic External Data Provider LAB URINE ORDERAB LES Final Result Performing Organization Address [facility] Co de Phone Number [facility] [address] [place] [address] [phone] * (ABNORMAL) Urinalysis, Complete, with Reflex to Culture (08/16/2024 11:50 AM EST) Color Urine Ford [facility] Comment:DIPSTICK RESULTS MAY BE OBSCURED. Appearance Urine Hazy [facility] PH 5.0 5.0 - 9.0 [facility] Glucose Urine UA 250(A) Negative mg/dL [facility] Urine Blood Moderate (2+)(A) Negative [facility] Specific [place] - Urine 1.025 1.005 - 1.025 [facility] Urine Protein 100 (2+)(A) Neg-Trace mg/dL [facility] Urine Ketones Trace Negative mg/dL [facility] Nitrite Urine Positive(A) Negative [facility] Leukocyte Esterase Urine Moderate (2+)(A) Negative [facility] RBC Urine >20(A) 0 - 2 /HPF [facility] Urine WBC >50(A) 0 - 5 /HPF [facility] Urine Squamous Epithelial Cell 6-10 0 - 2 /HPF [facility] Urine Bacteria 2+ None Seen [facility] Hyaline Casts, Urine 0-2 0 - 2 /LPF [facility] Urine Yeast Present [facility] 08/16/2024 11:5 0 AM EST 08/16/2024 11:53 AM EST Narrative [facility] - 08/16/2024 12:31 PM EST 1021Urine, Clean Catch us Generic External Data Provider LAB URINE ORDERAB LES Final Result Performing Organization Address [facility] Co de Phone Number [facility] [address] [place] [address] [phone] * Culture, Urine, Routine (08/16/2024 12:00 AM EST) Urine Urine specimen obtained by clean catch procedure / Unknown 08/16/2024 08/16/2024 Comment:UACC Narrative [facility] - 08/17/2024 12:03 PM EST Urine Culture Report Result Urine Culture 10,000 to 50,000 cfu/ml Urine Culture Mixed bacterial mina characteristic of Urine Culture urogenital contamination. Specimen Source: Urine clean catch us Generic External Data Provider LAB MICROBIOLOGY - GENERAL ORDERABLES Final Result Performing Organization Address [facility] Co de Phone Number [facility] [address] [place] [phone] documented in this encounter Visit Diagnoses Not on filedocumented in this encounter Additional Health Concerns Assessment Noted Time PHQ-9 Depression Total Score: 0 07/02/20 24 2:27 PM EST documented as of this encounter Care Teams Rn Concurrent Review Relationship Specialty Start Date End Date Sheree Nixon MD [address] [place] [phone] PCP - General Internal Medicine 04/26/23 documented as of this encounter
--- OUTSIDE RECORDS SUMMARY | 2024-09-01 14:22 | XMS_ITS | Encounter Summary ---
Author Organization [employer] Address [address] [facility] 7 [place] [address] Care Team Providers Care Mainframe Systems Administrator Name Role Phone Sheree Nixon MD Primary Care Pro vider Reason for Visit * Reason Onset Date Comments X-Ray Orders 12/20/2023 Encounter Details Date Type Department Care Team (Late st Contact Info) Description 12/20/2023 Telephone [facility] MEDICINE [address] [place] [address] Sheree Nixon MD [address] [place] [address] X-Ray Orders Social History Tobacco Use Types Packs/Day Years [...] encounter Miscellaneous Notes * Telephone Encounter - Seth Munoz - 12/20/2023 11:35 AM EDT Tc amadeo Graham at [facility] calling to request a new order states the previous Thoracic Spine w/Contrast order is incorrect and it needs to be Thoracic Spine w/o Contrast patients appt is on 12/21 documented in this encounter Plan of Treatment Not on file documented as of this encounter Visit Diagnoses Not on filedocumented in this encounter Additional Health Concerns Assessment Noted Time PHQ-9 Depression Total Score: 2 10/26/19 1:54 PM EDT documented as of this encounter Care Teams Mainframe Systems Administrator Relationship Specialty Start Date End Date Sheree Nixon MD [address] [place] [phone] PCP - General Internal Medicine 04/26/23 documented as of this encounter
--- OUTSIDE RECORDS SUMMARY | 2024-09-01 14:22 | XMS_ITS | Encounter Summary ---
Author Organization [employer] Address [address] [facility] 7 [place] [address] Care Team Providers Care Dental Financial Coordinator Name Role Phone Sheree Nixon MD Primary Care Pro vider Reason for Visit * Reason Onset Date Comments MRI 11/28/2023 Encounter Details Date Type Department Care Team ([facility] st Contact Info) Description 11/28/2023 Telephone [facility] MEDICINE [address] [place] [address] Sheree Nixon MD [address] [place] [address] MRI Social History Tobacco Use Types Packs/Day Years [...] encounter Miscellaneous Notes * Telephone Encounter - Jairon Villalobos - 11/28/2023 4:11 PM EDT Tc from pt calling regards to MRI she attempted to get at [facility] but stated machine was too small for her. [facility] advised her to contact pcp to for er to get the MRI in a different facility with a open machine. Please contact pt at [phone]. documented in this encounter Plan of Treatment Not on file documented as of this encounter Visit Diagnoses Not on filedocumented in this encounter Additional Health Concerns Assessment Noted Time PHQ-9 Depression Total Score: 2 10/26/19 1:54 PM EDT documented as of this encounter Care Teams Dental Financial Coordinator Relationship Specialty Start Date End Date Sheree Nixon MD [address] [place] [phone] PCP - General Internal Medicine 04/26/23 documented as of this encounter
--- OUTSIDE RECORDS SUMMARY | 2024-09-01 14:22 | XMS_ITS | Clinical Summary ---
Author Organization [employer] Address [address] [place] [address] Care Team Providers Care E Merchant Name Role Phone Sheree Nixon MD Primary Care Pro vider Allergies Active Allergy Reactions Criticality Noted Date Comments Oxycodone-Acetaminophen Palpitations Low 10/01/2023 Medications Multiple Vitamin (multivitamin) capsule Take 1 capsule by mouth in the morning. Active loratadine (Claritin) 10 MG tablet Take 1 tablet (10 mg) by mouth in the morning. 30 tablet 2 4 09/27/19 25 Active lidocaine (Lidoderm) 5 % patch Apply 1 patch topically in the morning. Remove & discard patch within 12 hours or as directed by MD. 15 patch 2 4 Active Diclofenac Sodium 1 % gel Apply 1 Application topically if needed each day (pain). 50 g 1 4 Active albuterol (Ventolin HFA) 108 (90 Base) MCG/ACT inhalerIndicatio ns:Mild intermittent asthma without complication INHALE 2 PUFFS BY MOUTH EVERY 4-6 HOURS NEEDED FOR WHEEZING 18 g 2 4 Active omega-3 acid ethyl esters (Lovaza) 1 g capsuleIndicatio ns:Hypertriglyce ridemia Take 1 capsule (1 g) by mouth 2 times daily. 180 capsule 1 4 07/02/20 25 Active omeprazole (PriLOSEC) [address] capsuleIndicatio ns:Epigastric abdominal pain,Heartburn Take 1 capsule (20 mg) by mouth before breakfast. 90 capsule 4 07/02/20 25 Active Active Problems Problem Noted Date Diagnosed Date Prediabetes 07/02/2024 Back pain with radiculopathy 07/02/2024 GERD (gastroesophageal reflux disease) 4 Left tennis elbow 08/23/2023 Assessment & Plan (08/23/2023 2:01 PM EST): Alternate hot and cold on affected area Acetaminophen PRN Diclofenac gel locally PRN Referral to orthopedics patient may benefit from steroid injection Hypertriglyceridemia 11/30/2022 Assessment & Plan (12/01/2022 10:17 AM EDT): Going to try lovaza. F/up 2 month and will order lipid panel then; f/up 3 months(from today) for hypertriglyceridemia. Instruct patient to not get labs done until at least 2 weeks before visit Component Ref Range & Units 2 d ago Cholesterol, Total <200 mg/dL 151 HDL Cholesterol > OR = 50 mg/dL 49??Low?? Triglycerides <150 mg/dL 205??High?? Menorrhagia with regular cycle 10/25/2022 Assessment & Plan (10/25/2022 2:44 PM EDT): Seeing Javascript Front End Developer at [facility]. Waiting for new transvaginal US on november 03. Hematocrit: 11.4 Ordered CBC, Ferrous sulfate Transvaginal US 08/28/2022= Impression: No acute abnormality. There is a right- sided fundal fibroid measuring 2.4 x 2.9 x 2 cm. There are 2 small mildly echogenic foci in the right ovary measuring approximately 0.8 and 0.7 cm. There are stable since prior ultrasound exams. CT scan 05/16/22 = Impression: No acute findings. Fatty infiltration of the liver. Diverticulosis of the colon. No evidence of diverticulitis. Routine adult health maintenance 10/25/2022 Assessment & Plan (02/21/2023 1:54 PM EDT): PHQ: 2 Lmp: January 22, sometimes heavy cramps heavy bleeding, Had cloth worker appointment in November. Mammo: 11/29/22 recommendation: annual mammo, this information is reflected in [facility] care gaps. Womens health: 12/26/22: [facility] wom[facility] services: endometrial biopsy pathology showed proliferative endometrium with no evidence of hyperplasia and/or malignancy. Co testing was done was negative. Mammogram was BI-RADs 1. Pelvic ultrasound showed: no significant abnormality seen. For abnormal uterine and vaginal bleeding they gave her options: lysteda, control pills. Mirena IUD, endometrial ablation and hysterectomy. She reported today that she is still thinking. She told me that they didn't explain anything to her. I explained the previous information to her. She said she understood and will call and make an appointment to move forward with Mirena IUD she thinks. We will f/up in one month. Assessment & Plan (12/01/2022 4:31 PM EDT): PM/S/FH: Social H: Medications: Allergies: nka nkma Diet: we discussed diet and exercise, reducing one third of carb intake and replacing it with a green cruciferous vegetable. Exercise: PHQ: 2 STI: Contraception: Pap: last october. Smoking status: ___low dose CT, __ AAA US Lipids: Mammo: [facility] last sunday Colonoscopy: 45 y/o DEXA: 65 women, 70 men Vacc.: Eye exam: Dental home: Assessment & Plan (10/25/2022 2:38 PM EDT): Patient needs a TP visit. I am ordering her blood work for that now and we will schedule her the visit. Ordered CMP for kidneys (NSAID use) and routine health Anemia 10/25/2022 Assessment & Plan (12/01/2022 10:15 AM EDT): H&H wnl. Patient taking her iron 2 to 3 times a week to avoid constipation. Patient to continue current therapies, will order CBC and iron panel at next annual exam. Assessment & Plan (10/25/2022 2:45 PM EDT): Hematocrit: 11.4 Ordered CBC, Ferrous sulfate Asthma 09/13/2022 PCOS (polycystic ovarian syndrome) 09/04/2022 Endometriosis 09/04/2022 Steatosis of liver 07/24/2022 Periodic limb movement disorder 12/26/2018 Obstructive sleep apnea syndrome 05/07/2018 Carpal tunnel syndrome 12/27/2017 Fibromyalgia 10/31/2017 Depressed mood 03/09/2017 Obesity (BMI 30-39.9) 03/09/2017 Resolved Problems Problem Noted Date Diagnosed Date Resolved Date BV (bacterial vaginosis) 04/08/2024 Oropharyngeal dysphagia 09/29/202306/07 Vitamin D deficiency 12/26/2018 023 Assessment & Plan (12/01/2022 10:14 AM EDT): She stopped taking vitamin D because she feels tired when she takes it. I advised trying to take it at night. Component Ref Range & Units 2 d ago Vitamin D,25-OH, Total, IA 30 - 100 ng/mL 22??Low?? Comment: Vitamin D Status ? 25-OH Vitamin D: Abdominal pain 09/16/2018 05/28/2023 Assessment & Plan (02/21/2023 1:59 PM EDT): Patient had endometrial biopsy 12/05/22. She stated it was very painful. She denies any urinary symptoms. This abdominal pain seems to be residual from her endometrial biopsy. She agreed. We will f/up in one month. Ed precautions advised. Dysmenorrhea 03/29/2018 05/28/2023 Irregular periods 03/29/2018 05/28/2023 Anterior knee pain 03/09/2017 3 Frequent headaches 03/09/2017 3 Encounters Date Type Department Care Team Description 08/16/2024 Orders Only GENERIC EXTERNAL DATA DEPARTMENT Provider, Generic External Data 07/15/2024 Telephone [facility] [address] [place] [address] Sheree Nixon MD 07/08/2024 Telephone [facility] [address] [place] [place] [address] Sheree Nixon MD 07/02/2024 2:45 PM EST Office Visit [facility] [address] [place] [address] Sheree Nixon MD Abnormal screening mammogram (Primary Dx); Screening mammogram for breast cancer; Prediabetes; Class 3 severe obesity with serious comorbidity and body mass index (BMI) of 40.0 to 44.9 in adult, unspecified obesity type (CMS/HCC); Mild intermittent asthma without complication; Hypertriglyceridemia; Epigastric abdominal pain; Heartburn; Chronic GERD; Thoracic radiculopathy; Lumbar radiculopathy; Iron deficiency anemia, unspecified iron deficiency anemia type; Influenza vaccine needed; Dietary counseling; Exercise counseling; Routine adult health maintenance; Obesity (BMI 30-39.9); Obstructive sleep apnea syndrome; Back pain with radiculopathy; Gastroesophageal reflux disease without esophagitis 07/02/2024 Travel 06/25/2024 Telephone [facility] [address] [place] [address] Carmen Tanner MA chart prep from Last 3 Months Immunizations Name Administration Dates Next Due Hep B, adult 03/14/2024,10/09/2023,09/11/2023 Influenza injectable quadriv alent preservative free 09/28/2023,06/22/2020,06/03/2019,2016 Influenza, seasonal, injecta ble, preservative free 07/02/2024 MMR 10/09/2023,09/11/2023 Moderna Covid-19 Vaccine 12+ 06/22/2021,11/28/19 21 Pneumococcal Conjugate PCV 20 05/28/2023 Tdap 08/02/2017 Family History Medical History Relation Name Comments Blindness Paternal Grandfather Relation Name Status Comments Paternal Grandfather Social History Tobacco Use Types Packs/Day Years Used Date Smoking Tobacco: Never Passive Smoke Exposure: Never Smokeless Tobacco: Never Tobacco Cessation:Counseling Given: Not Answered Alcohol Use Standard Drinks/Week Comments Never 0 [...] Orientation Straight 05/28/2023 6: 29 PM EDT Last Filed Vital Signs Vital Sign Reading Time Taken Comments Blood Pressure 124/76 07/02/2024 2:29 PM EST Pulse 74 07/02/2024 2:29 PM EST Temperature 36.6 ??C (97.8 ??F) 07/02/2024 2:29 PM ES T Respiratory Rate 12 07/02/2024 2:29 PM EST Oxygen Saturation 97% 05/17/2024 9:11 AM EDT Inhaled Oxygen Concentration - - Weight 104 kg (228 lb 6.4 oz) 07/02/2024 2:29 PM EST Height 157.5 cm (5' 2 ) 05/17/2024 9:11 AM EDT Body Mass Index 41.77 05/17/2024 9:11 AM EDT Plan of Treatment Health Maintenance Due Date Last Done Comments Family Planning (PISQ) 11/09/1995 Hepatitis A Vaccines (1 of 2 - Risk 2-dose series) 11/09/1999 COVID-19 Vaccine ( season) 2024 06/22/2021, 11/27/2020 SDOH Screening 09/19/2024 09/19/2023 Diabetes: Hemoglobin A1C 04/17/2025 024, 06/21/2023, 12/01/2022, Additional history exists Alcohol/Substance Use Screening 07/02/2025 07/02/2024 Depression Screening 07/02/2025 07/02/2024, 07/02/20 24 Tobacco Screening 07/02/2025 07/02/2024 Mammogram 08/09/2025 08/09/2024, 11/29/2022 Pap Smear 10/16/2025 10/16/2022 DTaP/Tdap/Td Vaccines (2 - Td or Tdap) 08/02/2027 08/02/2017 Cervical Cancer Screening 10/17/2027 HPV/Cotest 10/17/2027 10/16/2022, 05/14/2018 Lipid Panel 06/21/2028 06/21/2023, 11/28/2022 Zoster Vaccines (1 of 2) 2030 RSV Patients and Patients Aged 60 years or older (1 - 1-dose 75+ series) 11/09/2055 HIV Screening Completed 12/18/2022, 11/28/2022 Hepatitis C Screening Completed 12/18/2022, 023 Pneumococcal Vaccine: Pediatrics (0 to 5 Years) and At-Risk Patients (6 to 64 Years) Completed 05/28/2023 Hepatitis B Vaccines Completed 03/14/2024, 10/09/2023, 09/11/2023 Influenza Vaccine Completed 07/02/2024, , 06/22/2020, Additional history exists HIB Vaccines Aged Out No longer eligi ble based on patient's age to complete this topic HPV Vaccines Aged Out No longer eligi ble based on patient's age to complete this topic IPV Vaccines Aged Out No longer eligi ble based on patient's age to complete this topic Meningococcal Vaccine Aged Out No josh j luis eligible based on patient's age to complete this topic RSV under 20 months Aged Out No longe r eligible based on patient's age to complete this topic Rotavirus Vaccines Aged Out No longer eligible based on patient's age to complete this topic Procedures Procedure Name Priority Date/Time Associated Diagnosis Comments CT ABDOMEN PELVIS WO CONTRAST Routine 08/16/2024 2:47 PM EST BASIC METABOLIC PANEL Routine 08/16/2024 12:21 PM EST HEPATIC FUNCTION PANEL Routine 12:21 PM EST CBC WITH AUTO DIFFERENTIAL Routine 08/16/2024 12:21 PM EST HCG, QL, URINE Routine 08/16/2024 11:50 AM EST URINALYSIS, COMPLETE, WITH REFLEX TO CULTURE Routine 08/16/2024 11:50 AM EST CULTURE, URINE, ROUTINE Routine 08/16/2024 12:00 AM EST IRON AND TOTAL IRON BINDING CAPACITY Routine 08/11/2024 10:28 AM EST Iron deficiency anemia, unspecified iron deficiency anemia type FERRITIN Routine 08/11/2024 10:28 AM EST Iron deficiency anemia, unspecified iron deficiency anemia type CBC WITH AUTO DIFFERENTIAL Routine 08/11/2024 10:28 AM EST Iron deficiency anemia, unspecified iron deficiency anemia type CBC Routine 08/11/2024 10:28 AM EST Anemia, unspecified type BI MAMMOGRAM SCREENING TOMOSYNTHESIS BILATERAL Routine 08/09/2024 10:03 AM EST Screening mammogram for breast cancer HEMOGLOBIN A1C Routine 04/17/2024 10:00 AM EDT Vaginal discharge LIPID PANEL, STANDARD Routine 06/21/2023 7:01 AM EST Annual physical exam HEPATITIS C ANTIBODY Routine 12/18/2022 2:08 PM EDT Pelvic pain HIV ANTIBODY/ANTIGEN ([place] DPH) Routine 12/18/2022 2:08 PM EDT Pelvic pain HM PAP/HPV Routine 10/16/2022 from Last 3 Months or Most Recently Relevant to Health Maintenance Results * CT Abdomen Pelvis w/o Contrast (08/16/2024 2:47 PM EST) Anatomical Region Laterality Modality Body, Pelvis, Abdomen Computed T omography 08/16/2024 2:47 PM EST Narrative 08/16/2024 2:49 PM EST ? [facility] ?[address] ?[place] [address] ? CT Scan Report ? Signed ? Patient: Elisa Zuniga M ?MR#: [id number] ?? 96 ? : 1980 ?Acct:[id number] ? Age/Sex: 43 / F ?ADM Date: 08/16/24 ? Loc: HO.ED ? Attending Dr: ? Ordering Physician: Toña Hargrove ?? Date of Service: 08/16/24 ?? Procedure(s): CT abdomen pelvis wo IV con ?? Accession Number(s): [id number] ? cc: Toña Hargrove; Sheree Nixon MD ? Report Number: ?? [id number]: Total DLP = ??797.00 mGy-cm ? CLINICAL HISTORY: R flank pain ? CT abdomen and pelvis without contrast ? Comparison: CT/REG/MT/SR - CT ABDOMEN PELVIS WO IV CON [...] in OV> ? 08/16/24 1448 ? DD/ ? TD/TT: 08/16/247 ? Water Supply Engineer: ? Procedure Note David, Image - 08/16/[address] [address] [address] Scan Report Signed Patient: Elisa Zuniga [facility]#: [id number] 96 : 1980Acct:[id number] Age/Sex: 43 / FADM Date: 08/16/24 Loc: HO.ED Attending Dr: Ordering Physician: Toña Hargrove Date of Service: 08/16/24 Procedure(s): CT abdomen pelvis wo IV con Accession Number(s): [id number] cc: Toña Hargrove; Sheree Nixon MD Report Number: [id number]: Total DLP = 797.00 mGy-cm CLINICAL HISTORY: R flank pain CT abdomen and pelvis without contrast Comparison: CT/REG/MT/SR - CT ABDOMEN PELVIS WO IV CON [...] OV> 08/16/24 1448 DD/ 1447 TD/TT: 08/16/24 1447 Water Supply Engineer: [facility] External Provider IMG CT PROCEDURES Edited Result - Final * (ABNORMAL) CBC auto differential (08/16/2024 12:21 PM EST) Only the most recent of2 resultswithin the time period is included. White Blood Count 5.5 4.8 - 10.8 X10*3/uL [facility] Red Blood Count 4.57 4.20 - 5.50 X10*6/uL [facility] Hemoglobin 13.5 12.0 - 16.0 g/dl [facility] Hematocrit 39.8 37.0 - 47.0 % [facility] Mean Corpuscular Volume 87.1 80.0 - 98.0 fL [facility] Mean Corpuscular Hemoglobin 29.5 27.0 - 33.0 pg [facility] Mean Corpuscular HGB Conc 33.9 31.0 - 35.0 g/dl [facility] Red Cell Distribution Width 12.3 11.0 - 16.0 % [facility] Platelet Count 223 160 - 400 X10*3/uL [facility] Mean Platelet Volume 8.7(L) 9.4 - 12.3 fL [facility] Neutrophils Percent Auto 68.6 45 - 73 % [facility] Imm Gran Pct Auto 0.4 0.0 - 0.4 % [facility] Lymphocytes Percent Auto 20.7 20 - 40 % [facility] Monocytes Percent Auto 7.5 2 - 11 % [facility] Eosinophils Percent Auto 2.4 0 - 4 % [facility] Basophils Percent Auto 0.4 0 - 2 % [facility] NRBC Pct Auto 0.0 0.0 - 0.2 /100WBC [facility] Neutrophils Absolute Auto 3.8 2.0 - 8.3 x10*3/uL [facility] Imm Gran Abs Auto 0.02 0.00 - 0.03 X10*3/uL [facility] Lymphocytes Absolute Auto 1.1(L) 1.2 - 4.9 X10*3/uL [facility] Monocytes Absolute Auto 0.4 0.1 - 1.2 X10*3/uL [facility] Eosinophils Absolute Auto 0.1 0.0 - 0.4 X10*3/uL [facility] Basophils Absolute Auto 0.0 0.0 - 0.2 X10*3/uL [facility] NRBC Abs Auto 0.000 0.0 - 0.012 X10*3/uL [facility] 08/16/2024 12:2 1 PM EST 08/16/2024 12:24 PM EST Generic External Data Provider LAB BLOOD ORDERAB LES Final Result Performing Organization Address [facility]/ZIP Co de Phone Number [facility] [address] [place] [phone] * Hepatic Function Panel (08/16/2024 12:21 PM EST) Bilirubin, Total 0.3 0.0 - 1.0 mg/dL [facility] Bilirubin, Direct 0.1 0.0 - 0.5 mg/dL [facility] Aspartate Amino Transferase 18 5 - 31 U/L [facility] Alanine Aminotransferase 17 0 - 31 U/L [facility] Total Protein 7.7 6.5 - 8.0 g/dL [facility] Albumin Level 4.1 3.5 - 5.0 g/dL [facility] Alkaline Phosphatase 45 39 - 117 U/L [facility] 08/16/2024 12:2 1 PM EST 08/16/2024 12:24 PM EST Generic External Data Provider LAB BLOOD ORDERAB LES Final Result Performing Organization Address [facility] Co de Phone Number [facility] [address] [place] [phone] * (ABNORMAL) Basic Metabolic Panel (08/16/2024 12:21 PM EST) Pathologist [facility] Sodium 139 135 - 145 mmol/L [facility] Potassium 4.4 3.3 - 5.1 mmol/L [facility] Chloride 108 96 - 108 mmol/L [facility] Carbon Dioxide 27 22 - 29 mmol/L [facility] Anion Gap 8(L) 12 - 20 [facility] Urea Nitrogen (BUN) 15 9 - 16 mg/dL [facility] Creatinine, Serum 0.84 0.5 - 1.4 mg/dL [facility] Creatinine Clr Calc Pharmacy 97.8 [facility] Comment:Provided height and weight: 157.48 cm,104.326 kg.eGFR (calculated from the MDRD study equation) and eCrCl(calculated from the Cockcroft-Gault equation) are based ondifferent parameters and may not yield comparable results.If eCrCl result is absurd, please check patient'sheight/weight. Estimated Glomerular Filt Rate >60 [facility] Comment:Chronic Kidney Disea se: Estimated GFR < 60 mL/min/1.24l0Eybnds Kidney Disease: Estimated GFR < 15 mL/min/1.73m2 Glucose 96 60 - 115 mg/dL [facility] Calcium 9.4 8.4 - 10.2 mg/dL [facility] 08/16/2024 12:2 1 PM EST 08/16/2024 12:24 PM EST us Generic External Data Provider LAB BLOOD ORDERAB LES Final Result [facility] [address] [place] [phone] * (ABNORMAL) Urinalysis, Complete, with Reflex to Culture (08/16/2024 11:50 AM EST) Color Urine Pepin [facility] Comment:DIPSTICK RESULTS MAY BE OBSCURED. Appearance Urine Hazy [facility] PH 5.0 5.0 - 9.0 [facility] Glucose Urine UA 250(A) Negative mg/dL [facility] Urine Blood Moderate (2+)(A) Negative [facility] Specific [place] - Urine 1.025 1.005 - 1.025 [facility] Urine Protein 100 (2+)(A) Neg-Trace mg/dL [facility] Urine Ketones Trace Negative mg/dL [facility] Nitrite Urine Positive(A) Negative [facility] Leukocyte Esterase Urine Moderate (2+)(A) Negative [facility] RBC Urine >20(A) 0 - 2 /HPF [facility] Urine WBC >50(A) 0 - 5 /HPF [facility] Urine Squamous Epithelial Cell 6-10 0 - 2 /HPF [facility] Urine Bacteria 2+ None Seen [facility] Hyaline Casts, Urine 0-2 0 - 2 /LPF [facility] Urine Yeast Present [facility] 08/16/2024 11:5 0 AM EST 08/16/2024 11:53 AM EST Narrative [facility] - 08/16/2024 12:31 PM EST 1021Urine, Clean Catch us Generic External Data Provider LAB URINE ORDERAB LES Final Result [facility] [address] [place] [address] [phone] * HCG, Qualitative, Urine (08/16/2024 11:50 AM EST) Urine NEGATIVE NEGATIVE [facility] Comment:This test was develo ped to detect early . Falsenegative results may occur after the 5th - 7th week ofpregnancy when using this test method. If clinicallyindicated, consider a serum hCG. 08/16/2024 11:5 0 AM EST 08/16/2024 11:53 AM EST us Generic External Data Provider LAB URINE ORDERAB LES Final Result Performing Organization Address [facility]/ZIP Co de Phone Number [facility] [address] [place] [address] [phone] * Culture, Urine, Routine (08/16/2024 12:00 AM EST) Urine Urine specimen obtained by clean catch procedure / Unknown 08/16/2024 08/16/2024 Comment:UACC Narrative [facility] - 08/17/2024 12:03 PM EST Urine Culture Report Result Urine Culture 10,000 to 50,000 cfu/ml Urine Culture Mixed bacterial mina characteristic of Urine Culture urogenital contamination. Specimen Source: Urine clean catch us Generic External Data Provider LAB MICROBIOLOGY - GENERAL ORDERABLES Final Result [facility] [address] [place] [address] [phone] * Iron And Total Iron Binding Capacity (08/11/2024 10:28 AM EST) Pathologist [facility] Iron 78 30 - 160 mcg/dL [facility] Total Iron Binding Capacity 309 228 - 428 mcg/dL [facility] Percent Iron Saturation 25 15 - 50 % [facility] Unsaturated Iron Binding 231 ug/dL [facility] Blood Venous blood specimen / Unknown 08/11/2024 10:28 AM EST 08/11/2024 1:45 PM EST Sheree Saeed MD LAB BLOOD ORDERAB LES Final Result [facility] [address] [place] [address] [phone] * (ABNORMAL) CBC (08/11/2024 10:28 AM EST) [facility] White Blood Count 4.0(L) 4.8 - 10.8 X10*3/uL [facility] Red Blood Count 4.31 4.20 - 5.50 X10*6/uL [facility] Hemoglobin 12.9 12.0 - 16.0 g/dl [facility] Hematocrit 37.7 37.0 - 47.0 % [facility] Mean Corpuscular Volume 87.5 80.0 - 98.0 fL [facility] Mean Corpuscular Hemoglobin 29.9 27.0 - 33.0 pg [facility] Mean Corpuscular HGB Conc 34.2 31.0 - 35.0 g/dl [facility] Red Cell Distribution Width 12.0 11.0 - 16.0 % [facility] Platelet Count 233 160 - 400 X10*3/uL [facility] Mean Platelet Volume 9.1(L) 9.4 - 12.3 fL [facility] NRBC Pct Auto 0.0 0.0 - 0.2 /100WBC [facility] NRBC Abs Auto 0.000 0.0 - 0.012 X10*3/uL [facility] Blood Venous blood specimen / Unknown 08/11/2024 10:28 AM EST 08/11/2024 11:02 AM EST us Sheree Saeed MD LAB BLOOD ORDERAB LES Final Result Performing Organization Address [facility] de Phone Number [facility] [address] [place] [address] [phone] * Ferritin (08/11/2024 10:28 AM EST) Ferritin 50 10 - 250 ng/mL [facility] Blood Venous blood specimen / Unknown 08/11/2024 10:28 AM EST 08/11/2024 1:45 PM EST us Sheree Saeed MD LAB BLOOD ORDERAB LES Final Result Performing Organization Address [facility] de Phone Number [facility] [address] [place] [address] [phone] * BI Mammogram Screening Tomosynthesis Bilateral (08/09/2024 10:03 AM EST) Anatomical Region Laterality Modality Breast Bilateral Mammography 08/09/2024 10:0 3 AM EST Narrative 08/17/2024 5:50 PM EST ? [facility] ? [address] ?[place] [address] ? Mammography Report ? Signed ? Patient: Efrain,Lesley ?MR#: [id number] ?? 96 ? : 1980 ?Acct:[id number] ? Age/Sex: 43 / F ?ADM Date: 01/04/25 ? Loc: HO.MAMMO ? Attending Dr: Sheree Saeed MD ? Ordering Physician: Sheree Nixon MD ?Re ?? sults: 1Negative ? Date of Service: 08/09/24 ?Follow Up: 1 Year From Orig ?? inal Mammogram ? Procedure(s): MM tomosynthesis screening BI ?? Accession Number(s): [id number] ? cc: Sheree Nixon MD ? EXAMINATION: ?? MM SCREENING DIGITAL BREAST TOMOSYNTHESIS, BILATERAL ? CLINICAL INFORMATION: ? Screening. Asymptomatic. ? COMPARISON: ?? Mammography: Comparison is made with available priors ? TECHNIQUE: ?? Digital breast mammography with tomosynthesis is performed in both the ?? craniocaudal and mediolateral oblique views along with computer-aided ?? detection (CAD). ? FINDINGS: ?? There are scattered areas of fibroglandular density (ACR BI-RADS breast ?? composition Category b). ? There are no significant masses, abnormal calcifications, or other ?? abnormalities. ? MM/MM tomosynthesis screening BI ?? IMPRESSION: ?? No mammographic evidence of malignancy. ? ASSESSMENT: ? BI-RADS BI-RADS 1 - Negative ? RECOMMENDATION: ?? Routine annual mammography screening. ? 1 year F/U ? This examination should not preclude the clinical evaluation of a ?? suspicious palpable abnormality. ? This patient's information was entered into a reminder system with a ?? target due date for their next mammogram. ? Electronically signed by: ??Dominique Gallardo DO ??08/17/2024 05:48 PM EST ?? RP ? Dictated By: ?Dominique Gallardo DO ? Signed By: ?<Electronically signed by Dominique Gallardo, DO in OV> ? 08/17/24 1748 ? DD/ 1003 ? TD/TT: 08/09/24 1016 ? Water Supply Engineer: ? Procedure Note Donkishater, Image - 08/17/2024 [facility] [address] [place] [address] Mammography Report Signed Patient: Elisa Zuniga MMR#: [id number] : 1980Acct:[id number] Age/Sex: 43 / FADM Date: 08/09/24 Loc: HO.MAMMO Attending Dr: Sheree Saeed MD Ordering Physician: Sheree Nixon sults: 1Negative Date of Service: 08/09/24Follow Up: 1 Year From Orig inal Mammogram Procedure(s): MM tomosynthesis screening BI Accession Number(s): [id number] cc: Sheree Nixon MD EXAMINATION: MM SCREENING DIGITAL BREAST TOMOSYNTHESIS, BILATERAL CLINICAL INFORMATION: Screening. Asymptomatic. COMPARISON: Mammography: Comparison is made with available priors TECHNIQUE: Digital breast mammography with tomosynthesis is performed in both the craniocaudal and mediolateral oblique views along with computer-aided detection (CAD). FINDINGS: There are scattered areas of fibroglandular density (ACR BI-RADS breast composition Category b). There are no significant masses, abnormal calcifications, or other abnormalities. MM/MM tomosynthesis screening BI IMPRESSION: No mammographic evidence of malignancy. ASSESSMENT: BI-RADS BI-RADS 1 - Negative RECOMMENDATION: Routine annual mammography screening. 1 year F/U This examination should not preclude the clinical evaluation of a suspicious palpable abnormality. This patient's information was entered into a reminder system with a target due date for their next mammogram. Electronically signed by: Dominique Gallardo DO 08/17/2024 05:48 PM EST Dictated By: Dominique Gallardo DO Signed By: <Electronically signed by Dominique Gallardo DO in OV> 08/17/24 1748 DD/ 1003 TD/TT: 08/09/24 1016 Water Supply Engineer: us Sheree Saeed MD IMG BI PROCEDURES Edited Result - Final * Hemoglobin A1c (04/17/2024 10:00 AM EDT) Hemoglobin A1c 5.7 <6.0 % [facility] Comment:Hemoglobin A1C Refer ence Range Adults: 4.8 - 6.0 % Non diabetic: < 6.0 % Goal: < 7.0 %Additional Action Suggested: > 8.0 %Note: Hemoglobin A1c results are invalid for patients with abnormal amounts of HbF. Blood transfusions may impact the HbA1c concentration in the patient sample. Estimated Average Glucose 117 mg/dL [facility] Comment:eAG = Estimated ave rage glucose which is %A1C expressed asaverage glucose, using the formula of the P3N-PxygyinLbgvaqc Glucose study (ADAG), Diabetes Care, Vol.31,#8,Mar. 2007 Blood Venous blood specimen / Unknown 04/17/2024 10:00 AM EDT 04/17/2024 11:19 AM EDT us Pranav Frausto MD LAB BLOOD ORDERABLES Final Resul t [facility] [address] [place] [phone] * Lipid Panel, Standard (06/21/2023 7:01 AM EST) Triglycerides 149 <150 mg/dL [facility] Comment:Desirable Triglyceri de: less than 150 mg/dLBorderline High Triglyceride 150-199 mg/dLHigh Triglyceride: 200-499 mg/dLVery High Triglyceride: greater than or equal to 5OO mg/dL Cholesterol 162 <200 mg/dL [facility] Comment:Desirable Cholestero l: less than 200 mg/dLBorderline High Cholesterol: 200-239 mg/dLHigh Cholesterol: greater than 239 mg/dL LDL Cholesterol Calculated 86 <100 mg/dL [facility] Comment:Desirable LDL: less than 100 mg/dLNear Optimal/Above Optimal LDL: 110- 129 mg/dLBorderline High LDL: 130-159 mg/dLHigh LDL: 160-189 mg/dLVery High LDL: greater than or equal to 190 mg/dL HDL Cholesterol 47 >40 mg/dL [facility] Comment:Desirable HDL: great er than 40 mg/dL Note: This HDL assay may give artificially low results in patients with liver disease. Blood Venous blood specimen / Unknown 06/21/2023 7:01 AM EST 06/21/2023 7:01 AM EST Sheree Saeed MD LAB BLOOD ORDERAB LES Final Result Performing Organization Address [facility]/ZIP Co de Phone Number [facility] [address] [place] [phone] * Hepatitis C Ab (12/18/2022 2:08 PM EDT) Hepatitis C Antibody Nonreactive Nonreactive [facility] Comment:Antibodies to HCV no t detected; does not exclude early acuteHCV infection. 12/18/2022 2:08 PM EDT 12/18/2022 2:09 PM EDT [facility] LAB BLO OD ORDERABLES Final Result Performing Organization Address [facility] Co de Phone Number [facility] [address] [place] [phone] * HIV Ab/Ag (EDEL MEADE) (12/18/2022 2:08 PM EDT) HIV AB/AG Nonreactive Nonreactive [facility] Comment:HIV-1 p24 Ag and/or HIV-1/HIV-2 Ab not detected.A test result that is nonreactive does not exclude thepossibility of exposure to or infection with HIV-1 and/orHIV-2. Nonreactive results in this assay for individualswith prior exposure to HIV-1 and/or HIV-2 may be due toantigen and antibody levels that are below the limit ofdetection of this assay.The [employer]ene[employer] Supervisor HIV Ag/Ab Combo assay result andsupplemental assay results should be interpreted inconjunction with the patient's clinical presentation,history and other laboratory results. If the results areinconsistent with clinical evidence, additional testing issuggested to confirm the result. 12/18/2022 2:08 PM EDT 12/18/2022 2:09 PM EDT [facility] LAB BLO OD ORDERABLES Final Result [facility] [address] [place] [phone] [phone] * Pap Smear (10/16/2022) Pap Negative for intraephithelial lesion or malignancy Negative for intraephithelial lesion or malignancy, Other HPV Not Detected Undetected, Indeterminate, Quantitative, Not Detected Historical Provider MD HEALTH MAINTENANCE Final Result from Last 3 Months or Most Recently Relevant to Health Maintenance [facility] Care Teams E Merchant Relationship Specialty Start Date End Date Sheree Nixon MD [address] [place] [phone] PCP - General Internal Medicine 04/26/23
--- OUTSIDE RECORDS SUMMARY | 2024-09-01 14:22 | XMS_ITS | Clinical Summary ---
Author Organization [facility] ity Address [address] [place] [address] Care Team Providers Care Summer Law Associate Name Role Phone Sheree Nixon MD Primary Care Pro vider Social History Tobacco Use Types Packs/Day Years Used Date Smoking Tobacco: Never Assessed Sex and Gender Information Value Date Recorded Sex Assigned at Not on file Gender Identity Not on file Sexual Orientation Not on file Plan of Treatment Health Maintenance Due Date Last Done Comments Breast Cancer Screening 1980 DTaP,Tdap,and Td Vaccines (1 - Tdap) 11/09/1999 Hepatitis B Vaccines (1 of 3 - 19+ 3-dose series) 11/09/1999 Cervical Cancer Screening: P ap Smear 2001 Depression Screening 08/31/2023 HIV Screening 08/31/2023 Hepatitis C Screening 08/31/2023 Social Influencers of Health Screening 08/31/2023 COVID-19 Vaccine (2023-2 5 season) 2024 Influenza Vaccine (#1) 2024 HIB Vaccines Aged Out No longer eligi ble based on patient's age to complete this topic HPV Vaccines Aged Out No longer eligi ble based on patient's age to complete this topic Hepatitis A Vaccines Aged Out No long er eligible based on patient's age to complete this topic IPV Vaccines Aged Out No longer eligi ble based on patient's age to complete this topic MMR Vaccines Aged Out No longer eligi ble based on patient's age to complete this topic Meningococcal ACWY Vaccine Aged Out N o longer eligible based on patient's age to complete this topic Pneumococcal Vaccine: Pediat rics (0 to 5 Years) and At-Risk Patients (6 to 64 Years) Aged Out No longer eligible b ased on patient's age to complete this topic RSV Immunization Patients Un binu 20 months Aged Out No longer eligible b ased on patient's age to complete this topic Varicella Vaccines Aged Out No longer eligible based on patient's age to complete this topic Care Teams Summer Law Associate Relationship Specialty Start Date End Date Sheree Nixon MD [address] [facility] [address] [place] [phone] PCP - General 12/25/23
--- OUTSIDE RECORDS SUMMARY | 2024-09-01 14:22 | XMS_ITS | Encounter Summary ---
Author Organization [employer] Address [address] [facility] 7t [place] [address] Care Team Providers Care Spool Hauler Name Role Phone Gentry Watkins Primary Care Provider Unavail able Sheree Nixon MD Primary Care Pro vider Reason for Visit * Reason Onset Date Comments triage 11/17/2022 Encounter Details Date Type Department Care Team (Late st Contact Info) Description 11/17/2022 Telephone [facility] [address] [place] [address] Gentry Watkins AGNP triage Social History Tobacco Use Types Packs/Day Years Used Date Smoking Tobacco: Never Passive Smoke Exposure: Never Smokeless Tobacco: Never Depression Answer Date Recorded Patient Health Questionnaire-9 Score 2 10/25/2022 Depression Answer Date Recorded Patient Health Questionnaire-2 Score 0 10/25/2022 Comments Unknown Sex and Gender Information Value Date Recorded Sex Assigned at Female 06/05/2022 10:31 AM EDT Legal Sex Female 10:31 AM EDT Gender Identity Female 06/05/2022 10:31 AM EDT Sexual Orientation Straight 05/28/2023 6: 29 PM EDT COVID-19 Exposure Response Date Recorded In the last 10 days, have yo u been in contact with someone who was confirmed or suspected to have Coronavirus/COVID-19? No / Unsure 11/06/2022 1:57 PM EDT documented as of this encounter Miscellaneous Notes * Telephone Encounter - Lesly Jaffe RN - 11/17/2022 10:33 AM EDT Triage call with [employer] [place] [place] [id number] Pt calls reporting vaginal itchiness, Neg for discharge, and vaginal burning which started 4/06. Ptwas seen 11/06 and started on augmentin for sinus infection for 7 days. Pt started having the vag symptoms and stopped the antibiotic on the same day 11/09. Pt started antifungal cream on that day and used for 3 days. Pt reports some relief. Pt is advised to begin home care with antifungal vaginal cream for another 3 days. Pt is advised to call Tuesday 11/21 if symptoms not resolved with home care advice. Pt agreed with disposition and will call if needed. Protocol Used: Vaginal Symptoms (Adult) Protocol-Based Disposition: Home Care Positive Triage Question: * Symptoms of a yeast infection (i.e., itchy, white discharge, not bad smelling) and feels like prior vaginal yeast infections * All higher-acuity triage questions were negative Care Advice Discussed: * Reassurance and Education - Vaginal Yeast Infection * Genital Hygiene * Antifungal Medicine for Yeast Infection * Antifungal Medicine for Yeast Infection - Extra Notes and Warnings * Expected Course * Reasons To Call Back - Discharge becomes yellow or green - Discharge smells bad - Fever or abdomen pain occur - You become worse. * Telephone Encounter - Juan Reis - 11/17/2022 9:18 AM EDT Symptoms: Medication Reaction, Itching - No Rash Outcome: Schedule an urgent appointment (within 1 hour) or talk to a nurse or provider soon Reason: No high acuity concerns reported by caller The caller accepted this outcome speaks greenlandic documented in this encounter Plan of Treatment Not on file documented as of this encounter Visit Diagnoses Not on filedocumented in this encounter Additional Health Concerns Assessment Noted Time PHQ-9 Depression Total Score: 2 10/26/19 23 1:54 PM EDT documented as of this encounter Care Teams Spool Hauler Relationship Specialty Start Date End Date Gentry Watkins AGNP PCP - General Family Medicine 10/16/22 04/25/23 Sheree Nixon MD [address] [place] [address] [phone] PCP - General Internal Medicine 04/26/23 documented as of this encounter
--- OUTSIDE RECORDS SUMMARY | 2024-09-01 14:22 | XMS_ITS | Encounter Summary ---
Author Organization [employer] Address [address] [facility] [address] [facility] [address] 7[address] [place] [address] Care Team Providers Care Staff Readiness Officer Name Role Phone Helen Holden MD Primary Care Provider Gentry Gregorio Primary Care Provider Sheree Liu MD Primary Care Pro vider Reason for Visit * Reason Comments Med Refill Encounter Details Date Type Department Care Team (Late st Contact Info) Description 09/20/2022 Refill [facility] [address] [place] [address] Anastacio Neumann FNP Neck muscle strain, initial encounter Social History Tobacco Use Types Packs/Day Years Used Date Smoking Tobacco: Never Passive Smoke Exposure: Never Smokeless Tobacco: Never Comments Unknown Sex and Gender Information Value [...] suspected to have Coronavirus/COVID-19? No / Unsure 09/18/2022 1:56 PM EST documented as of this encounter Plan of Treatment Not on file documented as of this encounter Visit Diagnoses Diagnosis Neck muscle strain, initial encounter documented in this encounter Care Teams Staff Readiness Officer Relationship Specialty Start Date End Date Helen Holden MD PCP - General Family Medicine 06/03/19 10/15/22 Gentry Watkins AGNP PCP - General Family Medicine 10/16/22 04/25/23 Sheree Nixon MD [address] [place] [address] [phone] PCP - General Internal Medicine 04/26/23 documented as of this encounter
== END 2024-09-01 10:46 | disposition home or self-care (01) ==
PROVIDERS: PCP Student in an Organized Health Care Education/Training Program; Referring Provider Student in an Organized Health Care Education/Training Program; Visit Provider Physician Assistant
DX: M54.50 Low back pain, unspecified (principal)
CPT/HCPCS: 99205

== ENCOUNTER 2024-09-01 09:52 | Outpatient (REF) | payer MEDICAID, SELFPAY | END 2024-09-01 09:53 | disposition home or self-care (01) | LOC: HO.HOSX 09:52 | PROVIDERS: PCP Student in an Organized Health Care Education/Training Program; Referring Provider Student in an Organized Health Care Education/Training Program; Visit Provider Physician Assistant | DX: M54.50 Low back pain, unspecified (principal) | CPT/HCPCS: 99212 ==

== ENCOUNTER 2024-12-03 16:16 | Outpatient (AMB) | payer OTHER, SELFPAY ==
--- NOTE | 2024-12-03 16:20 | A.OFFVIS_ITS ---
Vital Signs 12/03/24 16:21 Height 5 ft 2 in Weight 222 lb BMI 40.6 BP 126/76 Blood Pressure Location Rt brachial Position Sitting Pulse 80 Pulse Source Pulse Oximeter Pulse Oximetry (%) 95 Oxygen Delivery Method Room Air Intake Visit Reasons: Gerd New patient Intake Note: NEW PATIENT for initial GERD eval. Prior hx of colo/egd? N Chief Complaint; C/O epigastric pain, GERD sx, occasional SOB, constipation. Pt denies any pertinent FMHx or hx of procedures for GI sx. Pt has been taking PPI without much relief to this point. Cardiology Coordinator Required: Yes Cardiology Coordinator Services: Cardiology Coordinator Present Cardiology Coordinator Name: [id number] Diamond Information Interpreted: clinical only Accompanied by: Self / Same As Patient Allergies No Known Allergies [No Known Allergies*] Allergy (Verified 12/03/24 16:20) HPI HPI Gerd New patient: Details: 44-year-old female with past medical history of sleep apnea, asthma, fatty liver is here today for initial consultation. Patient was sent to us by her PCP. Patient was seen in the ED in August of 2024 for abdominal pain and dysuria. CT scan done and it showed no acute abnormalities except for fatty liver. Patient had normal liver function study. Patient was diagnosed with UTI and sent home with antibiotics. Patient reports in the past few months she started with epigastric pain. Patient also reports that her symptoms are worse at night. Patient was waking up short of breath. Saw PCP who prescribed her omeprazole 20 mg daily. Patient started taking the medication and is feeling little better. Patient has stopped eating foods high in fat, changed some of the condiments. Patient reports that her pain is now in left upper quadrant. Patient describes the pain as a cramp that will feel sudden then goes away and then comes back again. Patient reports that normal bowel movement at times and sometimes she feels like she constipated with no bowel movements for 2-3 days. Patient started taking probiotics and states that she is able to move her bowels better. Does not feel like she empties her bowels completely. Denies melena, hematochezia, unintentional weight has like stools. Denies dyspepsia, dysphagia or odynophagia [facility] Medical History (Updated 12/03/24 @ 16:29 by Fred Rodriguez [facility]) Fatty liver Carpal tunnel syndrome on both sides Asthma Surgical History H/O: H/O tubal ligation Social History Alcohol intake: current Alcohol intake frequency: does not drink Patient Tobacco Use Status: Never used Tobacco Current occupational status: employed Current occupation: The patient works in a school cafeteria, rt hand Female Reproductive History Menstrual Age of Menarche: 12 Review of Systems Const Denies weight gain and Denies weight loss ENT Reports no additional complaints, Denies dysphagia and Denies odynophagia Card Reports no additional complaints Resp Reports no additional complaints GI Reports abdominal pain (Epigastric), Denies belching, Denies melena, Reports bloating, Denies change in bowel habits, Reports constipation, Denies dysphagia, Denies excessive flatus, Denies dyspepsia, Reports heartburn, Denies diarrhea, Denies loose stools, Denies nausea, Denies odynophagia and Denies vomiting Musc Reports no additional complaints Neuro Reports no additional complaints Psych Reports no additional complaints Endo Reports no additional complaints Physical Exam Vital Signs: Last Vital Signs Pulse 80 12/03/24 16:21 BP 126/76 12/03/24 16:21 Pulse Ox 95 12/03/24 16:21 Oxygen Delivery Method Room Air 12/03/24 16:21 BMI result Body Mass Index 40.6 Const General: healthy appearing, no acute distress and well developed Nutritional Appearance: well nourished Orientation/consciousness: patient oriented x3 Resp Effort & Inspection: normal respiratory effort, able to speak in complete sentences, no tracheal deviation and symmetric chest movement Auscultation: clear to auscultation bilaterally Cardio Rate: regular rate GI Inspection: Yes normal to inspection and No distended Palpation (GI): Soft to palpation, not firm, nontender and No hepatosplenomegaly present Auscultation: normal bowel sounds General: Yes no CVA tenderness Back/Spine/Pelvis Back: no CVA tenderness Skin General skin exam: elasticity normal, turgor normal and dry skin Neuro General: patient oriented x3 Psych Appearance: grossly normal Mental Status: mental status grossly normal Assessment & Plan Assessment & Plan (1) GERD (gastroesophageal reflux disease): Code(s): K21.9 - Gastro-esophageal reflux disease without esophagitis Qualifiers: Esophagitis presence: esophagitis presence not specified Qualified Code(s): K21.9 - Gastro-esophageal reflux disease without esophagitis (2) Postprandial abdominal bloating: Code(s): R14.0 - Abdominal distension (gaseous) (3) Postprandial epigastric pain: Code(s): R10.13 - Epigastric pain (4) Abdominal pain, LUQ (left upper quadrant): Code(s): R10.12 - Left upper quadrant pain (5) Constipation: Code(s): K59.00 - Constipation, unspecified Qualifiers: Constipation type: slow transit constipation Qualified Code(s): K59.01 - Slow transit constipation Plan Patient will stop omeprazole in stop pantoprazole 40 mg daily. Avoid dietary triggers with associated syncope for review 3 hours after the of discussed with patient. Patient can continue probiotics and can start taking senna in the evening. Increase fluid intake and activity to promote better bowel motility. Low FODMAP diet discussed with patient. Patient does report left upper quadrant pain in burning as well as bloating. List of food recommended as well as a stool foot avoid given to patient. Patient will go for upper GI series with barium swallow to evaluate for reflux, hiatal hernia. Will check transglutaminase, lipase, vitamin-D, B12, folate, thyroid. Patient will return in 3 months, sooner on as needed basis. Patient is agreeable to plan of care verbalizes understanding of instructions. She was given the opportunity to ask questions all questions answered. Thank you for allowing me to participate in her care Orders: Orders Vitamin D 25-OH (D2 and D3) Today E55.9 - Vitamin D deficiency, unspecified FL upper GI w Ba Swallow Today K21.9 - Gastro-esophageal reflux disease without esophagitis Lipase Today R10.9 - Unspecified abdominal pain Transglutaminase IgA Today R10.9 - Unspecified abdominal pain TSH reflex Free T4 Today K59.00 - Constipation, unspecified Vitamin B12 and Folate Today R19.7 - Diarrhea, unspecified Medications: New sennosides (Natural Senna Laxative) 17.2 mg (2 x 8.6 mg) PO BEDTIME 60 tabs 3RF constipation K59.00 - Constipation, unspecified pantoprazole take one tablet half an hour before breakfast 40 mg PO DAILY 30 tabs 2RF K21.9 - Gastro-esophageal reflux disease without esophagitis Coding Level of Care Code New Pt Level 4 (98066) Diagnoses Gastroesophageal reflux disease, unspecified whether esophagitis present K21.9 Esophagitis presence: esophagitis presence not specified Postprandial abdominal bloating R14.0 Postprandial epigastric pain R10.13 Abdominal pain, LUQ (left upper quadrant) R10.12 Slow transit constipation K59.01 Constipation type: slow transit constipation Time Spent (min) 50 Comment 35 minutes spent with patient and additional 15 minutes spent reviewing her records
[2024-12-03 16:21] VITALS: BP 126/76; PULSE 80; O2SAT 95; BMI 40.6
--- OUTSIDE RECORDS SUMMARY | 2024-12-03 16:45 | XMS_ITS | Encounter Summary ---
Author Organization [employer] Address [address] [facility] 7 [place] [address] Care Team Providers Care Finish Inspector Name Role Phone Sheree Nixon MD Primary Care Pro vider Reason for Visit * Reason Onset Date Comments X-Ray Orders 12/20/2023 Encounter Details Date Type Department Care Team (Late st Contact Info) Description 12/20/2023 Telephone [facility] [address] [place] [address] Sheree Nixon MD [address] [place] [address] X-Ray Orders Social History Tobacco Use Types [...] - 12/20/2023 11:35 AM EDT Tc amadeo Garham at [facility] calling to request a new order states the previous Thoracic Spine w/Contrast order is incorrect and it needs to be Thoracic Spine w/o Contrast patients appt is on 12/21 documented in this encounter Plan of Treatment Upcoming Encounters Date Type Department Care Team (Late st Contact Info) Description 12/09/2024 3:15 PM EDT Office Visit [facility] [address] [place] [phone] Yara Dejesus CNM [address] [place] [address] 12/12/2024 9:00 AM EDT Office Visit [facility] [address] [place] [phone] Sheree Nixon MD [address] [place] [phone] documented as of this encounter Visit Diagnoses Not on filedocumented in this encounter Additional Health Concerns Assessment Noted Time PHQ-9 Depression Total Score: 2 10/26/19 23 1:54 PM EDT documented as of this encounter Care Teams Finish Inspector Relationship Specialty Start Date End Date Sheree Nixon MD [address] [place] [phone] PCP - General Internal Medicine 04/26/23 documented as of this encounter
--- OUTSIDE RECORDS SUMMARY | 2024-12-03 16:45 | XMS_ITS | Encounter Summary ---
Author Organization [employer] Address [address] [facility] [facility] [address] 7[address] [place] [address] Care Team Providers Care Crisis Therapist Name Role Phone Gentry Watkins Primary Care Provider Unavail able Sheree Nixon MD Primary Care Pro vider Reason for Visit * Reason Onset Date Comments triage 11/17/2022 Encounter Details Date Type Department Care Team (Late st Contact Info) Description 11/17/2022 Telephone [facility] [address] [place] [address] Gentry Watkins AGNP triage Social History Tobacco [...] 11/17/2022 10:33 AM EDT Triage call with [employer] Cabinet Installer ID [id number] Pt calls reporting vaginal itchiness, Neg for [...] caller The caller accepted this outcome speaks montenegrin documented in this encounter Plan of Treatment Upcoming Encounters Date Type Department Care Team (Late st Contact Info) Description 12/09/2024 3:15 PM EDT Office Visit [facility] [address] [place] [phone] Yara Dejesus CNM [address] [place] [address] 12/12/2024 9:00 AM EDT Office Visit [facility] [address] [place] [phone] Sheree Nixon MD [address] [place] [address] documented as of this encounter Visit Diagnoses Not on filedocumented in this encounter Additional Health Concerns Assessment Noted Time PHQ-9 Depression Total Score: 2 10/26/19 23 1:54 PM EDT documented as of this encounter Care Teams Crisis Therapist Relationship Specialty Start Date End Date Gentry Watkins AGNP PCP - General Family Medicine 10/16/22 04/25/23 Sheree Nixon MD [address] [place] [address] PCP - General Internal Medicine 04/26/23 documented as of this encounter
--- OUTSIDE RECORDS SUMMARY | 2024-12-03 16:45 | XMS_ITS | Clinical Summary ---
Author Organization [facility] ity Address [address] [place] [address] Care Team Providers Care Fitting Room Attendant Name Role Phone Sheree Nixon MD Primary Care Pro vider Social History Tobacco Use Types Packs/Day Years Used Date Smoking Tobacco: Never Assessed Comments Unknown Sex and Gender Information Value Date Recorded Sex Assigned at Not on file Legal Sex Female 8:29 PM EST Gender Identity Not on file Sexual Orientation [...] Vaccine (2023-2 5 season) 2024 Influenza Vaccine (Season Ended) 2025 HIB Vaccines Aged Out No longer eligi [...] patient's age to complete this topic Meningococcal B Vaccine Aged Out No l onger eligible based on patient's age to complete [...] age to complete this topic Care Teams Fitting Room Attendant Relationship Specialty Start Date End Date Sheree Nixon MD 9 [facility] 9 [place] [address] PCP - General 12/25/23
--- OUTSIDE RECORDS SUMMARY | 2024-12-03 16:45 | XMS_ITS | Encounter Summary ---
Author Organization [employer] Address 75 [facility] 7 [place] [address] Care Team Providers Care Digital Press Operator Name Role Phone Sheree Nixon MD Primary Care Pro vider Reason for Visit * Reason Onset Date Comments MRI 11/28/2023 Encounter Details Date Type Department Care Team ([facility] st Contact Info) Description 11/28/2023 Telephone [facility] [address] [place] [address] Sheree Nixon MD [address] [place] [address] MRI Social History Tobacco Use Types Packs/Day [...] to MRI [place] [facility] [place] was [place] for [place]. [facility] [place] her to contact pcp to for er to get the MRI in a different facility with a open machine. Please contact pt at [phone]. documented in this encounter Plan of Treatment Upcoming Encounters Date Type Department Care Team (Late st Contact Info) Description 12/09/2024 3:15 PM EDT Office Visit [facility] [address] [place] [phone] Yara Dejesus CNM [address] [place] [address] 12/12/2024 9:00 AM EDT Office Visit [facility] [address] [place] [phone] Sheree Nixon MD [address] [place] [phone] documented as of this encounter Visit Diagnoses Not on filedocumented in this encounter Additional Health Concerns Assessment Noted Time PHQ-9 Depression Total Score: 2 10/26/19 23 1:54 PM EDT documented as of this encounter Care Teams Digital Press Operator Relationship Specialty Start Date End Date Sheree Nixon MD [address] [place] [phone] PCP - General Internal Medicine 04/26/23 documented as of this encounter
--- OUTSIDE RECORDS SUMMARY | 2024-12-03 16:45 | XMS_ITS | Encounter Summary ---
Author Organization [employer] Address [address] [facility] [address] 7t [place] [address] Care Team Providers Care Biomedical Photographer Name Role Phone Helen Holden MD Primary Care Provider Gentry Gregorio Primary Care Provider Sheree Liu MD Primary Care Pro vider Reason for Visit * Reason Comments Med Refill Encounter Details Date Type Department Care Team (Late Contact Info) Description 09/20/2022 Refill [facility] [address] [place] [phone] Anastacio Neumann, TAWNY Neck muscle strain, initial encounter Social History [...] as of this encounter Plan of Treatment Upcoming Encounters Date Type Department Care Team (Late Contact Info) Description 12/09/2024 3:15 PM EDT Office Visit [facility] [address] [place] [address] [phone] Yara Dejesus CNM [address] [place], [place] [phone] 12/12/2024 9:00 AM EDT Office Visit [facility] [address] [place], [place] [phone] Sheree Nixon MD [address] [place] [address] [phone] documented as of this encounter Visit Diagnoses Diagnosis Neck muscle strain, initial encounter documented in this encounter Care Teams Biomedical Photographer Relationship Specialty Start Date End Date Helen Holden MD PCP - General Family Medicine 06/03/19 10/15/22 Gentry Watkins AGNP PCP - General Family Medicine 10/16/22 04/25/23 Sheree Nixon MD [address] [place] [address] [phone] PCP - General Internal Medicine 04/26/23 documented as of this encounter
--- OUTSIDE RECORDS SUMMARY | 2024-12-03 16:45 | XMS_ITS | Encounter Summary ---
Author Organization [employer] Address 75 [facility] 7 [place] [address] Care Team Providers Care Finished Goods Inspector Name Role Phone Sheree Nixon MD Primary Care Pro vider Reason for Visit * Reason Onset Date Comments Request For Order(s) 12/20/2023 Encounter Details Date Type Department Care Team ([facility] st Contact Info) Description 12/20/2023 Telephone [facility] [address] [place] [address] Sheree Nixon MD [address] [place] [address] Request For Order(s) Social History Tobacco Use [...] Spine without contrast to be faxed to [phone]. Needs new order as soon as possible, pt is scheduled for 12/21 at 11 AM. Any questions, contact shahana at [phone] documented in this encounter Plan of Treatment Upcoming Encounters Date Type Department Care Team (Late st Contact Info) Description 12/09/2024 3:15 PM EDT Office Visit [address] [address] Yara Dejesus CNM [address] [place] [phone] 12/12/2024 9:00 AM EDT Office Visit [address] [address] Sheree Nixon MD [address] [place] [address] documented as of this encounter Visit Diagnoses Not on filedocumented in this encounter Additional Health Concerns Assessment Noted Time PHQ-9 Depression Total Score: 2 10/26/19 23 1:54 PM EDT documented as of this encounter Care Teams Finished Goods Inspector Relationship Specialty Start Date End Date Sheree Nixon MD [address] [place] [phone] PCP - General Internal Medicine 04/26/23 documented as of this encounter
--- OUTSIDE RECORDS SUMMARY | 2024-12-03 16:46 | XMS_ITS | Encounter Summary ---
Author Organization [employer] Address [address] [place] [address] 7 [place] [address] Care Team Providers Care Building Construction Inspector Name Role Phone Sheree Nixon MD Primary Care Pro vider Reason for Visit * Reason Onset Date Comments Nurse Triage 11/26/2024 Encounter Details Date Type Department Care Team ([facility] st Contact Info) Description 11/26/2024 Telephone [facility] [address] [place] [address] Sheree Nixon MD 230 [place] [address] Nurse Triage Social History Tobacco Use Types Packs/Day Years [...] Telephone Encounter - Lesly Jaffe RN - 11/26/2024 2:28 PM EDT Triage call with [facility] cadmium burner ID [id number] Pt reports consistent right sided pelvic pain and cramping with periods. Last period started 11/22 and continues at this time. Pt is requesting to see OBGYN for advice. ASK apt with ROSALIND Dejesus 12/09/24 @ 315pm. Pt agrees with disposition. Insurance is verified as active prior to booking. Protocol Used: Abdominal Pain - Menstrual Cramps (Adult) Protocol-Based Disposition: See in Office or Video Visit within 2 Weeks Positive Triage Question: * Moderate pain (e.g., cramps interfere with normal activities) and not relieved by ibuprofen or naproxen used per Care Advice * All higher-acuity triage questions were negative Care Advice Discussed: * Reassurance and Education - Menstrual Cramps * Pain Medicines for Menstrual Cramps * Use Heat * Reasons To Call Back - Severe pain and not better after taking ibuprofen or naproxen - Menstrual cramps cause you to miss work, school, or other important activities - Menstrual cramps last over 3 days - You become worse * Telephone Encounter - Dominique Oswaldo - 11/26/2024 12:55 PM EDT Symptom: Menstrual Cramps Outcome: Schedule an urgent appointment (within 4 hours) or talk to a nurse or provider soon Reason: Severe pain now The caller accepted this outcome. documented in this encounter Plan of Treatment Upcoming Encounters Date Type Department Care Team (Late st Contact Info) Description 12/09/2024 3:15 PM EDT Office Visit [facility] [address] [place] [address] [phone] Yara Dejesus CNM [address] [place] [address] 12/12/2024 9:00 AM EDT Office Visit [facility] [address] [place] [address] [phone] Sheree Nixon MD [address] [place] [address] [phone] documented as of this encounter Visit Diagnoses Not on filedocumented in this encounter Additional Health Concerns Assessment Noted Time PHQ-9 Depression Total Score: 0 07/02/20 24 2:27 PM EST documented as of this encounter Care Teams Building Construction Inspector Relationship Specialty Start Date End Date Sheree Nixon MD [address] [place] [address] [phone] PCP - General Internal Medicine 04/26/23 documented as of this encounter
--- OUTSIDE RECORDS SUMMARY | 2024-12-03 16:46 | XMS_ITS | Clinical Summary ---
Author Organization [employer] Address 75 [facility] [address] 7t [place] [address] Care Team Providers Care Facilities Planner Name Role Phone Sheree Nixon MD Primary Care Pro vider Allergies Active Allergy Reactions Criticality Noted Date Comments Oxycodone-Acetaminophen Palpitations Low 10/01/2023 Medications Multiple Vitamin (multivitamin) capsule Take 1 capsule by mouth in the morning. Active loratadine (Claritin) 10 MG tablet Take 1 tablet (10 mg) by mouth in the morning. 30 tablet 2 09/28/19 24 Active lidocaine (Lidoderm) 5 % patch Apply 1 patch topically in the morning. Remove & discard patch within 12 hours or as directed by MD. 15 patch 2 10/01/19 24 Active Diclofenac Sodium 1 % gel Apply 1 Application topically if needed each day (pain). 50 g 1 12/17/19 24 Active albuterol (Ventolin HFA) 108 (90 Base) MCG/ACT inhalerIndicati ons:Mild intermittent asthma without complication INHALE 2 PUFFS BY MOUTH EVERY 4-6 HOURS NEEDED FOR WHEEZING 18 g 2 07/02/20 24 Active omega-3 acid ethyl esters (Lovaza) 1 g capsuleIndicati ons:Hypertrigly ceridemia Take 1 capsule (1 g) by mouth 2 times daily. 180 capsule 1 07/02/20 24 025 Active omeprazole (PriLOSEC) [address] capsuleIndicati ons:Epigastric abdominal pain,Heartburn TAKE 1 CAPSULE BY MOUTH BEFORE BREAKFAST 90 capsule 11/13/19 25 Active omeprazole (PriLOSEC) [address] capsuleIndicati ons:Epigastric abdominal pain,Heartburn Take 1 capsule (20 mg) by mouth before breakfast. 90 capsule 07/02/20 24 025 Discontinued Active Problems Problem Noted Date Diagnosed Date [...] & Plan (10/25/2022 2:44 PM EDT): Seeing Cable Respooler at [facility]. Waiting for new transvaginal US on november [...] 22, sometimes heavy cramps heavy bleeding, Had spiral tube winder helper appointment in November. Mammo: 11/29/22 recommendation: annual mammo, this information is reflected in [facility] care gaps. Womens health: 12/26/22: [facility] [...] dose CT, __ AAA US Lipids: Mammo: [facility] last sunday Colonoscopy: 45 y/o DEXA: 65 [...] Encounters Date Type Department Care Team Description 11/26/2024 Telephone [facility] [address] [place], [place] [phone] Sheree Nixon MD Referral 11/26/2024 Telephone [facility] [address] [place] [address] Sheree Nixon MD Nurse Triage 11/12/2024 Refill [facility] [address] [place] [address] Sheree Nixon MD Epigastric abdominal pain; Heartburn 10/17/2024 Population Health Risk Score [facility] () Department [address] [phone] Provider, Population Health Generic 10/14/2024 Telephone [facility]INE [address] [place] [address] Sheree Nixon MD May recall from Last 3 Months Immunizations Name Administration [...] your housing situation today? I have isabella chauncey 05/21/[address] you li [...] 05/17/2024 9:11 AM EDT Plan of Treatment Upcoming Encounters Date Type Department Care Team (Late st Contact Info) Description 12/09/2024 3:15 PM EDT Office Visit [facility] [address] [place] [phone] Yara Dejesus CNM [address] [place] [phone] 12/12/2024 9:00 AM EDT Office Visit [facility] [address] [place] [phone] Sheree Nixon MD [address] [place] [phone] Health Maintenance Due Date Last Done Comments [...] 5 Years) and At-Risk Patients (6 to 49) Years) Completed 05/28/2023 Hepatitis B Vaccines Completed [...] Procedure Name Priority Date/Time Associated Diagnosis Comments BI MAMMOGRAM SCREENING TOMOSYNTHESIS BILATERAL Routine 08/09/2024 [...] Recently Relevant to Health Maintenance Results * BI Mammogram Screening Tomosynthesis Bilateral (08/09/2024 10:03 AM EST) Anatomical Region Laterality Modality Breast Bilateral Mammography 08/09/2024 10:0 3 AM EST Narrative 08/17/2024 5:50 PM EST ? [facility] [place] ? [address] ?[place] [address] ? Mammography Report ? Signed ? Patient: Efrain,Lesley ?MR#: [id number] ?? 96 ? : 1980 ?Acct:[id number] ? Age/Sex: 43 / F ?ADM Date: 01/04/25 ? Loc: HO.MAMMO ? Attending Dr: Sheree Saeed MD ? Ordering Physician: Sheree Nixon MD ?Re ?? sults: 1Negative ? Date of Service: 08/09/24 ?Follow Up: 1 Year From Orig ?? inal Mammogram ? Procedure(s): MM tomosynthesis screening BI ?? Accession Number(s): [id number] ? cc: Sheree Nixon MD ? EXAMINATION: [...] in OV> ? 08/17/24 1748 ? DD/ 02 ? TD/TT: 08/09/24 1016 ? Telephone Clerks Supervisor: ? Procedure Note Donotuseinterpreter, Image - 08/17/2024 [facility] [address] [place], [place] [address] Mammography Report Signed Patient: Elisa Zuniga MMR#: [id number] 96 : 1980Acct:[id number] Age/Sex: 43 / FADM Date: 08/09/24 Loc: HO.MAMMO Attending Dr: Sheree Saeed MD Ordering Physician: Sheree Nixon sults: 1Negative Date of Service: 08/09/24Follow Up: 1 Year From Orig inal Mammogram Procedure(s): MM tomosynthesis screening BI Accession Number(s): [id number] cc: Sheree Nixon MD EXAMINATION: MM SCREENING [...] 08/17/24 1748 DD/ 1003 TD/TT: 08/09/24 1016 Telephone Clerks Supervisor: us Sheree Saeed MD IMG BI PROCEDURES Edited Result - Final * Hemoglobin A1c (04/17/2024 10:00 AM EDT) Hemoglobin A1c 5.7 <6.0 % [facility] Comment:Hemoglobin A1C Refer ence Range Adults: 4.8 - 6.0 % Non diabetic: < 6.0 % Goal: < 7.0 %Additional Action Suggested: > 8.0 %Note: Hemoglobin A1c results are invalid for patients with abnormal amounts of HbF. Blood transfusions may impact the HbA1c concentration in the patient sample. Estimated Average Glucose 117 mg/dL [facility] Comment:eAG = Estimated ave rage glucose which is %A1C expressed asaverage glucose, using the formula of the A7E-NhznsdkKvhereo Glucose study (ADAG), Diabetes Care, Vol.31,#8,Mar. 2007 Blood Venous blood specimen / Unknown 04/17/2024 10:00 AM EDT 04/17/2024 11:19 AM EDT us Pranav Frausto MD LAB BLOOD ORDERABLES Final Resul t [facility] [address] [place] [address] [phone] * Lipid Panel, Standard (06/21/2023 7:01 AM EST) Triglycerides 149 <150 mg/dL [facility] Comment:Desirable Triglyceri de: less than 150 mg/dLBorderline High Triglyceride 150-199 mg/dLHigh Triglyceride: 200-499 mg/dLVery High Triglyceride: greater than or equal to 5OO mg/dL Cholesterol 162 <200 mg/dL [facility] Comment:Desirable Cholestero l: less than 200 mg/dLBorderline High Cholesterol: 200-239 mg/dLHigh Cholesterol: greater than 239 mg/dL LDL Cholesterol Calculated 86 <100 mg/dL [facility] Comment:Desirable LDL: less than 100 mg/dLNear Optimal/Above Optimal LDL: 110- 129 mg/dLBorderline High LDL: 130-159 mg/dLHigh LDL: 160-189 mg/dLVery High LDL: greater than or equal to 190 mg/dL HDL Cholesterol 47 >40 mg/dL [facility] Comment:Desirable HDL: great er than 40 mg/dL Note: This HDL assay may give artificially low results in patients with liver disease. Blood Venous blood specimen / Unknown 06/21/2023 7:01 AM EST 06/21/2023 7:01 AM EST Sheree Saeed MD LAB BLOOD ORDERAB LES Final Result Performing Organization Address [facility]/ZIP Co de Phone Number [facility] [address] [place] [phone] * Hepatitis C Ab (12/18/2022 2:08 PM EDT) Hepatitis C Antibody Nonreactive Nonreactive [facility] Comment:Antibodies to HCV no t detected; does not exclude early acuteHCV infection. 12/18/2022 2:08 PM EDT 12/18/2022 2:09 PM EDT [facility] External Provider LAB BLO OD ORDERABLES Final Result Performing Organization Address [facility] Co de Phone Number [facility] [address] [place] [phone] * HIV Ab/Ag (EDEL LAZARO) (12/18/2022 2:08 PM EDT) HIV AB/AG Nonreactive Nonreactive [facility] Comment:HIV-1 p24 Ag and/or HIV-1/HIV-2 Ab not detected.A test result that is nonreactive does not exclude thepossibility of exposure to or infection with HIV-1 and/orHIV-2. Nonreactive results in this assay for individualswith prior exposure to HIV-1 and/or HIV-2 may be due toantigen and antibody levels that are below the limit ofdetection of this assay.The [employer] HIV Ag/Ab Combo assay result andsupplemental assay results should be interpreted inconjunction with the patient's clinical presentation,history and other laboratory results. If the results areinconsistent with clinical evidence, additional testing issuggested to confirm the result. 12/18/2022 2:08 PM EDT 12/18/2022 2:09 PM EDT [facility] External Provider LAB BLO OD ORDERABLES Final Result [facility] [address] [place] [address] [phone] * Hm Pap Smear (10/16/2022) Pap Negative for intraephithelial lesion or malignancy Negative for intraephithelial lesion or malignancy, Other HPV Not Detected Undetected, Indeterminate, Quantitative, Not Detected Historical Provider MD HEALTH MAINTENANCE Final Result from Last 3 Months or Most Recently Relevant to Health Maintenance Insurance [employer] C3 Care Teams Facilities Planner Relationship Specialty Start Date End Date Sheree Nixon MD [address] [place] [phone] PCP - General Internal Medicine 04/26/23
== END 2024-12-03 16:57 | disposition home or self-care (01) ==
PROVIDERS: PCP Student in an Organized Health Care Education/Training Program; Visit Provider Nurse Practitioner Family
DX: K21.9 Gastro-esophageal reflux disease without esophagitis (principal); R14.0 Abdominal distension (gaseous); R10.13 Epigastric pain; R10.12 Left upper quadrant pain; K59.01 Slow transit constipation
CPT/HCPCS: 99204

== ENCOUNTER → 2024-12-03 16:16 | Outpatient (BNVA) | payer OTHER, SELFPAY | PROVIDERS: PCP Student in an Organized Health Care Education/Training Program; Visit Provider Nurse Practitioner Family | DX: K21.9 Gastro-esophageal reflux disease without esophagitis (principal); K59.01 Slow transit constipation; R14.0 Abdominal distension (gaseous); R10.13 Epigastric pain; R10.12 Left upper quadrant pain | CPT/HCPCS: 99202 ==

== ENCOUNTER 2024-12-09 15:57 | Outpatient (REF) | payer OTHER, SELFPAY ==
--- OUTSIDE RECORDS SUMMARY | 2024-12-09 16:55 | XMS_ITS | Clinical Summary ---
Author Organization [facility] ity Address [address] [place] [address] Care Team Providers Care Medical Lab Technician Name Role Phone Sheree Nixon MD Primary [...] age to complete this topic Care Teams Medical Lab Technician Relationship Specialty Start Date End Date Sheree Nixon MD [address] [facility] [facility] [address] [place] [phone] PCP - General 12/25/23
[2024-12-09 17:50] LABS: Folate 14.1 ng/mL (> or = 4.0); Vitamin B12 414 pg/mL (200-900)
[2024-12-09 17:58] LABS: Lipase 26 U/L (8-78)
[2024-12-09 18:15] LABS: TSH reflex Free T4 1.03 uIU/mL (0.32-4.0)
[2024-12-10 21:09] LABS: Transglutaminase IgA <1.0 U/mL
[2024-12-13 15:07] LABS: Vitamin D 25-OH, D2 <4 ng/mL; Vitamin D 25-OH, D3 30 ng/mL; Vitamin D 25-OH, Total 30 ng/mL (30-100)
== END 2024-12-09 15:58 | disposition home or self-care (01) ==
LOC: HO.LAB 15:57
PROVIDERS: PCP Student in an Organized Health Care Education/Training Program; Visit Provider Nurse Practitioner Family
DX: R10.9 Unspecified abdominal pain (principal); K59.00 Constipation, unspecified; R19.7 Diarrhea, unspecified; E55.9 Vitamin D deficiency, unspecified
CPT/HCPCS: 36415; 82306; 82607; 82746; 83690; 84443; 86364

== ENCOUNTER 2025-01-07 15:45 | Outpatient (REF) | payer OTHER, SELFPAY ==
--- NOTE | ~2025-01-07 | US_ITS ---
EXAMINATION: US PELVIS CLINICAL INFORMATION: Dysmenorrhea COMPARISON: October 30, 2022 TECHNIQUE: Ultrasound of the pelvis is performed using both transabdominal and transvaginal transducers along with Doppler. Transvaginal imaging is performed due to inadequate visualization transabdominally. FINDINGS: Uterus: The uterus is anteverted and measures 12.8 x 3.9 x 7.6 cm. Nabothian cysts are noted in the cervix. The double wall endometrial thickness is 9 mm. Heterogeneous hypodensity in the subserosal region projecting out from the right fundus, near the isthmus, measures 3.1 x 2.5 x 2.8 cm. There is blood flow on color Doppler. Second hypoattenuating area in the left uterine body myometrium measures 2.4 x 2.4 x 2.6 cm. Adnexa: Both ovaries are visualized. There is normal color flow to the adnexa. There is no ovarian torsion. There is no pelvic ascites or fluid collection. Right ovary measures 3.4 x 2.6 x 2.4 cm. cm. Left ovary measures 2.3 x 1.6 0.7 cm. cm. US/US pelvic and transvaginal IMPRESSION: Fibroid uterus. Electronically signed by: Jonah Erickson MD 01/07/2025 05:08 PM EDT
== END 2025-01-07 15:46 | disposition home or self-care (01) ==
LOC: HO.US 15:45
PROVIDERS: PCP Student in an Organized Health Care Education/Training Program; Visit Provider Advanced Practice Midwife
DX: N94.6 Dysmenorrhea, unspecified (principal)
CPT/HCPCS: 76830; 76856

== ENCOUNTER → 2025-01-07 15:47 | Outpatient (BNV) | payer OTHER, SELFPAY | PROVIDERS: PCP Student in an Organized Health Care Education/Training Program; Visit Provider Radiology Diagnostic Radiology | DX: N94.6 Dysmenorrhea, unspecified (principal) | CPT/HCPCS: 76830; 76856 ==

== ENCOUNTER 2025-02-23 14:46 | Outpatient (AMB) | payer OTHER, SELFPAY ==
[2025-02-23 14:49] VITALS: BP 122/72; PULSE 64; O2SAT 100; BMI 40.1
--- NOTE | 2025-02-23 14:49 | A.OFFVIS_ITS ---
Vital Signs 02/23/25 14:49 Height 5 ft 2 in Weight 219 lb BMI 40.1 BP 122/72 Blood Pressure Location Rt brachial Position Sitting Pulse 64 Pulse Source Pulse Oximeter Pulse Oximetry (%) 100 Oxygen Delivery Method Room Air Intake Visit Reasons: 3 mos FUV. GERD mgmt. Intake Note: Est pt for mgmt of GERD. Labs done. Imaging Scheduled. CC; Pt denies any new sx or concerns at this time. No changes since last visit. [employer] Sander Required: Yes Machine Woodworking Sander Services: Machine Woodworking Sander Present Machine Woodworking Sander Name: Mona Smart166/Breann (GI) Information Interpreted: clinical only Accompanied by: Self / Same As Patient Allergies No Known Allergies (No Known Allergies*) Allergy (Verified 02/23/25 14:49) HPI HPI 3 mos FUV. GERD mgmt.: Details: LAST VISIT: GERD (gastroesophageal reflux disease) Postprandial abdominal bloating Postprandial epigastric pain Abdominal pain, LUQ (left upper quadrant) Constipation Plan Patient will stop omeprazole in stop pantoprazole 40 mg daily. Avoid dietary triggers with associated syncope for review 3 hours after the of discussed with patient. Patient can continue probiotics and can start taking senna in the evening. Increase fluid intake and activity to promote better bowel motility. Low FODMAP diet discussed with patient. Patient does report left upper quadrant pain in burning as well as bloating. List of food recommended as well as a stool foot avoid given to patient. Patient will go for upper GI series with barium swallow to evaluate for reflux, hiatal hernia. Will check transglutaminase, lipase, vitamin-D, B12, folate, thyroid. Patient will return in 3 months, sooner on as needed basis. Patient is agreeable to plan of care verbalizes understanding of instructions. She was given the opportunity to ask questions all questions answered. ? Thank you for allowing me to participate in her care Orders Vitamin D 25-OH (D2 and D3) Today E55.9 FL upper GI w Ba Swallow Today K21.9 Lipase Today R10.9 Transglutaminase IgA Today R10.9 TSH reflex Free T4 Today K59.00 Vitamin B12 and Folate Today R19.7 New sennosides (Natural Senna Laxative) 17.2 mg (2 x 8.6 mg) PO BEDTIME 60 tabs 3RF constipation K59.00 pantoprazole take one tablet half an hour before breakfast 40 mg PO DAILY 30 tabs 2RF K21.9 TODAY'S VISIT Patient is here today for follow-up and to discuss lab results. Patient reports that since change of her PPI she has been doing better. Patient is taking pantoprazole in the morning. Reports acid reflux suppressed for the most part. Occasional epigastric pain depending on what she eats, something that she can control with her diet. Takes Senokot as needed. Patient denies melena, hematochezia. Denies dyspepsia, dysphagia or odynophagia. She will be due to go for colonoscopy next year in November. Patient denies any family history of colorectal cancer. Patient denies any other GI concerning symptoms today. Reports cramping in her right lower quadrant during periods or when she is ovulating [facility] Medical History (Updated 02/23/25 @ 19:32 by Margarita Guillaume [facility]-) Constipation GERD (gastroesophageal reflux disease) Fatty liver Carpal tunnel syndrome on both sides Asthma Surgical History H/O: H/O tubal ligation Social History Alcohol intake: current Alcohol intake frequency: does not drink Patient Tobacco Use Status: Never used Tobacco Current occupational status: employed Current occupation: The patient works in a [employer] Female Reproductive History Menstrual Age of Menarche: 12 Review of Systems Const Denies weight gain and Denies weight loss ENT Reports no additional complaints, Denies dysphagia and Denies odynophagia Card Reports no additional complaints Resp Reports no additional complaints GI Reports abdominal pain (Epigastric), Denies belching, Denies melena, Reports bloating, Denies change in bowel habits, Reports constipation, Denies dysphagia, Denies excessive flatus, Denies dyspepsia, Reports heartburn, Denies diarrhea, Denies loose stools, Denies nausea, Denies odynophagia and Denies vomiting Musc Reports no additional complaints Neuro Reports no additional complaints Psych Reports no additional complaints Endo Reports no additional complaints Physical Exam Vital Signs: Last Vital Signs Pulse 64 02/23/25 14:49 BP 122/72 02/23/25 14:49 Pulse Ox 100 02/23/25 14:49 Oxygen Delivery Method Room Air 02/23/25 14:49 BMI result Body Mass Index 40.1 Const General: healthy appearing, no acute distress and well developed Nutritional Appearance: well nourished Orientation/consciousness: patient oriented x3 Resp Effort & Inspection: normal respiratory effort, able to speak in complete sentences, no tracheal deviation and symmetric chest movement Auscultation: clear to auscultation bilaterally Cardio Rate: regular rate GI Inspection: Yes normal to inspection and No distended Palpation (GI): Soft to palpation, not firm, nontender and No hepatosplenomegaly present Auscultation: normal bowel sounds General: Yes no CVA tenderness Back/Spine/Pelvis Back: no CVA tenderness Skin General skin exam: elasticity normal, turgor normal and dry skin Neuro General: patient oriented x3 Psych Appearance: grossly normal Mental Status: mental status grossly normal Results Reviewed Results Reviewed: Laboratory Tests 12/09/24 16:11 Lipase 26 Vitamin B12 414 25-OH Vitamin D Total 30 Folate 14.1 TSH 1.03 Tiss Transglutamin IgA <1.0 Assessment & Plan Assessment & Plan (1) Gastroesophageal reflux disease: Code(s): K21.9 - Gastro-esophageal reflux disease without esophagitis Qualifiers: Esophagitis presence: esophagitis presence not specified Qualified Code(s): K21.9 - Gastro-esophageal reflux disease without esophagitis (2) Postprandial abdominal bloating: Code(s): R14.0 - Abdominal distension (gaseous) (3) Postprandial epigastric pain: Code(s): R10.13 - Epigastric pain (4) Left upper quadrant abdominal pain: Code(s): R10.12 - Left upper quadrant pain (5) Constipation: Code(s): K59.00 - Constipation, unspecified Qualifiers: Constipation type: slow transit constipation Qualified Code(s): K59.01 - Slow transit constipation Plan Continue taking pantoprazole in the morning. Avoid dietary triggers and late at night. Staying upright for minimum 3 hours after meals discussed with patient. Continue senna as needed. Increase fluid intake and activity to promote better bowel motility. Patient will follow-up in our office in 6 months. She will call us if she will have any GI concerning symptoms. She is agreeable to this plan and verbalizes understanding of instructions. She was given the opportunity to ask questions and all questions answered. Thank you for allowing me to participate in her care Medications: Refilled pantoprazole take one tablet half an hour before breakfast 40 mg PO DAILY 90 tabs 2RF K21.9 - Gastro-esophageal reflux disease without esophagitis sennosides (Natural Senna Laxative) 17.2 mg (2 x 8.6 mg) PO BEDTIME 90 tabs 3RF constipation K59.00 - Constipation, unspecified Coding Level of Care Code Est Pt Level 3 (43050) Diagnoses Gastroesophageal reflux disease, unspecified whether esophagitis present K21.9 Esophagitis presence: esophagitis presence not specified Postprandial abdominal bloating R14.0 Postprandial epigastric pain R10.13 Left upper quadrant abdominal pain R10.12 Slow transit constipation K59.01 Constipation type: slow transit constipation Time Spent (min) 30 Comment 20 minutes spent with patient and additional 10 minutes spent reviewing her records
--- OUTSIDE RECORDS SUMMARY | 2025-02-23 15:34 | XMS_ITS | Clinical Summary ---
Author Organization [facility] ity Address [address] [place] [address] Care Team Providers Care Double Needle Operator Name Role Phone Sheree Nixon MD [...] Cervical Cancer Screening: P ap Smear 2001 HIV Screening 08/31/2023 Hepatitis C Screening 08/31/2023 Social Influencers of Health Screening 08/31/2023 COVID-19 Vaccine (1 - 2023-2 5 season) 2024 Depression Screening 08/06/2024 Influenza Vaccine (#1) 2025 HIB Vaccines Aged Out No longer [...] 5 Years) and At-Risk Patients (6 to 49 Years) Aged Out No longer eligible b ased on patient's age to complete this topic RSV Immunization Patients Un binu 20 months Aged Out No longer eligible b ased on patient's age to complete this topic Varicella Vaccines Aged Out No longer eligible based on patient's age to complete this topic Care Teams Double Needle Operator Relationship Specialty Start Date End Date Sheree Nixon MD [address] [facility] [address] [place] [id number] PCP - General 12/25/23
== END 2025-02-23 15:25 | disposition home or self-care (01) ==
PROVIDERS: PCP Student in an Organized Health Care Education/Training Program; Visit Provider Nurse Practitioner Family
DX: K21.9 Gastro-esophageal reflux disease without esophagitis (principal); R14.0 Abdominal distension (gaseous); R10.13 Epigastric pain; R10.12 Left upper quadrant pain; K59.01 Slow transit constipation
CPT/HCPCS: 99213

== ENCOUNTER → 2025-02-23 14:46 | Outpatient (BNVA) | payer OTHER, SELFPAY | PROVIDERS: PCP Student in an Organized Health Care Education/Training Program; Visit Provider Nurse Practitioner Family | DX: K21.9 Gastro-esophageal reflux disease without esophagitis (principal); R10.13 Epigastric pain; R14.0 Abdominal distension (gaseous); K59.01 Slow transit constipation; R10.12 Left upper quadrant pain | CPT/HCPCS: 99212 ==

== ENCOUNTER 2025-07-17 09:04 | Outpatient (REF) | payer OTHER, SELFPAY ==
[2025-07-17 11:13] LABS: Hematocrit 40.0 % (37.0-47.0); Hemoglobin 13.3 g/dl (12.0-16.0); Mean Corpuscular HGB Conc 33.3 g/dl (31.0-35.0); Mean Corpuscular Hemoglobin 29.6 pg (27.0-33.0); Mean Corpuscular Volume 89.1 fL (80.0-98.0); NRBC Abs Auto 0.000 X10*3/uL (0.0-0.012); NRBC Pct Auto 0.0 /100WBC (0.0-0.2); Platelet Count 241 X10*3/uL (160-400); Red Blood Count 4.49 X10*6/uL (4.20-5.50); White Blood Count 4.2 X10*3/uL (4.8-10.8)
[2025-07-17 11:44] LABS: Alanine Aminotransferase 14 U/L (0-31); Albumin Level 4.3 g/dL (3.5-5.0); Alkaline Phosphatase 42 U/L (39-117); Anion Gap 11 (12-20); Aspartate Amino Transferase 23 U/L (5-31); Blood Urea Nitrogen 17 mg/dL (9-16); Calcium 9.1 mg/dL (8.4-10.2); Carbon Dioxide 27 mmol/L (22-29); Chloride 105 mmol/L (96-108); Cholesterol 159 mg/dL (<200); Estimated Glomerular Filt Rate > 60; HDL Cholesterol 50 mg/dL (>40); Potassium 4.1 mmol/L (3.3-5.1); Sodium 139 mmol/L (135-145); Total Protein 7.4 g/dL (6.5-8.0); Triglycerides 144 mg/dL (<150)
[2025-07-17 11:55] LABS: Syphilis Screen Nonreactive (Nonreactive)
[2025-07-17 11:56] LABS: HBS Num1 1.48 mIU/mL (0-7.99); HBsAGNum1 0.36 S/CO (0.00-0.99); HIV Num 1 0.07 S/CO (0.00-0.99); Hepatitis B Surface Antigen Negative (Negative); ~HepC Num1 0.17 S/CO (0.00-0.79); ~Hepatitis B Surface Antibody NONREACTIVE (Nonreactive); ~Hepatitis C Antibody Nonreactive (Nonreactive)
== END 2025-07-17 09:05 | disposition home or self-care (01) ==
LOC: HO.HHCL 09:04
PROVIDERS: PCP Student in an Organized Health Care Education/Training Program; Visit Provider Student in an Organized Health Care Education/Training Program
DX: Z00.00 Encounter for general adult medical examination without abnormal findings (principal); Z11.4 Encounter for screening for human immunodeficiency virus [HIV]; Z11.3 Encounter for screening for infections with a predominantly sexual mode of transmission; Z11.59 Encounter for screening for other viral diseases
CPT/HCPCS: 36415; 80053; 80061; 82306; 83036; 85027; 86706; 86780; 86803; 87340; 87389

== ENCOUNTER 2025-07-20 08:52 | Outpatient (REF) | payer OTHER, SELFPAY ==
[2025-07-20 15:10] LABS: CT PCR NOT DETECTED (Not Detect.); NG PCR NOT DETECTED (Not Detect.)
== END 2025-07-20 08:53 | disposition home or self-care (01) ==
LOC: HO.HHCL 08:52
PROVIDERS: PCP Student in an Organized Health Care Education/Training Program; Visit Provider Student in an Organized Health Care Education/Training Program
DX: Z00.00 Encounter for general adult medical examination without abnormal findings (principal); Z20.2 Contact with and (suspected) exposure to infections with a predominantly sexual mode of transmission
CPT/HCPCS: 87491; 87591